=== PATIENT | female | born 1950 | race Caucasian/White ===

== ENCOUNTER 2019-10-02 11:54 | Emergency (ER) | payer MEDICARE, SELFPAY ==
--- NOTE | ~2019-10-02 | XR_ITS ---
EXAMINATION: XR chest 2V DATE: 10/02/2019 12:51 INDICATION: Cough TECHNIQUE: PA and lateral views of the chest are obtained. COMPARISON: 11/22/2011 FINDINGS: There is a large hiatal hernia. The lungs are free of acute opacities. There is no pleural effusion or pneumothorax. The cardiomediastinal silhouette is normal. Thoracolumbar levoscoliosis is noted. IMPRESSION: 1. No acute cardiopulmonary abnormality. 2. Large hiatal hernia. Reviewed, dictated and finalized at location A.
[2019-10-02 12:09] VITALS: BP 124/69; PULSE 89; RESP 18; TEMP 37.3; O2SAT 100
--- NOTE | 2019-10-02 12:35 | ED.URI ---
HPI - URI/Sore Throat General Chief Complaint: Upper Respiratory Infection Stated Complaint: Cough,Congestion Source: patient Mode of arrival: ambulatory Limitations: no limitations History of Present Illness HPI Narrative: The patient, who is a former smoker/ drinker, presents with 4 day history of dry cough, possible wheezes,definite nasal congestion mild sore throat, pain upon inhalation. No fever measured, earache, precordial CP, shortness of breath, swelling to hands or feet. Pt states that she traveled September 18 from [place], [place] to [facility]. She uses wheel chair , and occ walker after amputation ~[2010] . Pt notes living with her healthy daughter and denies any sick contacts. She is unsure of the last time she had a CXR and denies using an nebulizers or inhalers. MD elicited complaint: cough (dry) Onset (ago): day(s) (4) Context: recent travel Associated symptoms: sore throat and other (pain upon inhalation, wheezes) Related Data Home Medications Medication Instructions Recorded Confirmed amlodipine 2.5 mg PO DAILY 10/02/19 10/02/19 clonidine HCl 0.1 mg PO DAILY 10/02/19 10/02/19 gabapentin 100 mg PO DAILY 10/02/19 10/02/19 simvastatin 5 mg PO DAILY 10/02/19 10/02/19 triamterene 50 mg PO DAILY 10/02/19 10/02/19 Allergies Allergy/AdvReac Type Severity Reaction Status Date / Time Penicillins Allergy Unknown Verified 10/02/19 12:14 Review of Systems Review of Systems: Narrative: General/Constitutional: Denies: weight loss,fever Eyes: Denies: Redness,discharge Ears/Nose/Throat: Denies: Epistaxis,ear discharge Respiratory: Denies: Hemoptysis Gastrointestinal: Denies: Vomiting, Bleeding-rectal Skin: Denies: Lumps, eruption Neurologic: Denies: Focal Weakness,Sz Hematologic: Denies: Petechiae/Purpura Psychiatric: Denies: Suicidal ideation All Other Systems: Reviewed and Negative All systems reviewed & are unremarkable except as noted in HPI and below [facility] Family History Family History (Updated 10/25/16 @ 23:56 by DOCTOR UNKNOWN) Father Acute myocardial infarction, Onset Age: 61 Patient's father is Sibling Patient's sister is in good health, Onset Age: 72 Mother Carcinoma of colon, Onset Age: 77 Patient's mother is Social History Social History Alcohol intake: never Comments At time of signature, agree with nursing past medical, surgical, social and family history. There is no relevant family history pertinent to the presenting complaint. Exam Narrative: Exam Narrative: General Appearance: Aged appearing, Well nourished EYE: PERRLA, Conjunctiva clear Ears: Auditory canal normal, TM normal Nose: Rhinorrhea, Mucousal erythema Mouth/Throat: MM moist, Uvula midline, Pharyngeal erythema Neck: Supple, No adenopathy Respiratory: No respiratory distress, Increased AP diameter equal, CTA with decreased BS at bases Cardiovascular: RRR, No JVD Musculoskeletal: scoliotic, diffuse decreased OM and strength Skin: Warm, Dry Neurological: A&O x3, CN II-XII intact Psychiatric: Normal mood, Normal affect Course Vital Signs Vital signs: Vital Signs Temperature 99.1 F 10/02/19 12:09 Pulse Rate 89 10/02/19 12:09 Respiratory Rate 18 10/02/19 12:09 Blood Pressure 124/69 10/02/19 12:09 Pulse Oximetry 100 10/02/19 12:09 Temperature 99.1 F 10/02/19 12:09 Pulse Rate 89 10/02/19 12:09 Respiratory Rate 18 10/02/19 12:09 Blood Pressure 124/69 10/02/19 12:09 Pulse Oximetry 100 10/02/19 12:09 MDM - URI/Sore Throat Lab Data Labs: Influenza A Screen Negative Reference Range: Negative Influenza B Screen Negative Reference Range: Negative Discharge Plan Discharge Clinical Impression: Upper respiratory infection Qualifiers: URI type: unspecified URI Qualified Code(s): J06.9 - Acute upper respiratory infection, unspecified Patient Disposition: Home, Self-Car
== END 2019-10-02 13:25 | disposition home or self-care (01) ==
PROVIDERS: Emergency Provider Emergency Medicine
DX: J06.9 Acute upper respiratory infection, unspecified (principal); G62.9 Polyneuropathy, unspecified; E78.00 Pure hypercholesterolemia, unspecified; I10 Essential (primary) hypertension; Z89.431 Acquired absence of right foot
CPT/HCPCS: 71046; 87804; 99203; G0463

== ENCOUNTER 2020-06-15 11:37 | Inpatient (IN) | payer MEDICARE, MEDICAID, SELFPAY ==
--- NOTE | ~2020-06-15 | MR_ITS ---
EXAMINATION: MR foot LT wo con DATE: 06/19/2020 18:31 INDICATION: Wound at the left great toe TECHNIQUE: Magnetic resonance imaging (MRI) of the left fore/mid foot was performed without intraveno us contrast. Sequences included sagittal T1-weighted FSE, sagittal fluid sensitive FSE STIR, coronal T2-weighted FS FSE, coronal T1-weighted FSE, axial T2-weighted FS FSE, and axial T1-weighted FSE. Int ravenous contrast unable to be administered at this time due to nonfunctional peripheral IV. Postcont rast imaging is required amount the patient be returned and additional pre and postcontrast images ob tained following placement of a functional IV. COMPARISON: Left foot radiographs dated 06/15/2020 FINDINGS: Second-fourth hammertoe deformities. No fracture. There is erosion of the tuft of the left first dist al phalanx with marrow edema throughout the distal phalanx which is concerning for osteomyelitis. The re is however no discrete geographic region of absent T1 marrow fat signal to more specifically sugge st this. Also complaining concern for osteomyelitis is the presence of a fluid collection measuring u p to 5 mm in maximal thickness which extends circumferentially around the base of the distal phalanx and mid to distal aspect of the proximal phalanx which is suspicious for abscess. Bone marrow signal is otherwise normal throughout with no other lesions suspicious for osteomyelitis. Mild polyarticular osteoarthritis at multiple tarsal metatarsal, metatarsophalangeal and interphalangeal joints. IMPRESSION: 1. Marrow edema at the first distal phalanx with erosion at the tuft which is concerning for osteomye litis. 2. Fluid collection surrounding the base of the first distal phalanx and proximal to mid aspect of th e proximal phalanx which is suspicious for abscess. 3. Intravenous contrast unable to be administered at this time due to nonfunctional peripheral IV. Po stcontrast imaging is required amount the patient be returned and additional pre and postcontrast lloyd ges obtained following placement of a functional IV. Reviewed, dictated and finalized at location A. RY DERRICK OPERATOR IMPRESSION: 1. Marrow edema at the first distal phalanx with erosion at the tuft which is c oncerning for osteomyelitis. 2. Fluid collection surrounding the base of the first distal phalanx and proxim al to mid aspect of the proximal phalanx which is suspicious for abscess. 3. Intravenous contrast unable to be administered at this time due to nonfuncti onal peripheral IV. Postcontrast imaging is required amount the patient be retu rned and additional pre and postcontrast images obtained following placement of a functional IV.
--- NOTE | ~2020-06-15 | XR_ITS ---
XR foot LT min 3V DATE: 06/15/2020 12:15 INDICATION: Great toe injury, stubbed toe today. TECHNIQUE: 4 views COMPARISON: None FINDINGS: There is diffuse osteopenia. No obvious fracture or dislocation is evident. Due to hammertoe deformities, the phalanges are not op timally demonstrated. If there is concern for an individual no fracture, consider individual toe radi ographs. IMPRESSION: Osteopenia No obvious fracture Hammertoe deformities, which limits evaluation of the toes. If there is concern for specific toe frac ture, recommend individual toe radiographs Reviewed, dictated and finalized at location A. UM EXHIBIT DESIGNER IMPRESSION: Osteopenia No obvious fracture Hammertoe deformities, which limits evaluation of the toes. If there is concern for specific toe fracture, recommend individual toe radiographs
--- NOTE | ~2020-06-15 | US_ITS ---
EXAMINATION: US arterial duplex LE DATE: 06/19/2020 09:39 INDICATION: Arterial occlusive disease. Left foot ulcer. TECHNIQUE: Multiple grayscale and Doppler ultrasound images of the arteries of the lower limbs were o btained. 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 Peak systolic velocity is 61 cm/s in common femoral artery and 41 cm/s in profunda femoris artery. There is total occlusion of right superficial femoral artery. Peak systolic velocity is 29 cm/s in right popliteal artery, 11 cm/s in right posterior tibial artery, 13 cm/s in peroneal artery, and 29 cm/s in anterior tibial art preston. Peak systolic velocity is 348 cm/s in left common femoral artery and 84 cm/s in profunda femoral chuckie ry. There is total occlusion of proximal to mid left superficial femoral artery. Peak systolic veloci ty is 19 cm/s in distal superficial femoral artery, 28 cm/s in popliteal artery, 10 cm/s in posterior tibial artery, 15 cm/s in peroneal artery, and 40 cm/s in anterior tibial artery. IMPRESSION: 1. 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 2. 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 3. Increased pressure gradients between left common femoral artery and profunda femoral artery and be tween left popliteal artery and posterior tibial artery, consistent with [id number] stenosis. Reviewed, dictated and finalized at location A. BLOCK ARTIST IMPRESSION: 1. 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 2. 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 3. Increased pressure gradients between left common femoral artery and profunda femoral artery and between left popliteal artery and posterior tibial artery, consistent with [id number] stenosis.
--- NOTE | ~2020-06-15 | US_ITS ---
EXAMINATION: US arterial ankle brachial ind DATE: 06/17/2020 11:19 INDICATION: Peripheral arterial disease. TECHNIQUE: Segmental pressures and plethysmographic and Doppler waveforms of the brachial and lower e xtremity arteries were obtained. COMPARISON: Arterial Doppler and segmental pressures 05/23/2011 FINDINGS: Right and left brachial artery pressures of 149 mm Hg and 136 mm Hg, respectively, are concordant (no rmal difference <= 30 mmHg). There is no detectable flow in the right posterior tibial artery. The right ankle-brachial index (GUY ) is 0.34 (normal >= 0.9-1.0). The right toes are absent. Arterial Doppler waveforms are noisy in roberto carlos salis pedis. There is no detectable flow in the left posterior tibial artery. The left GUY is 0.36. The left great toe is bandaged. Arterial Doppler waveforms are noisy in left dorsalis pedis. IMPRESSION: 1. Severely decreased ABIs, consistent with arterial occlusive disease. Reviewed, dictated and finalized at location A. ASSISTANT
[2020-06-15 11:42] VITALS: BP 125/74; PULSE 112; RESP 16; TEMP 36.9; O2SAT 97
--- NOTE | 2020-06-15 12:07 | ED.LOWEXIN ---
HPI - Extremity Injury (Lower) General Chief Complaint: Extremity Injury, Lower Stated Complaint: toe infection Time Seen by Provider: 06/15/20 11:48 History of Present Illness HPI Narrative: Patient is a 70-year-old female who presents ER with potential infection to her left great toe. Patient reports 4 days ago she kicked her coffee table by accident while walking. She did notice that she may have injured herself. Today she was febrile and she noticed that her toe is red and swollen and bruised. There is redness extending into her midfoot. Patient has history of amputation of all the toes of the opposite foot. She has history of diabetes that is controlled after having lost weight and changing her diet. Related Data Home Medications Medication Instructions Recorded Confirmed clonidine HCl 0.05 mg PO BID 10/02/19 06/15/20 gabapentin 100 mg PO HS 10/02/19 06/15/20 amlodipine 5 mg PO DAILY 06/15/20 06/15/20 melatonin 5 mg PO HS PRN 06/15/20 06/15/20 simvastatin 20 mg PO HS 06/15/20 06/15/20 temazepam 15 mg PO HS 06/15/20 06/15/20 triamterene-hydrochlorothiazid 37.5 tablet PO DAILY 06/15/20 06/15/20 Allergies Allergy/AdvReac Type Severity Reaction Status Date / Time Penicillins Allergy Unknown Rash Verified 06/15/20 11:48 nickel Allergy Rash Verified 06/15/20 11:48 Review of Systems Review of Systems: All systems reviewed & are unremarkable except as noted in HPI and below Constitutional: Constitutional: Denies chills, Reports fever(s) and Denies weakness Cardiovascular: Cardiovascular: Denies chest pain and Denies radiating jaw, neck or arm pain Respiratory: Respiratory: Denies cough and Denies dyspnea Musculoskeletal: Comments: Left great toe swelling and redness. Integumentary/Breasts: Comments: Cellulitis left foot PMFSH Past Medical History Medical History (Updated 06/15/20 @ 17:24 by José Miguel Dominguez MD) Diabetes GERD (gastroesophageal reflux disease) Hypercholesterolemia Hypertension Surgical History Surgical History (Updated 06/15/20 @ 12:13 by José Miguel Dominguez MD) H/O foot surgery Amputation of all the toes of the right foot. History of section History of tonsillectomy Family History Family History Father Acute myocardial infarction, Onset Age: 61 Patient's father is Sibling Patient's sister is in good health, Onset Age: 72 Mother Carcinoma of colon, Onset Age: 77 Patient's mother is Social History Social History Smoking packs per day: 0.75 Smoking cigarettes per day: 15.0 Years smoked: 40 Smoking pack-years: 30.00 Smoking status: Former smoker Smoking end date: 09/19/19 Alcohol intake: current Drinks per week: 7 Substance use: never Substance use type: does not use Spiritual care concerns: No Exam Narrative: Exam Narrative: GENERAL: Well-appearing, well-nourished, and in no acute distress. HEAD: Normocephalic, atraumatic. CHEST: Clear to auscultation. No respiratory distress. HEART: Regular rate and rhythm. Normal peripheral pulses. ABDOMEN: Soft, nontender, nondistended. EXTREMITIES: Right lower extremity with amputation of all the toes of the right foot. Left lower extremity unremarkable with exception of the left great toe which is swollen and contused. There is minor ulceration to the great toe distal aspect without drainage. There is cellulitis extending up the foot to the ankle of the left lower extremity. SKIN: Warm, dry, no rash. Cellulitis is noted above. NEURO: Alert and oriented x3. PSYCH: Normal mood and affect. Course Course Emergency Course: Admit to hospitalist with IV abx. Vital Signs Vital signs: Vital Signs Temperature 98.5 F 06/15/20 11:42 Pulse Rate 112 H 06/15/20 11:42 Respiratory Rate 16 06/15/20 11:42 Blood Pressure 125/74 06/15/20 11:42 Pulse Oximetry 97 06/15/20 11:42 Temperature 9
[2020-06-15 13:22] LABS: Basophils Absolute Auto 0.1 K/mm3 (0.0-0.1); Basophils Percent Auto 0.4 % (0.2-1.2); Eosinophils Percent Auto 0.3 % (0-4.4); Hematocrit 37.9 % (37.0-47.0); Hemoglobin 13.1 g/dL (12.0-15.0); Immature Granulocyte Absolute 0.07 K/mm3 (0.00-0.031); Immature Granulocyte Percent A 0.5 % (0-0.5); Lymphocytes Absolute Auto 1.49 K/mm3 (0.9-3.2); Lymphocytes Percent Auto 10.9 % (18.3-44.2); Mean Corpuscular HGB Conc 34.6 g/dl (32-36); Mean Corpuscular Hemoglobin 30.3 pg (26-34); Mean Corpuscular Volume 87.5 fl (80-100); Mean Platelet Volume 9.6 fl (7.4-10.4); Monocytes Absolute Auto 1.2 K/mm3 (0.1-0.6); Neutrophils Absolute Auto 10.8 K/mm3 (1.3-6.7); Neutrophils Percent Auto 78.9 % (45.5-73.1); Platelet Count Result 226 k/mm3 (150-375); Red Blood Count 4.33 M/mm3 (4.2-5.4); Red Cell Distribution Width 12.4 % (11.5-14.5); White Blood Count 13.7 K/mm3 (4.5-10.0)
[2020-06-15 13:32] LABS: Lactic Acid Reflex 0.9 mmol/L (0.7-2.1)
[2020-06-15 13:36] LABS: Prothrombin Time 13.5 Seconds (11.1-14.7)
[2020-06-15 13:37] LABS: Partial Thromboplastin Time 29.2 SECONDS (22.3-36.8)
[2020-06-15 13:41] LABS: Anion Gap 14 mmol/L (8-16); Blood Urea Nitrogen 27 mg/dL (7-17); Calcium 9.3 mg/dL (8.4-10.2); Carbon Dioxide 26 mmol/L (22-30); Chloride 92 mmol/L (98-107); Estimated CRCL calculation 52 ml/min; Estimated Glomerular Filt Rate > 60; Glucose 115 mg/dL (65-105); Sodium 132 mmol/L (137-145)
[2020-06-15 15:57] VITALS: BP 125/74; PULSE 112; RESP 20; O2SAT 97
[2020-06-15 16:00] VITALS: BP 119/62; PULSE 113; RESP 16; TEMP 36.1; O2SAT 97
--- NOTE | 2020-06-15 16:35 | ADMGEN ---
This patient, Camilla Valadez, was admitted to 2 Medical Room 259-01. Patient/family oriented to hospital policies and general routines including ID bracelet, bed and alarms, visiting hours, pain management, procedures, bathroom and other care routines, personal items, smoking policy, room service/diet, and visiting hours. Information on how to activate the Rapid Response Team has been discussed. Patient/Family are encouraged to report perceived risks to care and to ask questions if they do not understand what they are told or what they should do.
[2020-06-15 16:48] LABS: Glucose Point of Care 123 (65-105)
[2020-06-15 17:17] VITALS: BMI 21.6
--- NOTE | 2020-06-15 18:45 | PM.IMHP ---
H&P: HPI History of Present Illness Date/Time: 06/15/20 18:45 Chief complaint: Left great toe injury. Narrative: Camilla Valadez is a 70-year-old female with diet-controlled diabetes, peripheral vascular disease, hypertension, and hyperlipidemia presented to the emergency department earlier today from home for evaluation of a left great toe injury. On Friday she accidentally struck her left 1st toe on her oak coffee table by accident while walking and it sounds as though she sustained an abrasion at the top of the toe. It was a bit sore the next day with swelling and redness but today the erythema and edema have gotten markedly worse, now with lymphangitic streaking. She apparently was running a low-grade fever today as well, prompting her visit to the emergency department. She has no current complaints and specifically denies chills, sweats, nausea, vomiting, and history of multidrug resistant organisms. Review of Systems Review of Systems: Narrative: Twelve systems were reviewed with pertinent positives and negatives as per HPI. She has been off of medications for her diabetes since 2011. She has some mild neuropathy in her right foot. No nephropathy or retinopathy. She has had a right transmetatarsal amputation due to what sounds like gangrene from peripheral vascular disease, and is now status post right lower extremity bypass in 2010. She denies claudication. Except as documented, all other systems were reviewed and are negative. [facility] Past Medical History Medical History (Updated 06/15/20 @ 20:50 by Anni Vee PA-C) Diet-controlled type 2 diabetes mellitus Gastroesophageal reflux disease Hypercholesterolemia Hypertension Peripheral arterial disease Surgical History Surgical History (Updated 06/15/20 @ 20:45 by Anni Vee PA-C) History of section History of tonsillectomy History of transmetatarsal amputation of right foot (~06/2011) History of vascular surgery (~06/2011) Right lower extremity bypass. Family History Family History Father Acute myocardial infarction, Onset Age: 61 Patient's father is Sibling Patient's sister is in good health, Onset Age: 72 Mother Carcinoma of colon, Onset Age: 77 Patient's mother is Social History Social History (Updated 06/15/20 @ 20:46 by Anni Vee PA-C) Social History: Surrogate decision maker: Roberto Valadez, son. Code status: Full code. Smoking packs per day: 0.75 Smoking cigarettes per day: 15.0 Years smoked: 40 Smoking pack-years: 30.00 Smoking status: Former smoker Smoking end date: 09/19/19 Alcohol intake: current Drinks per week: 7 Substance use: never Substance use type: does not use Additional living arrangements comments: Patient recently moved back to the area after living in [place], [place] for 7 years. Additional occupation/education comments: Retired. Spiritual care concerns: No Meds Home Medications and Allergies Home Medications Medication Instructions Recorded Confirmed Type clonidine HCl 0.05 mg PO BID 10/02/19 06/15/20 History gabapentin 100 mg PO HS 10/02/19 06/15/20 History amlodipine 5 mg PO DAILY 06/15/20 06/15/20 History melatonin 5 mg PO HS PRN 06/15/20 06/15/20 History simvastatin 20 mg PO HS 06/15/20 06/15/20 History temazepam 15 mg PO HS 06/15/20 06/15/20 History triamterene-hydrochlorothiazid 37.5 tablet PO DAILY 06/15/20 06/15/20 History Allergies Allergy/AdvReac Type Severity Reaction Status Date / Time Penicillins Allergy Unknown Rash Verified 06/15/20 11:48 nickel Allergy Rash Verified 06/15/20 11:48 Vital Signs Vital Signs - 24 hr 06/15/20 11:42 06/15/20 15:57 06/15/20 16:00 Temperature 98.5 F 97.0 F L Pulse Rate 112 H 112 H 113 H Respiratory Rate 16 20 16 Blood Pressure 125/74 125/74 119/62 Pulse Oximetry 97 97 97 Exa
[2020-06-15 20:00] VITALS: BP 105/70; PULSE 110; RESP 16; TEMP 37; O2SAT 95
[2020-06-15] MEDS: HYDROcodone/acetaminophen (*CRX) 5-325 MG TABLET 1 TAB PO (20:32)
[2020-06-15] MEDS: POTASSIUM CHLORIDE 20 MEQ TABLET 40 MEQ PO (21:27)
[2020-06-15] MEDS: POTASSIUM CHLORIDE 20 MEQ TABLET PO (21:28)
[2020-06-15] MEDS: GABAPENTIN 100 MG CAPSULE PO (21:29)
[2020-06-15] MEDS: cloNIDine HCL 0.05 MG TABLET PO (21:29)
[2020-06-15] MEDS: SIMVASTATIN 20 MG TABLET PO (21:29)
[2020-06-16] VITALS (8 sets, daily range): BP systolic 98–148; BP diastolic 59–76; PULSE 100–117; RESP 16–20; TEMP 36.3–37.2; O2SAT 95–100
[2020-06-16 05:47] LABS: Basophils Percent Auto 0.3 % (0.2-1.2); Eosinophils Percent Auto 0.3 % (0-4.4); Hematocrit 34.7 % (37.0-47.0); Hemoglobin 12.1 g/dL (12.0-15.0); Immature Granulocyte Absolute 0.08 K/mm3 (0.00-0.031); Immature Granulocyte Percent A 0.7 % (0-0.5); Lymphocytes Absolute Auto 0.98 K/mm3 (0.9-3.2); Lymphocytes Percent Auto 8.5 % (18.3-44.2); Mean Corpuscular HGB Conc 34.9 g/dl (32-36); Mean Corpuscular Hemoglobin 30.3 pg (26-34); Mean Corpuscular Volume 86.8 fl (80-100); Mean Platelet Volume 9.1 fl (7.4-10.4); Monocytes Absolute Auto 0.9 K/mm3 (0.1-0.6); Monocytes Percent Auto 7.4 % (2.6-8.5); Neutrophils Absolute Auto 9.6 K/mm3 (1.3-6.7); Neutrophils Percent Auto 82.8 % (45.5-73.1); Platelet Count Result 205 k/mm3 (150-375); Red Cell Distribution Width 12.4 % (11.5-14.5); White Blood Count 11.6 K/mm3 (4.5-10.0)
[2020-06-16 05:52] LABS: Hemoglobin A1C 5.1 % (<5.7)
[2020-06-16 06:00] LABS: Anion Gap 11 mmol/L (8-16); Blood Urea Nitrogen 27 mg/dL (7-17); Calcium 9.5 mg/dL (8.4-10.2); Carbon Dioxide 26 mmol/L (22-30); Chloride 95 mmol/L (98-107); Estimated CRCL calculation 46 ml/min; Estimated Glomerular Filt Rate > 60; Glucose 133 mg/dL (65-105); Magnesium 1.9 mg/dL (1.6-2.3); Potassium 4.1 mmol/L (3.4-5.0); Sodium 132 mmol/L (137-145)
[2020-06-16 06:32] LABS: CRP 34.7 mg/dL (<1.0)
[2020-06-16] MEDS: amLODIPine BESYLATE 5 MG TABLET PO (08:57)
[2020-06-16] MEDS: cloNIDine HCL 0.05 MG TABLET PO ×2 (08:59→21:07)
[2020-06-16] MEDS: HYDROcodone/acetaminophen (*CRX) 5-325 MG TABLET 1 TAB PO (14:23)
--- NOTE | 2020-06-16 15:52 | PM.IMPN ---
Progress Note: A&P Assessment and Plan (1) Cellulitis of great toe, left: Code(s): L03.032 - Cellulitis of left toe Status: Acute Assessment and Plan: Left great toe erythematous, edematous with lymphagitic streaking. Area is painful. Foot x-ray with no significant findings. Leukocytosis is improving. She is afebrile. Continue Imipenem and Vancomycin per antibiotic stewardship guidelines Area of erythema has been marked and will continue with serial exams to monitor for improvement. Blood and wound cultures pending. (2) Diet-controlled type 2 diabetes mellitus: Code(s): E11.9 - Type 2 diabetes mellitus without complications Status: Acute Assessment and Plan: A1c is 5.1. Blood sugars have been well controlled. continue diabetic diet (3) Hypokalemia: Code(s): E87.6 - Hypokalemia Status: Acute Assessment and Plan: potassium low at presentation and replaced. potassium improved today. Monitor BMP daily. Replace potassium as needed. (4) Peripheral arterial disease: Code(s): I73.9 - Peripheral vascular disease, unspecified Status: Acute Assessment and Plan: Bilateral feet are warm with good dorsal pedal pulses. Evaluate GUY in light of infection/wound (5) Hypertension: Code(s): I10 - Essential (primary) hypertension Status: Inactive Assessment and Plan: blood pressure evaluated today and stable at 148/75. Continue amlodipine and clonidine (6) Hypercholesterolemia: Code(s): E78.00 - Pure hypercholesterolemia, unspecified Status: Inactive Assessment and Plan: continue simvastatin Subjective Date/time seen: 06/16/20 15:52 Interval history: Date of service: 06/16/2020 Camilla Valadez is a 70 year old female with a history of diet-controlled type 2 DM, HTN, and PAD who is seen in follow up for cellulitis of the left great toe. She is feeling better today. She feels that the redness has improved. Her toe is less tender to palpation. She is able to bear weight and ambulate to the restroom. She reports mild discomfort with ambulation. She had noted lymphangitic streaking prior to presentation but denies any further progression. Denies nausea, vomiting, fever, chills. No SOB, cough, chest pain, or palpitations. She is having regular bowel movements. SHe has no additional concerns. Appetite is good. Review of Systems Review of Systems: All systems reviewed & are unremarkable except as noted in HPI and below Exam Narrative: Exam Narrative: Ms. Valadez is a well-nourished, well-appearing 70-year-old female who is lying supine in bed. She appears comfortable and is in NARD. HR 104, BP 148/75, RR 18, T 98.1, 95% on room air Neuro: awake, alert and oriented x4, speech clear, no focal neuro deficits noted HEENMT: normocephalic, atraumatic, EOMI, sclerae anicteric, moist oral mucosa, tongue midline, nares patent Neck: supple, no lymphadenopathy Respiratory: clear to auscultation bilaterally, nonlabored breathing Cardio: regular rate, regular rhythm with S1-S2 Abdomen: nondistended, normoactive bowel sounds, soft, nontender to palpation, no rigidity or guarding Extremities: right foot with transmetatarsal amputation changes noted. LLE with no cyanosis, clubbing, DP pulses 2+ bilaterally. Hammertoes noted on left foot. Left great toe tender to palpation. Skin: right great toe and surrounding medial aspect of foot erythematous and edematous. No significant warmth to palpation. Small abrasion on distal tip of toe. Lymphangitic streaking up to left mid foot noted. Psych: appropriate mood and affect, judgment and insight intact Objective Data Vital Signs Vital Signs: Vital Signs - 24 hr 06/15/20 15:57 06/15/20 16:00 06/15/20 20:00 Temperature 97.0 F L 98.6 F Pulse Rate 112 H 113 H 110 H Respiratory Rate 20 16 16 Blood Pressure 125/74 119/62 105/70 Pulse Oximetry 97 97 95
--- NOTE | 2020-06-16 20:25 | ECG_ITS ---
Measurements Intervals [place] Rate: 108 P: 19 CT: 164 QRS: 218 QRSD: 114 T: -10 QT: 350 QTc: 470 Interpretive Statements SINUS TACHYCARDIA INCOMPLETE RIGHT BUNDLE BRANCH BLOCK BORDERLINE R WAVE PROGRESSION, ANTERIOR LEADS BORDERLINE ST-T WAVE ABNORMALITY- INFERIOR LEADS ABNORMAL ECG Electronically Signed On 06-16-2020 14:35:06 SURGICAL SPECIALIST by Rajeev Morel D.O.
[2020-06-16] MEDS: GABAPENTIN 100 MG CAPSULE PO (21:06)
[2020-06-16] MEDS: SIMVASTATIN 20 MG TABLET PO (21:07)
[2020-06-16] MEDS: TEMAZEPAM (*CRX) 15 MG CAPSULE PO (21:07)
[2020-06-17] VITALS (10 sets, daily range): BP systolic 123–156; BP diastolic 61–83; PULSE 105–127; RESP 14–18; TEMP 36.3–37.2; O2SAT 92–99
[2020-06-17] MEDS: HYDROcodone/acetaminophen (*CRX) 5-325 MG TABLET 1 TAB PO ×3 (02:00→11:06)
[2020-06-17 05:26] LABS: Hematocrit 33.2 % (37.0-47.0); Hemoglobin 11.4 g/dL (12.0-15.0); Mean Corpuscular HGB Conc 34.3 g/dl (32-36); Mean Corpuscular Hemoglobin 30.4 pg (26-34); Mean Corpuscular Volume 88.5 fl (80-100); Mean Platelet Volume 8.9 fl (7.4-10.4); Platelet Count Result 222 k/mm3 (150-375); Red Blood Count 3.75 M/mm3 (4.2-5.4); Red Cell Distribution Width 12.3 % (11.5-14.5); White Blood Count 12.5 K/mm3 (4.5-10.0)
[2020-06-17 06:44] LABS: Anion Gap 5 mmol/L (8-16); Blood Urea Nitrogen 21 mg/dL (7-17); CRP 24.2 mg/dL (<1.0); Calcium 9.2 mg/dL (8.4-10.2); Carbon Dioxide 30 mmol/L (22-30); Chloride 94 mmol/L (98-107); Estimated CRCL calculation 59 ml/min; Estimated Glomerular Filt Rate > 60; Glucose 123 mg/dL (65-105); Potassium 3.4 mmol/L (3.4-5.0); Sodium 129 mmol/L (137-145)
[2020-06-17] MEDS: cloNIDine HCL 0.05 MG TABLET PO ×2 (08:21→20:11)
[2020-06-17] MEDS: amLODIPine BESYLATE 5 MG TABLET PO (08:22)
[2020-06-17] MEDS: SODIUM CHLORIDE 0.9% IV 500 ML IV CONT (11:08)
[2020-06-17 11:45] LABS: Glucose Point of Care 163 (65-105)
--- NOTE | 2020-06-17 13:21 | PM.IMPN ---
Progress Note: A&P Assessment and Plan (1) Cellulitis of great toe, left: Code(s): L03.032 - Cellulitis of left toe Status: Acute Assessment and Plan: Left great toe erythematous, edematous with lymphagitic streaking. Foot x-ray with no significant findings. She is afebrile. CRP improved. Mild leukocytosis persists. Wound culture positive for staphylococcus aureus. Continue Imipenem and Vancomycin per antibiotic stewardship guidelines Area of erythema has been marked and will continue with serial exams to monitor for improvement. Blood cultures pending. Await susceptibility report of wound culture. (2) Diet-controlled type 2 diabetes mellitus: Code(s): E11.9 - Type 2 diabetes mellitus without complications Status: Acute Assessment and Plan: A1c is 5.1. Blood sugars have been well controlled. continue diabetic diet Accuchecks, low dose SSI, and hypoglycemic protocol (3) Hypokalemia: Code(s): E87.6 - Hypokalemia Status: Acute Assessment and Plan: potassium low at presentation and replaced. potassium stable today. Monitor BMP daily. Replace potassium as needed. (4) Peripheral arterial disease: Code(s): I73.9 - Peripheral vascular disease, unspecified Status: Acute Assessment and Plan: Bilateral feet are warm with 2+ dorsal pedal pulses. No ulcerations or skin changes. No claudication symptoms. GUY performed today in light of infection/wound. Await results. (5) Hypertension: Code(s): I10 - Essential (primary) hypertension Status: Inactive Assessment and Plan: blood pressure evaluated today and stable at 156/61. Continue amlodipine and clonidine Monitor BP closely and adjust medications as needed (6) Hypercholesterolemia: Code(s): E78.00 - Pure hypercholesterolemia, unspecified Status: Inactive Assessment and Plan: continue simvastatin (7) Sinus tachycardia: Code(s): R00.0 - Tachycardia, unspecified Status: Acute Assessment and Plan: Persistent, mild tachycardia in the 110s. Suspect secondary to acute infection. EKG showed sinus tachycardia. She is asymptomatic. administer 500 ml fluid bolus check TSH check orthostatics. Monitor hemodynamic trends Subjective Date/time seen: 06/17/20 13:21 Interval history: Date of service: 06/17/2020 Camilla Valadez is a 70 year old female with a history of diet-controlled type 2 DM, HTN, and PAD who is seen in follow up for cellulitis of the left great toe. She is doing well today. Her pain is generally well controlled. She reports only tenderness. She is able to bear weight and ambulate but notes this causes increased tenderness. She has not noted any color changes, increased redness, purulence, or streaking. Denies fever or chills. No nausea or vomiting. She has been eating well. Denies shortness of breath, chest pain, or palpitations. Last BM 2-3 days ago. Review of Systems Review of Systems: All systems reviewed & are unremarkable except as noted in HPI and below Exam Narrative: Exam Narrative: Ms. Valadez is a well-nourished, well-appearing 70-year-old female who is lying supine in bed. She appears comfortable and is in NARD. HR 104, BP 148/75, RR 18, T 98.1, 95% on room air Neuro: awake, alert and oriented x4, speech clear, no focal neuro deficits noted HEENMT: normocephalic, atraumatic, EOMI, sclerae anicteric, moist oral mucosa, tongue midline, nares patent Neck: supple, no lymphadenopathy Respiratory: clear to auscultation bilaterally, nonlabored breathing Cardio: regular rate, regular rhythm with S1-S2 Abdomen: nondistended, normoactive bowel sounds, soft, nontender to palpation, no rigidity or guarding Extremities: right foot with transmetatarsal amputation changes noted. Hammertoe deformity noted on left foot. LLE with no cyanosis, clubbing, DP pulses 2+ bilaterally. Left
[2020-06-17 13:48] LABS: Sodium 128 mmol/L (137-145)
[2020-06-17 17:50] LABS: Glucose Point of Care 136 (65-105)
[2020-06-17] MEDS: TEMAZEPAM (*CRX) 15 MG CAPSULE PO (20:11)
[2020-06-17] MEDS: GABAPENTIN 100 MG CAPSULE PO (20:11)
[2020-06-17] MEDS: SIMVASTATIN 20 MG TABLET PO (20:11)
[2020-06-17 20:25] LABS: Vancomycin Trough 10.8 ug/mL (10.0-20.0)
--- NOTE | 2020-06-17 22:33 | PC.NURSE ---
Pt refused to have her blood glucose checked at bedside. She said, I am not a diabetic. I don't need my sugar checked this often!
[2020-06-18] MEDS: HYDROcodone/acetaminophen (*CRX) 5-325 MG TABLET 1 TAB PO ×2 (01:05→05:20)
[2020-06-18 02:00] VITALS: BP 126/74; PULSE 117; RESP 16; TEMP 36.6; O2SAT 94
[2020-06-18 06:00] VITALS: BP 115/67; PULSE 117; RESP 16; TEMP 36.4; O2SAT 94
[2020-06-18 06:03] LABS: Hematocrit 34.3 % (37.0-47.0); Hemoglobin 11.8 g/dL (12.0-15.0); Mean Corpuscular HGB Conc 34.4 g/dl (32-36); Mean Corpuscular Hemoglobin 30.4 pg (26-34); Mean Corpuscular Volume 88.4 fl (80-100); Mean Platelet Volume 9.1 fl (7.4-10.4); Platelet Count Result 289 k/mm3 (150-375); Red Blood Count 3.88 M/mm3 (4.2-5.4); Red Cell Distribution Width 12.3 % (11.5-14.5); White Blood Count 13.2 K/mm3 (4.5-10.0)
[2020-06-18 06:47] LABS: Anion Gap 8 mmol/L (8-16); Blood Urea Nitrogen 13 mg/dL (7-17); CRP 23.4 mg/dL (<1.0); Calcium 9.5 mg/dL (8.4-10.2); Carbon Dioxide 29 mmol/L (22-30); Chloride 93 mmol/L (98-107); Estimated CRCL calculation 67 ml/min; Estimated Glomerular Filt Rate > 60; Glucose 110 mg/dL (65-105); Potassium 3.2 mmol/L (3.4-5.0); Sodium 130 mmol/L (137-145)
[2020-06-18 07:16] LABS: Thyroid Stimulating Hormone Reflex 0.838 uIU/mL (0.465-4.68)
[2020-06-18] MEDS: cloNIDine HCL 0.05 MG TABLET PO ×2 (08:20→20:06)
[2020-06-18] MEDS: amLODIPine BESYLATE 5 MG TABLET PO (08:20)
[2020-06-18] MEDS: ASPIRIN 81 MG ENTERIC TABLET PO (08:20)
[2020-06-18] MEDS: POTASSIUM CHLORIDE 20 MEQ TABLET 40 MEQ PO (08:31)
[2020-06-18 09:36] VITALS: BP 134/78; PULSE 110; RESP 16; TEMP 36.4; O2SAT 96
--- NOTE | 2020-06-18 09:48 | PM.IMPN ---
Progress Note: A&P Assessment and Plan (1) Cellulitis of great toe, left: Code(s): L03.032 - Cellulitis of left toe Status: Acute Assessment and Plan: Left great toe erythematous, edematous with lymphagitic streaking which is improved today -Foot x-ray with no significant findings, will order MRI d/t purulent discharge, decreased GUY and labs to evaluate for osteomyelitis -She remains afebrile but tachycardic. Blood cx NGTD -Healing will be complicated d/t vascular disease. Will consult Dr. Crawford -Wound culture reviewed, unsure if represent true infection. Will continue vanc and imipenem. Will consult painter assistant due to GUY results and possible osteo. (2) Diet-controlled type 2 diabetes mellitus: Code(s): E11.9 - Type 2 diabetes mellitus without complications Status: Acute Assessment and Plan: A1c is 5.1. Blood sugars have been well controlled. -continue diabetic diet -Will stop accuchecks (3) Hypokalemia: Code(s): E87.6 - Hypokalemia Status: Acute Assessment and Plan: 3.2 today. Will replace (4) Peripheral arterial disease: Code(s): I73.9 - Peripheral vascular disease, unspecified Status: Acute Assessment and Plan: Severe PA D noted on GUY -patient reports no claudication symptoms in the recent past -she has seen vascular surgery many years ago but has never had any interventions -she quit smoking earlier this year but smoked 40 years prior -will start aspirin and increase simvastatin -will consult Dr. Crawford since the patient has an infection (5) Hypertension: Code(s): I10 - Essential (primary) hypertension Status: Inactive Assessment and Plan: Last blood pressure 134/78 -Continue amlodipine and clonidine -Monitor BP closely and adjust medications as needed (6) Hypercholesterolemia: Code(s): E78.00 - Pure hypercholesterolemia, unspecified Status: Inactive Assessment and Plan: -continue simvastatin Dose increased 06/18/20 (7) Sinus tachycardia: Code(s): R00.0 - Tachycardia, unspecified Status: Acute Assessment and Plan: Persistent, mild tachycardia in the 110s. Suspect secondary to acute infection. EKG showed sinus tachycardia. She is asymptomatic. -TSH normal -could be due to infection, blood cultures negative -euvolemic Time Spent With Patient Time with patient: 25 - 35 minutes Subjective Date/time seen: 06/18/20 09:48 Interval history: Pt is a 70-year-old female here for cellulitis. Patient was seen today and states her pain is better but earlier it was 12/28. The pain medication is helping. She says it appears better and less red today. She denies nausea, vomiting, numbness, tingling, fevers, chills, chest pain, shortness of breath, diarrhea or constipation. She states she stopped smoking in September but smoked less than a pack a day for 40 years. She has seen vascular surgery before but has not done so in years. No history of claudication signs or symptoms Review of Systems Review of Systems: All systems reviewed & are unremarkable except as noted in HPI and below Exam Narrative: Exam Narrative: General: Well developed well nourished patient in NAD HEENT: normocephalic Neck: supple Neuro: Alert and oriented x4 CV: Slightly tachycardic on exam rate 106. No murmurs Resp:CTA Abd: Soft, non distended. No pain to palpation. Positive bowel sounds Extremities: Left great toe with purulent discharge and erythema down the dorsal aspect of the foot. Pulses decreased but there. No calf tenderness or swelling Objective Data Vital Signs Vital Signs: Vital Signs - 24 hr 06/17/20 10:40 06/17/20 14:00 06/17/20 15:10 Temperature 97.6 F 97.9 F Pulse Rate 109 H 112 H 105 H Respiratory Rate 14 16 Blood Pressure 124/75 123/74 126/74 Pulse Oximetry 97 97 06/17/20 15:15 06/17/20 15:20 06/17/20 18:45 Temperature 97.9 F Pulse
--- NOTE | 2020-06-18 12:43 | PM.CNCAR ---
Assessment and Plan Assessment and plan (1) Peripheral arterial disease: Code(s): I73.9 - Peripheral vascular disease, unspecified Status: Acute Assessment and Plan: with h/o partial amputation in 2010 GUY 0.34 (R), 0.36 (L) consistent with severe disease She denies claudications. Erythema, pain and cellulitis appear to improve with abx. Will check arterial duplex of lower ext. (2) Sinus tachycardia: Code(s): R00.0 - Tachycardia, unspecified Status: Acute Assessment and Plan: Chronic per patient, worse now with underlying infection. Will monitor. . (3) Cellulitis of great toe, left: Code(s): L03.032 - Cellulitis of left toe Status: Acute History of Present Illness History of Present Illness Consult date/time: 06/18/20 12:43 70-y/o female with h/o diet-controlled diabetes, s/p partial amputation of right foot (~2010, at [facility]), HTN, HLD, ex smoker (Quit in September of this year) who presented to the hospital for left great toe injury. She struck her toe on her table by accident on Friday with subsequent erythema and persist pain since for which she has been treated with Abx for cellulitis with improvement of symptoms. She had GUY of 0.34 (R) and 0.36 (L) consistent with severe PVD for which we are consulted. Patient states she underwent amputation in 2010, for diabetic foot ulcer at that time. She never had stents or bypasses. She has no follow up with vascular surgery then. She denies claudications but he overall mobility is limited. She uses a walker. She denies chest pain or dyspnea. EKG shows sinus tachycardia at HR 108 with incomplete RBBB She quit smoking in September of this year Reason For Visit: Left great toe injury. Review of Systems Review of Systems: All systems reviewed & are unremarkable except as noted in HPI and below Constitutional: Constitutional: Denies fatigue and Denies headache(s) Eyes: Eyes: Denies blurry vision ENT: Reports Normal hearing present and Denies headache(s) Cardiovascular: Cardiovascular: Denies chest pain, Denies diaphoresis, Denies pedal edema, Denies leg edema, Denies lightheadedness, Denies palpitations and Denies dyspnea Respiratory: Respiratory: Denies cough and Denies dyspnea Gastrointestinal: Gastrointestinal: Denies abdominal pain Musculoskeletal: Musculoskeletal: Denies back pain Neurologic: Reports Normal hearing present and Denies headache(s) Psychiatric: Psychiatric: Denies anxiety Endocrine: Endocrine: Denies fatigue and Denies palpitations PMF Past Medical History Medical History (Updated 06/17/20 @ 13:29 by Erika Carreon PA-C) Diet-controlled type 2 diabetes mellitus Gastroesophageal reflux disease Hypercholesterolemia Hypertension Peripheral arterial disease Surgical History Surgical History (Updated 06/15/20 @ 20:45 by Anni Vee PA-C) History of section History of tonsillectomy History of transmetatarsal amputation of right foot (~06/2011) History of vascular surgery (~06/2011) Right lower extremity bypass. Family History Family History Father Acute myocardial infarction, Onset Age: 61 Patient's father is Sibling Patient's sister is in good health, Onset Age: 72 Mother Carcinoma of colon, Onset Age: 77 Patient's mother is Social History Social History (Updated 06/15/20 @ 20:46 by Anni Vee PA-C) Social History: Surrogate decision maker: Roberto Valadez, vasiliy. Code status: Full code. Smoking packs per day: 0.75 Smoking cigarettes per day: 15.0 Years smoked: 40 Smoking pack-years: 30.00 Smoking status: Former smoker Smoking end date: 09/19/19 Alcohol intake: current Drinks per week: 7 Substance use: never Substance use type: does not use Additional living arrangements comments: [place] the [place]
[2020-06-18 14:20] VITALS: BP 140/79; PULSE 112; RESP 18; TEMP 36.5; O2SAT 94
[2020-06-18] MEDS: ONDANSETRON INJ 4 MG/2 ML VIAL IV PUSH ×2 (14:37→22:14)
[2020-06-18 17:25] VITALS: BP 127/75; PULSE 116; RESP 18; TEMP 36.4; O2SAT 95
[2020-06-18] MEDS: SIMVASTATIN 20 MG TABLET 40 MG PO (20:06)
[2020-06-18] MEDS: TEMAZEPAM (*CRX) 15 MG CAPSULE PO (20:06)
[2020-06-18] MEDS: GABAPENTIN 100 MG CAPSULE PO (20:07)
[2020-06-18 22:00] VITALS: BP 143/85; PULSE 119; RESP 16; TEMP 36.2; O2SAT 96
[2020-06-19] VITALS (7 sets, daily range): BP systolic 103–136; BP diastolic 66–81; PULSE 103–120; RESP 16–20; TEMP 35.9–36.6; O2SAT 94–98
[2020-06-19] MEDS: ONDANSETRON INJ 4 MG/2 ML VIAL IV PUSH (04:26)
[2020-06-19 07:53] LABS: Basophils Percent Auto 0.2 % (0.2-1.2); Eosinophils Percent Auto 0.1 % (0-4.4); Hematocrit 34.4 % (37.0-47.0); Hemoglobin 11.8 g/dL (12.0-15.0); Immature Granulocyte Absolute 0.16 K/mm3 (0.00-0.031); Immature Granulocyte Percent A 1.1 % (0-0.5); Lymphocytes Absolute Auto 0.69 K/mm3 (0.9-3.2); Lymphocytes Percent Auto 4.6 % (18.3-44.2); Mean Corpuscular HGB Conc 34.3 g/dl (32-36); Mean Corpuscular Hemoglobin 29.8 pg (26-34); Mean Corpuscular Volume 86.9 fl (80-100); Mean Platelet Volume 8.8 fl (7.4-10.4); Monocytes Absolute Auto 0.9 K/mm3 (0.1-0.6); Monocytes Percent Auto 6.3 % (2.6-8.5); Neutrophils Percent Auto 87.7 % (45.5-73.1); Platelet Count Result 375 k/mm3 (150-375); Red Blood Count 3.96 M/mm3 (4.2-5.4); Red Cell Distribution Width 12.1 % (11.5-14.5); White Blood Count 14.9 K/mm3 (4.5-10.0)
[2020-06-19 08:02] LABS: Alanine Aminotransferase 13 U/L (4-35); Albumin Level 3.5 g/dL (3.5-5.1); Alkaline Phosphatase 118 U/L (38-126); Anion Gap 7 mmol/L (8-16); Aspartate Amino Transferase 23 U/L (14-36); Bilirubin,Total 0.5 mg/dL (0.2-1.3); Blood Urea Nitrogen 14 mg/dL (7-17); Calcium 9.6 mg/dL (8.4-10.2); Carbon Dioxide 29 mmol/L (22-30); Chloride 93 mmol/L (98-107); Estimated CRCL calculation 79 ml/min; Estimated Glomerular Filt Rate > 60; Glucose 134 mg/dL (65-105); Magnesium 1.7 mg/dL (1.6-2.3); Potassium 3.6 mmol/L (3.4-5.0); Sodium 129 mmol/L (137-145)
[2020-06-19 08:10] LABS: Vancomycin Trough 16.7 ug/mL (10.0-20.0)
[2020-06-19 08:12] LABS: CRP 18.9 mg/dL (<1.0)
[2020-06-19] MEDS: cloNIDine HCL 0.05 MG TABLET PO ×2 (09:50→20:23)
[2020-06-19] MEDS: ASPIRIN 81 MG ENTERIC TABLET PO (09:50)
[2020-06-19] MEDS: amLODIPine BESYLATE 5 MG TABLET PO (09:50)
--- NOTE | 2020-06-19 13:03 | PM.IMPN ---
Progress Note: A&P Assessment and Plan (1) Cellulitis of great toe, left: Code(s): L03.032 - Cellulitis of left toe Status: Acute Assessment and Plan: Left great toe erythematous, edematous with lymphagitic streaking which is improved today -Foot x-ray with no significant findings, -MRI ordered and will likely be done today to evaluate for osteomyelitis -She remains afebrile and she states her tachycardia is chronic -Healing will be complicated d/t vascular disease. Dr. Garcia is on the case -due to possible osteomyelitis, elevated white blood cell count, elevated inflammatory markers, and severe PA D, will ask Dr. choudhary his treatment recommendations -Wound culture reviewed, unsure if it reflects the current infection or is from the normal kitty of the skin. Will continue vanc and imipenem. (2) Diet-controlled type 2 diabetes mellitus: Code(s): E11.9 - Type 2 diabetes mellitus without complications Status: Acute Assessment and Plan: A1c is 5.1. Blood sugars have been well controlled. -continue diabetic diet -Will stop accuchecks (3) Hypokalemia: Code(s): E87.6 - Hypokalemia Status: Acute Assessment and Plan: WNL today -Monitor with daily labs (4) Peripheral arterial disease: Code(s): I73.9 - Peripheral vascular disease, unspecified Status: Acute Assessment and Plan: Severe PAD noted on GUY -patient reports no claudication symptoms in the recent past -she has seen vascular surgery many years ago but has never had any interventions -she quit smoking earlier this year but smoked 40 years prior -aspirin started and simvastatin increased -Continue Dr. Garcia's recommendations (5) Hypertension: Code(s): I10 - Essential (primary) hypertension Status: Inactive Assessment and Plan: Last blood pressure 121/68 -Continue amlodipine and clonidine -Monitor BP closely and adjust medications as needed (6) Hypercholesterolemia: Code(s): E78.00 - Pure hypercholesterolemia, unspecified Status: Inactive Assessment and Plan: -continue simvastatin Dose increased 06/18/20 (7) Sinus tachycardia: Code(s): R00.0 - Tachycardia, unspecified Status: Acute Assessment and Plan: Persistent, mild tachycardia in the 110s. Pt states this is chronic and shes had it forever and it's never caused her probelms . - EKG showed sinus tachycardia. She is asymptomatic. -TSH normal -blood cultures negative -euvolemic Subjective Date/time seen: 06/19/20 13:03 Interval history: Pt is a 70-year-old female here for cellulitis. Patient was seen today and states she is doing okay. She thinks the redness and wound looks better today on her foot. She has not had a bowel movement yet and requested some MiraLax. When asked, she says her heart rate always runs high in that she has been told that by many people. She has never seen a forensic materials engineer for that and it does not bother her. She is eating and drinking okay and denies chest pain, palpitations, nausea, vomiting, fevers or chills. Exam Narrative: Exam Narrative: General: Well developed well nourished patient in NAD HEENT: normocephalic Neck: supple Neuro: Alert and oriented x4 CV: Slightly tachycardic on exam rate 108. No murmurs Resp:CTA Abd: Soft, non distended. No pain to palpation. Positive bowel sounds Extremities: Left great toe with purulent discharge and erythema down the dorsal aspect of the foot. Pulses decreased but there. No calf tenderness or swelling Objective Data Vital Signs Vital Signs: Vital Signs - 24 hr 06/18/20 14:20 06/18/20 17:25 06/18/20 22:00 Temperature 97.7 F 97.5 F L 97.2 F L Pulse Rate 112 H 116 H 119 H Respiratory Rate 18 18 16 Blood Pressure 140/79 127/75 143/85 H Pulse Oximetry 94 95 96 06/19/20 02:00 06/19/20 06:00 06/19/20 08:00 Temperature 97.7 F 97.4 F L 97.5 F L Pulse Rate 116 H 120
--- NOTE | 2020-06-19 13:22 | WPDINFPN2 ---
Progress Note: A&P Assessment and Plan (1) Cellulitis of great toe, left: Code(s): L03.032 - Cellulitis of left toe Status: Acute Assessment and Plan: 1. L 1s toe cellulitis after trauma 2. Gangrene and severe ASPVD 3. DM, well controlled 4. PCN --> rash REC Ancef #1 (antibiotic #5). Subjective Date/time seen: 06/19/20 13:22 Objective Data Vital Signs Vital Signs: Vital Signs - 24 hr 06/18/20 14:20 06/18/20 17:25 06/18/20 22:00 Temperature 36.5 C 36.4 C L 36.2 C L Pulse Rate 112 H 116 H 119 H Respiratory Rate 18 18 16 Blood Pressure 140/79 127/75 143/85 H Pulse Oximetry 94 95 96 06/19/20 02:00 06/19/20 06:00 06/19/20 08:00 Temperature 36.5 C 36.3 C L 36.4 C L Pulse Rate 116 H 120 H 106 H Respiratory Rate 16 16 18 Blood Pressure 136/77 129/68 121/81 Pulse Oximetry 94 98 98 06/19/20 09:59 06/19/20 12:00 Temperature 35.9 C L Pulse Rate 103 H Respiratory Rate 18 18 Blood Pressure 121/68 Pulse Oximetry 98 96 Intake/Output Intake/Output: Intake & Output 06/16/20 06/17/20 06/18/20 06/19/20 23:59 23:59 23:59 23:59 Intake Total 1970 2680 1955 940 Output Total 642 229 6954 1100 Balance 1070 1930 655 -160 Meds/Results Medications: Active Medications Generic Name Dose Route Start Last Admin Trade Name Freq PRN Reason Stop Dose Admin Acetaminophen 650 mg 06/15/20 14:40 Acetaminophen 325 Mg Tablet PO Q4H PRN Mild Pain (1-3) or Fever Hydrocodone Bitart/Acetaminophen 1 tab 06/15/20 14:40 06/18/20 05:20 Hydrocodone/Acetaminophen (*Crx) 5-325 Mg Tablet PO 1 tab Q4H PRN Administration Pain Rated 4-6 Amlodipine Besylate 5 mg 06/16/20 09:00 06/19/20 09:50 Amlodipine Besylate 5 Mg Tablet PO 5 mg DAILY MAK Administration Aspirin 81 mg 06/18/20 09:00 06/19/20 09:50 Aspirin 81 Mg Enteric Tablet PO 81 mg QAM MAK Administration Clonidine HCl 0.05 mg 06/15/20 21:00 06/19/20 09:50 Clonidine Hcl 0.05 Mg Tablet PO 0.05 mg Q12HR MAK Administration Dextrose 12.5 gm 06/17/20 10:42 Dextrose 50% 25 Gm/50 Ml Syringe IV PUSH PRN PRN Hypoglycemia Protocol Gabapentin 100 mg 06/15/20 21:00 06/18/20 20:07 Gabapentin 100 Mg Capsule PO 100 mg HS MAK Administration Glucagon 1 mg 06/17/20 10:42 Glucagon For Inj 1 Mg Vial IM PRN PRN Hypoglycemia Protocol Glucose 15 gm 06/17/20 10:42 Glucose Oral Gel 15 Gm Of Glucse In 37.5 Gm Tube PO PRN PRN Hypoglycemia Protocol Dextrose 1,000 mls @ 100 mls/hr 06/17/20 10:42 Dextrose 5% 1,000 Ml IVPB PRN PRN Hypoglycemia Protocol Sodium Chloride 500 mls @ 75 mls/hr 06/19/20 13:05 Normal Saline Iv IV CONT .Q6H40M MAK Melatonin 5 mg 06/15/20 20:53 Melatonin 5 Mg Tablet PO HS PRN Insomnia Ondansetron HCl 4 mg 06/15/20 14:40 06/19/20 04:26 Ondansetron Inj 4 Mg/2 Ml Vial IV PUSH 4 mg Q4H PRN Administration Nausea Polyethylene Glycol 17 gm 06/19/20 13:04 Polyethylene Glycol 3350 17 Gm Powd.Pack PO QAM PRN Constipation Simvastatin 40 mg 06/18/20 21:00 06/18/20 20:06 Simvastatin 20 Mg Tablet PO 40 mg HS MAK Administration Temazepam 15 mg 06/15/20 21:00 06/18/20 20:06 Temazepam (*Crx) 15 Mg Capsule PO 15 mg HS MAK Administration Radiology Results: ITS Impressions Foot X-Ray 06/15/20 12:23 IMPRESSION: Osteopenia No obvious fracture Hammertoe deformities, which limits evaluation of the toes. If there is concern for specific toe fracture, recommend individual toe radiographs Ankle Brachial Index 06/17/20 14:41 IMPRESSION: 1. Severely decreased ABIs, consistent with arterial occlusive disease. Duplex Scan Lower Extremity Artery 06/19/20 09:40 IMPRESSION: 1. 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 2. 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
[2020-06-19] MEDS: SODIUM CHLORIDE 0.9% IV 1,000 ML 75 ML IV CONT (14:09)
--- NOTE | 2020-06-19 15:32 | PM.PNCARD ---
Progress Note: A&P Assessment and Plan (1) Peripheral arterial disease: Code(s): I73.9 - Peripheral vascular disease, unspecified Status: Acute Assessment and Plan: with h/o partial amputation in 2010 GUY 0.34 (R), 0.36 (L) consistent with severe disease She denies claudications. Erythema, pain and cellulitis appear to improve with abx. Arterial duplex did not mention anything about her bypass graft, apparently she had right-sided fem-pop bypass surgery, which I think is occluded. On the left side she has significant femoral artery stenosis, followed by total occlusion of the SFA. With her not having much claudication I would not recommend any invasive procedure at this time, however long-term she would need to have peripheral angiogram with possible treatment as indicated. On her right side since her graft is occluded, but she is not symptomatic at this time, would manage conservatively with maximum medical treatment for that part. Indefinite she needs to go for amputation, I would worry about the healing process of her stump in view of significant diminished distal flow. I think her left side is going to end up like her right side where she had amputation which did not heal and subsequently she had fem-pop bypass to improve the distal flow. The only thing different this time is there is a potential treatment to her total occluded SFA percutaneously, which I could do, but I do not think would be a good idea to do it at this facility. Will consider arranging for that at a different facility may be later on as an outpatient. (2) Sinus tachycardia: Code(s): R00.0 - Tachycardia, unspecified Status: Acute Assessment and Plan: Chronic per patient, worse now with underlying infection. Will monitor. . (3) Cellulitis of great toe, left: Code(s): L03.032 - Cellulitis of left toe Status: Acute Assessment and Plan: With possible osteomyelitis, she is getting MRI to the left foot tomorrow Subjective Date/time seen: 06/19/20 15:32 She feels slightly better today, still with throbbing pain in the left toe, arterial duplex imaging were reviewed, radiologist's interpretation reviewed by myself, no chest pain no shortness of breath today, no fever Exam Narrative: Exam Narrative: Erythema noted on dorsal aspect of right foot Const: General: no acute distress Eyes: Sclera: sclerae normal Neck: Neck: no JVD Carotids: no bruits Resp: Effort & Inspection: normal respiratory effort Auscultation: clear to auscultation bilaterally Cardio: Rate: regular rate and not tachycardic Rhythm: regular rhythm Heart sounds: no gallops and no rubs Skin: General skin exam: normal color Neuro: Cranial nerves: Yes Normal hearing present Speech: normal speech Extrem: General: no edema and other Other: Amputated right toes, with decreased pulses had anterior tibial posterior tibial and popliteal, good femoral pulse noted on the right side. On the left side good femoral pulse very diminished popliteal, and very diminished and her tibial and posterior tibial. There is skin demarcation with discoloration on the medial aspect of the left foot Psych: Affect: normal affect Objective Data Vital Signs Vital Signs: Vital Signs - 24 hr 06/18/20 17:25 06/18/20 22:00 06/19/20 02:00 Temperature 36.4 C L 36.2 C L 36.5 C Pulse Rate 116 H 119 H 116 H Respiratory Rate 18 16 16 Blood Pressure 127/75 143/85 H 136/77 Pulse Oximetry 95 96 94 06/19/20 06:00 06/19/20 08:00 06/19/20 09:59 Temperature 36.3 C L 36.4 C L Pulse Rate 120 H 106 H Respiratory Rate 16 18 18 Blood Pressure 129/68 121/81 Pulse Oximetry 98 98 98 06/19/20 12:00 Temperature 35.9 C L Pulse Rate 103 H Respiratory Rate 18 Blood Pressure 121/68 Pulse Oximetry 96 Intake/Output Intake/Output: Intake & Output 06/16/20 06/17/20 06/18/20 06/19/20 23:59 23:59 23:59 23:59 Intake Total 19695 1180 Output Total 900 75
--- NOTE | 2020-06-19 17:35 | PC.NURSE ---
To MRI via WC.
--- NOTE | 2020-06-19 18:38 | PC.NURSE ---
Returned from MRI via wheelchair.
--- NOTE | 2020-06-19 19:04 | CONS_ITS ---
DATE OF CONSULTATION: 06/19/2020 REASON FOR CONSULTATION: Cellulitis of the left first toe. HISTORY OF PRESENT ILLNESS: A 70-year-old female, who underwent vascular bypass surgery by Dr. Ramirez at [facility] in 2011. She had a previous TMA. After the bypass, she had 1 additional operation for wound dehiscence medially with exposed bone. She reports this was shaved back a little bit further with wound VAC applied. This healed within another week. She has had no subsequent problems on the right foot. On the left, beginning 3 days before admission, she stubbed her bare toe against an [place] table leg. She had immediate pain, which persisted in terms of soreness described over the next several days. She is unsure if the trauma broke the skin or not, but after applying the dressing, she did notice a scant amount of blood on the dressing in subsequent days. Two days before admission, she noticed a pink discoloration to the toe; 1 day before admission marked toe redness and on the day of admission, redness extending up the medial aspect of the foot. She then presented to emergency room. Here, she has been on imipenem and vancomycin. Consultation requested. On exam today, she has black discoloration of the superficial skin distally. She is unaware of when that discoloration began. She has had no fever, chills, sweats, recent antibiotics, recent immunosuppressants, past major trauma to the left lower extremity, past surgery, or known vascular compromise to the left leg. ALLERGIES: PENICILLIN CAUSED A RASH. OTHERS NOT PERTINENT. HABITS: Quit smoking earlier this year, 7 drinks per week. PRESENT MEDICATIONS: List reviewed. No immunosuppressants. PAST MEDICAL HISTORY: In addition to the above tonsillectomy, , hypertension, hyperlipidemia, GERD, and diet-controlled diabetes mellitus. Her most recent A1c was about 5.3%. REVIEW OF SYSTEMS: 14-point review otherwise negative. FAMILY HISTORY: Not pertinent to present illness. SOCIAL HISTORY: She recently moved back here from [place] where she lived for the last 7 years since her vascular bypass. No family at the bedside. She has a son locally. PHYSICAL EXAMINATION: GENERAL: This is an elderly female, who appears her actual age. No acute distress. VITAL SIGNS: Afebrile since arrival, 121/68, 103, 18, 96% on room air. SKIN: Warm and dry. No generalized rashes. No pustules. Conjunctivae are normal. Pupils equal, round, reactive. Oropharynx and oral mucosa normal. EXTREMITIES: No clubbing, cyanosis, edema. On the right, she has a well-healed TMA wound. On the left, she has superficial gangrene of the skin on the left toe, especially on the medial aspect. The patient has erythema of the toe elsewhere and also mild erythema extending into the medial distal foot and marker has been applied into the mid foot and the erythema does not extend past the markings. NEUROLOGIC: Normal light touch sensation. Normal musculature of the foot and toes. LABORATORY DATA: A wound culture obtained externally has grown oxacillin susceptible Staph aureus. She has hyponatremia 129, glucose 134. Hemoglobin A1c on admission was 5.1%. Remainder of chemistry panel is normal. CRP is 19 down from 23. Vancomycin trough therapeutic. Her white count 14.9, was 12.5 on arrival, hemoglobin 11.8, platelets are 375. Differential is unremarkable. Blood cultures are no growth after 4 days incubation. RADIOLOGY: Arterial duplex Dopplers show occlusion of the bilateral superficial femorals with reconstitution, fusiform aneurysm of right common femoral, and on left side increased pressure gradients suggestive of [id number] stenosis. ASSESSMENT: 1. Diabetes mellitus, well controlled on diet. 2. Hyper
[2020-06-19] MEDS: SIMVASTATIN 20 MG TABLET 40 MG PO (20:22)
[2020-06-19] MEDS: GABAPENTIN 100 MG CAPSULE PO (20:23)
[2020-06-19] MEDS: TEMAZEPAM (*CRX) 15 MG CAPSULE PO (20:23)
[2020-06-19] MEDS: HYDROcodone/acetaminophen (*CRX) 5-325 MG TABLET 1 TAB PO (23:18)
[2020-06-20] VITALS (7 sets, daily range): BP systolic 112–145; BP diastolic 65–90; PULSE 88–119; RESP 16–18; TEMP 36–36.6; O2SAT 90–97
[2020-06-20 05:43] LABS: Hematocrit 33.2 % (37.0-47.0); Hemoglobin 11.2 g/dL (12.0-15.0); Mean Corpuscular HGB Conc 33.7 g/dl (32-36); Mean Corpuscular Hemoglobin 30.4 pg (26-34); Mean Corpuscular Volume 90.2 fl (80-100); Mean Platelet Volume 8.6 fl (7.4-10.4); Platelet Count Result 348 k/mm3 (150-375); Red Blood Count 3.68 M/mm3 (4.2-5.4); Red Cell Distribution Width 12.4 % (11.5-14.5)
[2020-06-20 06:19] LABS: Alanine Aminotransferase 14 U/L (4-35); Albumin Level 3.1 g/dL (3.5-5.1); Alkaline Phosphatase 116 U/L (38-126); Anion Gap 3 mmol/L (8-16); Aspartate Amino Transferase 24 U/L (14-36); Bilirubin,Total 0.4 mg/dL (0.2-1.3); Blood Urea Nitrogen 20 mg/dL (7-17); CRP 8.1 mg/dL (<1.0); Calcium 8.8 mg/dL (8.4-10.2); Carbon Dioxide 31 mmol/L (22-30); Chloride 99 mmol/L (98-107); Estimated CRCL calculation 59 ml/min; Estimated Glomerular Filt Rate > 60; Glucose 96 mg/dL (65-105); Sodium 133 mmol/L (137-145)
[2020-06-20 06:21] LABS: Potassium 3.6 mmol/L (3.4-5.0)
[2020-06-20] MEDS: cloNIDine HCL 0.05 MG TABLET PO ×2 (08:53→20:36)
[2020-06-20] MEDS: ASPIRIN 81 MG ENTERIC TABLET PO (08:53)
[2020-06-20] MEDS: amLODIPine BESYLATE 5 MG TABLET PO (08:53)
[2020-06-20] MEDS: SODIUM CHLORIDE 0.9% IV 1,000 ML 75 ML IV CONT ×2 (08:55→22:04)
--- NOTE | 2020-06-20 11:53 | WPDINFPN2 ---
Progress Note: A&P Assessment and Plan (1) Cellulitis of great toe, left: Code(s): L03.032 - Cellulitis of left toe Status: Acute Assessment and Plan: 1. L 1st toe cellulitis after trauma, due to OBED. Stable to improved status 2. Gangrene and severe ASPVD. MRI noted, I think periostitis is more likely than osteomyelitis. 3. DM, well controlled 4. PCN --> rash REC Ancef #2 (antibiotic #6). Redo CRP, oral therapy in next 1-2 days depending on progress. See Dr. Ramirez in office for any needed surgical intervention. Subjective Date/time seen: 06/20/20 11:53 Interval history: no new complaints Exam Narrative: Exam Narrative: afebrile Const: General: no acute distress Resp: Effort & Inspection: normal respiratory effort Auscultation: clear to auscultation bilaterally Cardio: Rate: regular rate Rhythm: regular rhythm Heart sounds: no murmurs Other: DP pulse not palpable, PT pulse not palpable GI: Inspection: non-distended GI Palp: Yes Soft to palpation and No Tenderness to palpation present (GI) Skin: General skin exam: normal color and no rashes or lesions noted Extrem: Other: L foot with less intense erythema. No extension of erythema, no edema. Toe dressed, no drainage. Non tender Objective Data Vital Signs Vital Signs: Vital Signs - 24 hr 06/19/20 12:00 06/19/20 16:00 06/19/20 21:42 Temperature 35.9 C L 36.6 C 36.3 C L Pulse Rate 103 H 106 H 113 H Respiratory Rate 18 20 16 Blood Pressure 121/68 103/66 133/71 Pulse Oximetry 96 95 97 06/20/20 02:00 06/20/20 05:58 06/20/20 08:00 Temperature 36.0 C L 36.1 C L 36.5 C Pulse Rate 88 93 92 Respiratory Rate 16 16 18 Blood Pressure 112/69 121/66 127/65 Pulse Oximetry 96 97 97 06/20/20 08:55 Temperature Pulse Rate Respiratory Rate 18 Blood Pressure Pulse Oximetry 97 Intake/Output Intake/Output: Intake & Output 06/17/20 06/18/20 06/19/20 06/20/20 23:59 23:59 23:59 23:59 Intake Total 2680 1955 2070 1590 Output Total 750 1300 1750 500 Balance 1930 529 852 3355 Meds/Results Medications: Active Medications Generic Name Dose Route Start Last Admin Trade Name Freq PRN Reason Stop Dose Admin Acetaminophen 650 mg 06/15/20 14:40 Acetaminophen 325 Mg Tablet PO Q4H PRN Mild Pain (1-3) or Fever Hydrocodone Bitart/Acetaminophen 1 tab 06/15/20 14:40 06/19/20 23:18 Hydrocodone/Acetaminophen (*Crx) 5-325 Mg Tablet PO 1 tab Q4H PRN Administration Pain Rated 4-6 Amlodipine Besylate 5 mg 06/16/20 09:00 06/20/20 08:53 Amlodipine Besylate 5 Mg Tablet PO 5 mg DAILY MAK Administration Aspirin 81 mg 06/18/20 09:00 06/20/20 08:53 Aspirin 81 Mg Enteric Tablet PO 81 mg QAM MAK Administration Clonidine HCl 0.05 mg 06/15/20 21:00 06/20/20 08:53 Clonidine Hcl 0.05 Mg Tablet PO 0.05 mg Q12HR AMK Administration Dextrose 12.5 gm 06/17/20 10:42 Dextrose 50% 25 Gm/50 Ml Syringe IV PUSH PRN PRN Hypoglycemia Protocol Gabapentin 100 mg 06/15/20 21:00 06/19/20 20:23 Gabapentin 100 Mg Capsule PO 100 mg HS MAK Administration Glucagon 1 mg 06/17/20 10:42 Glucagon For Inj 1 Mg Vial IM PRN PRN Hypoglycemia Protocol Glucose 15 gm 06/17/20 10:42 Glucose Oral Gel 15 Gm Of Glucse In 37.5 Gm Tube PO PRN PRN Hypoglycemia Protocol Dextrose 1,000 mls @ 100 mls/hr 06/17/20 10:42 Dextrose 5% 1,000 Ml IVPB PRN PRN Hypoglycemia Protocol Cefazolin Sodium 1 gm in 50 mls @ 100 mls/hr 06/19/20 14:00 06/20/20 06:19 Ancef 1 Gm/D5w 50 Ml Pm IVPB Infused Q8HR MAK Infusion Sodium Chloride 1,000 mls @ 75 mls/hr 06/19/20 14:05 06/20/20 08:55 Normal Saline Iv IV CONT 75 mls/hr .[id number] MAK Administration Melatonin 5 mg 06/15/20 20:53 Melatonin 5 Mg Tablet PO HS PRN Insomnia Ondansetron HCl 4 mg 06/15/20 14:40 06/19/20 04:26 Ondansetron Inj 4 Mg/2 Ml Vial IV PUSH
--- NOTE | 2020-06-20 14:48 | PM.CNGS ---
Assessment and Plan Assessment and plan (1) Cellulitis of great toe, left: Code(s): L03.032 - Cellulitis of left toe Status: Acute Assessment and Plan: The patient has cellulitis of the left foot and great toe with two wounds of the great toe. The appearance of the wounds on her left great toe have changed over the past few days and she has now developed an abscess that is draining in the area of the toenail and the more proximal wound. On my exam, I was able to probe to bone and there was a purulent fluid collection both anterior and posterior to the proximal first phalanx that was probed and drained from the open wound. This seems to be a change, even from yesterday according to the wound care nurses and looking at previous notes in her EMR. The great toe will likelyl eventually need surgical intervention, but due to her peripheral arterial disease, she would benefit from vascular surgery consultation prior to proceeding. We would currently recommend to continue antibiotics per ID recommendations and local wound care. We will start with using silver gel and packing the opening that tracks down the toe with 1/4 iodoform to allow this wound to continue to drain. This should be changed daily and will require her to have home health or assistance at home with dressing changes until seen by vascular surgery. She then could be evaluated by Dr. Ramirez at [place], hopefully next week, as an outpatient to decipher further plan of care. Thank you for allowing us to see the patient in consulatation and we will continue to follow along with you while she is an inpatient here. (2) Ulcer of left foot: Code(s): L97.529 - Non-pressure chronic ulcer of other part of left foot with unspecified severity Status: Acute Assessment and Plan: See plan above. (3) Peripheral arterial disease: Code(s): I73.9 - Peripheral vascular disease, unspecified Status: Acute Assessment and Plan: The patient sees a vascular surgeon at [place], Dr. Ramirez. She has severe peripheral arterial disease as evidenced by her arterial studies. This complicates her wound healing and ultimately may need to be addressed prior to surgical intervention. See plan above. (4) Diet-controlled type 2 diabetes mellitus: Code(s): E11.9 - Type 2 diabetes mellitus without complications Status: Acute Assessment and Plan: Diet-controlled. Recommend tight glucose control while dealing with this infection and wound healing. Management per Hospitalist. (5) History of tobacco abuse: Code(s): Z87.891 - Personal history of nicotine dependence Status: Acute Additional Plan Discussed the patient's case and formulated her plan of care with Dr. Hamilton. History of Present Illness Consult details Consult date: 06/20/20 Reason for consult: other (Left foot cellulitis and wound with concern for abscess and osteomyelitis) Requesting physician: Starr Webster PA-C Narrative: This is a 70-year-old female with a history of hypertension, hyperlipidemia, peripheral arterial disease, diet-controlled diabetes mellitus type 2, and previous tobacco abuse, who presented to the emergency department on 06/15/20 with complaints of swelling and redness of the left foot and great toe. The patient apparently hit her left great toe on the leg of an oak table last Friday, now 8 days ago. She had not noticed any abnormalities of the toe initially, but the following day noticed redness. The day prior to her admission, she noticed redness and swelling of the great toe. Then, the day she presented to the hospital, she had noticed redness extending up the midfoot and was concerned. She is unsure if there was a wound or broken skin prior to admission. In the ER, a left foot x-ray showed no evidence of fracture or osteomyelitis. She was found to have cellulitis of the left great toe/foot and a left great toe wound. The patient was admitted to the Hospitalist
[2020-06-20] MEDS: HYDROcodone/acetaminophen (*CRX) 5-325 MG TABLET 1 TAB PO ×2 (15:49→22:01)
[2020-06-20] MEDS: SILVERGEL (ELTA) 45 ML 1 APPLIC TOPICAL (15:50)
--- NOTE | 2020-06-20 16:36 | PM.IMPN ---
Progress Note: A&P Assessment and Plan (1) Cellulitis of great toe, left: Code(s): L03.032 - Cellulitis of left toe Status: Acute Assessment and Plan: The pt presented with concern for left foot cellulitis. She reported a traumatic injury 4 days prior when she stubbed her left toe on an oak table leg. She subsequently noticed erythema and edema at the dorsum of the foot. MRI was performed and does show concern for osteomyelitis. The wound has developed duskiness of the superficial skin distally and there was probable bone on exam by general surgery today with fluctuance and drainable purulent fluid which was a significant change from prior exams. Preliminary wound culture shows oxacillin-sensitive staphylococcus aureus. Deep culture was obtained by general surgery today with preliminary results demonstrating gram positive cocci. Infectious disease is following and recommends IV ancef. She has severe peripheral arterial disease and follows with Dr. Ramirez at [facility]. She will require revascularization and possible surgical intervention and will need to see Dr. Ramirez within 1 week. I will try to reach out to their office tomorrow. Continue supportive care with dressing changes per general surgery recommendations, analgesics as needed, and IV ancef. (2) Diet-controlled type 2 diabetes mellitus: Code(s): E11.9 - Type 2 diabetes mellitus without complications Status: Acute Assessment and Plan: A1c is 5.1. Blood sugars have been well controlled. Continue diabetic diet. (3) Hypokalemia: Code(s): E87.6 - Hypokalemia Status: Acute Assessment and Plan: Potassium is normal at 3.6. Continue to monitor. (4) Peripheral arterial disease: Code(s): I73.9 - Peripheral vascular disease, unspecified Status: Acute Assessment and Plan: Severe PAD noted on GUY with right GUY 0.34 and left GUY 0.29. She has a left foot wound with left HYPERTRICHOLOGIST stenosis and total occlusion of the mid left SFA. She reports no claudication symptoms in the recent past. She does not have rest pain. She follows with Dr. Ramirez from [facility]. She has a prior 30 pack-year smoking hx but no longer smokes. ASA was initiated and high-intensity statin will be started for tonight. Cardiology was consulted and input is appreciated. She will need to follow-up with Dr. Ramirez as she will need revascularization given tissue loss in the setting of severe PAD and possible amputation as well given concern for osteomyelitis. (5) Hypertension: Code(s): I10 - Essential (primary) hypertension Status: Inactive Assessment and Plan: Blood pressures are well-controlled. Most recent BP was 130/68. Continue amlodipine and clonidine. Continue to monitor and adjust treatment as indicated. (6) Hypercholesterolemia: Code(s): E78.00 - Pure hypercholesterolemia, unspecified Status: Inactive Assessment and Plan: Will start high-intensity statin with atorvastatin 40mg given advance PAD. Check lipid panel. (7) Sinus tachycardia: Code(s): R00.0 - Tachycardia, unspecified Status: Acute Assessment and Plan: Persistent. Cardiology is following. Pt states this is chronic and shes had it forever and it's never caused her problems . EKG showed sinus tachycardia. She is asymptomatic. TSH is normal, blood cultures are negative, and she is euvolemic. Continue to monitor. Subjective Date/time seen: 06/20/20 16:36 Mrs. Valadez is a 70 y.o. female with PMH significant for peripheral arterial disease and established with Dr. Ramirez at [facility], hypertension, neuropathy, and hyperlipidemia who is seen in follow-up for left first toe wound with concern for osteomyelitis. The pt reports that she is doing well overall and she is eager to go home. She does think that her erythema and swelling are improving. The wound however looks worse today and she had purulent fluid collection which
[2020-06-20] MEDS: ATORVASTATIN 40 MG TABLET PO (20:36)
[2020-06-20] MEDS: TEMAZEPAM (*CRX) 15 MG CAPSULE PO (20:36)
[2020-06-20] MEDS: ENOXAPARIN 40 MG/0.4 ML SYRINGE SUB-Q (20:37)
[2020-06-20] MEDS: GABAPENTIN 100 MG CAPSULE PO (20:37)
[2020-06-21 05:39] VITALS: BP 132/72; PULSE 96; RESP 16; TEMP 36.4; O2SAT 95
[2020-06-21 05:48] LABS: Basophils Absolute Auto 0.1 K/mm3 (0.0-0.1); Basophils Percent Auto 0.8 % (0.2-1.2); Eosinophils Absolute Auto 0.1 K/mm3 (0-0.3); Eosinophils Percent Auto 1.4 % (0-4.4); Hemoglobin 10.7 g/dL (12.0-15.0); Immature Granulocyte Absolute 0.15 K/mm3 (0.00-0.031); Immature Granulocyte Percent A 1.7 % (0-0.5); Lymphocytes Absolute Auto 1.06 K/mm3 (0.9-3.2); Lymphocytes Percent Auto 11.7 % (18.3-44.2); Mean Corpuscular HGB Conc 33.4 g/dl (32-36); Mean Corpuscular Hemoglobin 29.8 pg (26-34); Mean Corpuscular Volume 89.1 fl (80-100); Mean Platelet Volume 8.3 fl (7.4-10.4); Monocytes Absolute Auto 0.8 K/mm3 (0.1-0.6); Monocytes Percent Auto 8.6 % (2.6-8.5); Neutrophils Absolute Auto 6.9 K/mm3 (1.3-6.7); Neutrophils Percent Auto 75.8 % (45.5-73.1); Platelet Count Result 382 k/mm3 (150-375); Red Blood Count 3.59 M/mm3 (4.2-5.4); Red Cell Distribution Width 12.3 % (11.5-14.5); White Blood Count 9.1 K/mm3 (4.5-10.0)
[2020-06-21 06:07] LABS: Alanine Aminotransferase 9 U/L (4-35); Albumin Level 3.1 g/dL (3.5-5.1); Alkaline Phosphatase 123 U/L (38-126); Anion Gap 3 mmol/L (8-16); Aspartate Amino Transferase 21 U/L (14-36); Bilirubin,Total 0.4 mg/dL (0.2-1.3); Blood Urea Nitrogen 17 mg/dL (7-17); CRP 7.2 mg/dL (<1.0); Calcium 8.6 mg/dL (8.4-10.2); Carbon Dioxide 31 mmol/L (22-30); Chloride 100 mmol/L (98-107); Cholesterol 130 mg/dL (0-200); Estimated CRCL calculation 67 ml/min; Estimated Glomerular Filt Rate > 60; Glucose 97 mg/dL (65-105); HDL Direct 34 mg/dL; Magnesium 1.5 mg/dL (1.6-2.3); Potassium 3.4 mmol/L (3.4-5.0); Sodium 134 mmol/L (137-145); Triglycerides 168 mg/dL (<150)
[2020-06-21 06:31] LABS: LDL Cholesterol Direct 66 mg/dL
[2020-06-21] MEDS: HYDROcodone/acetaminophen (*CRX) 5-325 MG TABLET 1 TAB PO ×2 (08:43→19:33)
[2020-06-21] MEDS: SILVERGEL (ELTA) 45 ML 1 APPLIC TOPICAL (08:44)
[2020-06-21] MEDS: cloNIDine HCL 0.05 MG TABLET PO ×2 (08:44→20:39)
[2020-06-21] MEDS: amLODIPine BESYLATE 5 MG TABLET PO (08:44)
[2020-06-21] MEDS: ASPIRIN 81 MG ENTERIC TABLET PO (08:44)
--- NOTE | 2020-06-21 09:31 | PM.PNCARD ---
Progress Note: A&P Assessment and Plan (1) Peripheral arterial disease: Code(s): I73.9 - Peripheral vascular disease, unspecified Status: Acute Assessment and Plan: with h/o partial right foot amputation in 2010 Now with ulcer on left toe s/p debridement GUY 0.34 (R), 0.36 (L) consistent with severe disease Duplex showed Total occluded SFA on the left side, will consider angiogram/intervention in outpatient settings . (2) Sinus tachycardia: Code(s): R00.0 - Tachycardia, unspecified Status: Acute Assessment and Plan: Chronic per patient, worse now with underlying infection. Will monitor. . (3) Cellulitis of great toe, left: Code(s): L03.032 - Cellulitis of left toe Status: Acute Assessment and Plan: With osteomyelitis per MRI. S/p debridement. Abx per primary team Subjective Date/time seen: 06/21/20 09:31 She underwent debridement yesterday. Denies pain right now but states her foot hurt some at night. Review of Systems Review of Systems: All systems reviewed & are unremarkable except as noted in HPI and below Constitutional: Constitutional: Denies fatigue and Denies headache(s) Eyes: Eyes: Denies blurry vision ENT: Reports Normal hearing present and Denies headache(s) Cardiovascular: Cardiovascular: Denies chest pain, Denies diaphoresis, Denies pedal edema, Denies leg edema, Denies lightheadedness, Denies palpitations and Denies dyspnea Respiratory: Respiratory: Denies cough and Denies dyspnea Gastrointestinal: Gastrointestinal: Denies abdominal pain Musculoskeletal: Musculoskeletal: Denies back pain Neurologic: Reports Normal hearing present and Denies headache(s) Psychiatric: Psychiatric: Denies anxiety Endocrine: Endocrine: Denies fatigue and Denies palpitations Exam Narrative: Exam Narrative: Erythema noted on dorsal aspect of right foot Const: General: no acute distress Eyes: Sclera: sclerae normal Neck: Neck: no JVD Carotids: no bruits Resp: Effort & Inspection: normal respiratory effort Auscultation: clear to auscultation bilaterally Cardio: Rate: regular rate and not tachycardic Rhythm: regular rhythm Heart sounds: no gallops and no rubs Skin: General skin exam: normal color Neuro: Cranial nerves: Yes Normal hearing present Speech: normal speech Extrem: General: no edema and other Other: Amputated right toes, with decreased pulses had anterior tibial posterior tibial and popliteal, good femoral pulse noted on the right side. On the left side good femoral pulse very diminished popliteal, and very diminished and her tibial and posterior tibial. There is skin demarcation with discoloration on the medial aspect of the left foot Psych: Affect: normal affect Objective Data Vital Signs Vital Signs: Vital Signs - 24 hr 06/20/20 12:00 06/20/20 16:00 06/20/20 21:42 Temperature 36.6 C 36.3 C L 36.3 C L Pulse Rate 101 H 107 H 119 H Respiratory Rate 18 18 16 Blood Pressure 124/65 130/68 145/90 H Pulse Oximetry 94 90 95 06/21/20 05:39 Temperature 36.4 C Pulse Rate 96 Respiratory Rate 16 Blood Pressure 132/72 Pulse Oximetry 95 Intake/Output Intake/Output: Intake & Output 06/18/20 06/19/20 06/20/20 06/21/20 23:59 23:59 23:59 23:59 Intake Total 1955 2070 3470 360 Output Total 1300 1750 1500 500 Balance 035 074 0726 -140 Meds/Results Medications: Active Medications Generic Name Dose Route Start Last Admin Trade Name Freq PRN Reason Stop Dose Admin Acetaminophen 650 mg 06/15/20 14:40 Acetaminophen 325 Mg Tablet PO Q4H PRN Mild Pain (1-3) or Fever Hydrocodone Bitart/Acetaminophen 1 tab 06/15/20 14:40 06/21/20 08:43 Hydrocodone/Acetaminophen (*Crx) 5-325 Mg Tablet PO 1 tab Q4H PRN Administration Pain Rated 4-6 Amlodipine Besylate 5 mg 06/16/20 09:00 06/21/20 08:44 Amlodipine Besylate 5 Mg Tablet PO 5 mg DAILY MAK Administration Aspirin 81 mg
[2020-06-21 10:00] VITALS: BP 123/63; PULSE 95; RESP 14; TEMP 36.4; O2SAT 97
[2020-06-21] MEDS: MAGNESIUM OXIDE 400 MG TABLET PO (11:23)
[2020-06-21 14:00] VITALS: BP 120/59; PULSE 105; RESP 16; TEMP 36.8; O2SAT 95
--- NOTE | 2020-06-21 14:07 | WPDINFPN2 ---
Progress Note: A&P Assessment and Plan (1) Cellulitis of great toe, left: Code(s): L03.032 - Cellulitis of left toe Status: Acute Assessment and Plan: 1. L 1st toe cellulitis after trauma, due to OBED. Now has a sinus tract in area of dorsal IP joint, and exam and course are concerning for acute osteomyelitis 2. Gangrene and severe ASPVD. 3. DM, well controlled 4. PCN --> rash REC Ancef #3 (antibiotic #7), continue. Unless exam and CRP improve in another 24 hours, I think she will need IV therapy until seen at [facility] by Dr. Ramirez's replacement (he is now retired). Subjective Date/time seen: 06/21/20 14:07 Interval history: events noted Exam Narrative: Exam Narrative: afebrile Const: General: no acute distress Resp: Auscultation: clear to auscultation bilaterally Cardio: Rate: regular rate Rhythm: regular rhythm Heart sounds: no murmurs GI: Inspection: non-distended GI Palp: Yes Soft to palpation and No Tenderness to palpation present (GI) Skin: General skin exam: normal color and no rashes or lesions noted Extrem: Other: left 1st toe still erythema, sinus tract. Erythema over foot, also edema, both are better. Non tender. At present, no expressible pus Objective Data Vital Signs Vital Signs: Vital Signs - 24 hr 06/20/20 16:00 06/20/20 21:42 06/21/20 05:39 Temperature 36.3 C L 36.3 C L 36.4 C Pulse Rate 107 H 119 H 96 Respiratory Rate 18 16 16 Blood Pressure 130/68 145/90 H 132/72 Pulse Oximetry 90 95 95 06/21/20 10:00 Temperature 36.4 C Pulse Rate 95 Respiratory Rate 14 Blood Pressure 123/63 Pulse Oximetry 97 Intake/Output Intake/Output: Intake & Output 06/18/20 06/19/20 06/20/20 06/21/20 23:59 23:59 23:59 23:59 Intake Total 19540 3470 360 Output Total 1300 1750 1500 500 Balance 425 878 8775 -140 Meds/Results Medications: Active Medications Generic Name Dose Route Start Last Admin Trade Name Freq PRN Reason Stop Dose Admin Acetaminophen 650 mg 06/15/20 14:40 Acetaminophen 325 Mg Tablet PO Q4H PRN Mild Pain (1-3) or Fever Hydrocodone Bitart/Acetaminophen 1 tab 06/15/20 14:40 06/21/20 08:43 Hydrocodone/Acetaminophen (*Crx) 5-325 Mg Tablet PO 1 tab Q4H PRN Administration Pain Rated 4-6 Amlodipine Besylate 5 mg 06/16/20 09:00 06/21/20 08:44 Amlodipine Besylate 5 Mg Tablet PO 5 mg DAILY MAK Administration Aspirin 81 mg 06/18/20 09:00 06/21/20 08:44 Aspirin 81 Mg Enteric Tablet PO 81 mg QAM MAK Administration Atorvastatin Calcium 40 mg 06/20/20 21:00 06/20/20 20:36 Atorvastatin 40 Mg Tablet PO 40 mg HS MAK Administration Clonidine HCl 0.05 mg 06/15/20 21:00 06/21/20 08:44 Clonidine Hcl 0.05 Mg Tablet PO 0.05 mg Q12HR MAK Administration Dextrose 12.5 gm 06/17/20 10:42 Dextrose 50% 25 Gm/50 Ml Syringe IV PUSH PRN PRN Hypoglycemia Protocol Enoxaparin Sodium 40 mg 06/20/20 21:00 06/20/20 20:37 Enoxaparin 40 Mg/0.4 Ml Syringe SUB-Q 40 mg HS MAK Administration Gabapentin 100 mg 06/15/20 21:00 06/20/20 20:37 Gabapentin 100 Mg Capsule PO 100 mg HS MAK Administration Glucagon 1 mg 06/17/20 10:42 Glucagon For Inj 1 Mg Vial IM PRN PRN Hypoglycemia Protocol Glucose 15 gm 06/17/20 10:42 Glucose Oral Gel 15 Gm Of Glucse In 37.5 Gm Tube PO PRN PRN Hypoglycemia Protocol Dextrose 1,000 mls @ 100 mls/hr 06/17/20 10:42 Dextrose 5% 1,000 Ml IVPB PRN PRN Hypoglycemia Protocol Cefazolin Sodium 1 gm in 50 mls @ 100 mls/hr 06/19/20 14:00 06/21/20 13:47 Ancef 1 Gm/D5w 50 Ml Pm IVPB 100 mls/hr Q8HR MAK Administration Sodium Chloride 1,000 mls @ 75 mls/hr 06/19/20 14:05 06/20/20 22:04 Normal Saline Iv IV CONT 75 mls/hr .[id number] MAK Administration Magnesium Oxide 400 mg 06/21/20 09:00 06/21/20 11:23 Magnesium Oxide 400 Mg Tablet PO 400 mg QAM MAK Administration Me
--- NOTE | 2020-06-21 15:15 | PM.IMPN ---
Progress Note: A&P Assessment and Plan (1) Cellulitis of great toe, left: Code(s): L03.032 - Cellulitis of left toe Status: Acute Assessment and Plan: The pt presented with concern for left foot cellulitis. She reported a traumatic injury 4 days prior when she stubbed her left toe on an oak table leg. She subsequently noticed erythema and edema at the dorsum of the foot. MRI was performed and does show concern for osteomyelitis. The wound has developed duskiness of the superficial skin distally and there was probable bone on exam by general surgery 06/20 with fluctuance and drainable purulent fluid which was a significant change from prior exams. Initial wound culture shows oxacillin-sensitive staphylococcus aureus. Deep culture was obtained by general surgery 06/20 with preliminary results demonstrating gram positive cocci. Infectious disease is following and recommends IV ancef which she will likely need until she is seen by vascular surgery given severe PAD. She will require likely revascularization and possible surgical intervention. I have reached out to vascular surgery restrictive preparation operator at [place] for further recommendations. Continue supportive care with dressing changes per general surgery recommendations, analgesics as needed, and IV ancef. WBC has normalized and she is afebrile. Blood cultures are negative. (2) Diet-controlled type 2 diabetes mellitus: Code(s): E11.9 - Type 2 diabetes mellitus without complications Status: Acute Assessment and Plan: A1c is 5.1. Fasting blood sugars have been well controlled. Continue diabetic diet. (3) Hypokalemia: Code(s): E87.6 - Hypokalemia Status: Chronic Assessment and Plan: Resolved. Continue to monitor. (4) Peripheral arterial disease: Code(s): I73.9 - Peripheral vascular disease, unspecified Status: Acute Assessment and Plan: Severe PAD noted on GUY with right GUY 0.34 and left GUY 0.36. She has a left foot wound with left PROSTHETIC AIDE stenosis and total occlusion of the mid left SFA. She reports no claudication symptoms in the recent past. She does not have rest pain. She follows with Dr. Ramirez from [facility] who has retired. She has a prior 30 pack-year smoking hx but no longer smokes. ASA and high-intensity statin were initiated. Cardiology was consulted and input is appreciated. She will need to follow-up with vascular surgery as she will need revascularization given tissue loss in the setting of severe PAD and possible amputation as well given concern for osteomyelitis. (5) Hypertension: Code(s): I10 - Essential (primary) hypertension Status: Inactive Assessment and Plan: Blood pressures are well-controlled. Most recent BP was 120/59. Continue amlodipine and clonidine. Continue to monitor and adjust treatment as indicated. (6) Hypercholesterolemia: Code(s): E78.00 - Pure hypercholesterolemia, unspecified Status: Inactive Assessment and Plan: Continue high-intensity statin with atorvastatin 40mg given advance PAD. LDL is 66 and HDL is 34. (7) Sinus tachycardia: Code(s): R00.0 - Tachycardia, unspecified Status: Acute Assessment and Plan: Persistent. Cardiology is following. Pt states this is chronic and shes had it forever and it's never caused her problems . EKG showed sinus tachycardia. She is asymptomatic. TSH is normal, blood cultures are negative, and she is euvolemic. Continue to monitor. Additional Plan Order venous doppler US to r/o DVT of LLE given periankle edema. Subjective Date/time seen: 06/21/20 15:15 Mrs. Valadez is a 70 y.o. female with PMH significant for peripheral arterial disease and established with Dr. Ramirez at [facility] who has retired, hypertension, neuropathy, and hyperlipidemia who is seen in follow-up for left first toe wound cellulitis and acute osteomyelitis. No acute events reported overnight. She feels well and is
--- NOTE | 2020-06-21 15:15 | PM.PNGS ---
Progress Note: A&P Assessment and Plan (1) Cellulitis of great toe, left: Code(s): L03.032 - Cellulitis of left toe Status: Acute Assessment and Plan: WBC count remains normal today, she is afebrile, and overall cellulitis of the left foot has improved since admission, but her exam of the left great toe has worsened over the past 48 hours. There is some concern for osteomyelitis, given her exam and MRI results. Initial wound culture showed growth of OBED, currently on cefazolin IV. ID following and recommendations noted. A second wound culture was taken by Dr. Hamilton yesterday of the purulent fluid collection deeper in the great toe. Will await those results. We would still recommend the patient be evaluated by vascular surgery prior to any surgical intervention for the left foot wound/infection due to her severe peripheral arterial disease. For now, continue antibiotics per ID's recommendations and continue local wound care with packing 1/4 iodoform gauze in the distal open wound and change packing daily, until she is able to follow-up with vascular surgery. (2) Ulcer of left foot: Code(s): L97.529 - Non-pressure chronic ulcer of other part of left foot with unspecified severity Status: Acute Assessment and Plan: See plan above. (3) Peripheral arterial disease: Code(s): I73.9 - Peripheral vascular disease, unspecified Status: Acute Assessment and Plan: Dr. Ramirez (the vascular surgeon who followed her previously) has since retired. The patient wishes to establish care with a new vascular surgeon at [place]. Discussed this with the Hospitalist. (4) Diet-controlled type 2 diabetes mellitus: Code(s): E11.9 - Type 2 diabetes mellitus without complications Status: Acute Assessment and Plan: Diet-controlled. Recommend tight glucose control while dealing with this infection and wound healing. Management per Hospitalist. (5) History of tobacco abuse: Code(s): Z87.891 - Personal history of nicotine dependence Status: Acute Additional Plan Discussed the patient's case and formulated her plan of care with Dr. Hamilton. Subjective Subjective Date/Time Seen: 06/21/20 15:15 Patient reports: no new complaints and pain is less Interval history: Patient seen this afternoon and she has no new complaints. She feels her pain in the great toe has actually improved some. She also had a family member reach out to Dr. Ramirez's office (vascular surgeon at [place]) and found out he retired, but she gathered information for contacting the vascular surgery office at [place]. Review of Systems Review of Systems: All systems reviewed & are unremarkable except as noted in HPI and below Constitutional: Constitutional: Reports as per HPI, Reports no additional constitutional complaints, Denies chills and Denies fever(s) Exam Const: General: no acute distress, alert and awake Orientation/consciousness: patient oriented x3 Skin: General skin exam: normal color Wounds: wounds noted (see below) Extrem: General: no calf tenderness Other: Erythema of the left foot and great toe look about the same today with no mottling of the great toe. The open wound on the left great toe that is more distal still has some soft necrotic tissue, but very minimal purulent drainage expressed and now there is development of a hard eschar over part of the wound. The more proximal wound on the left great toe appears about the same as yesterday. Still able to probe bone with tunneling down the toe. I applied silver gel and packed the distal wound with 1/4 iodoform gauze and applied gauze and kerlex over the top. Left foot with full ROM, decreased sensation of the toes. Left foot - Unable to palpate DP or PT pulses, able to doppler a DP pulse. Right TMA. Psych: Appearance: grossly normal Mental Status: mental status grossly normal Speech and movement: Normal speech and movement present Affect: bart
[2020-06-21] MEDS: SODIUM CHLORIDE 0.9% IV 1,000 ML 75 ML IV CONT (17:38)
[2020-06-21 18:00] VITALS: BP 147/76; PULSE 116; RESP 16; TEMP 36.9; O2SAT 98
[2020-06-21 20:00] VITALS: O2SAT 98
--- NOTE | 2020-06-21 20:08 | PM.TDS ---
Transfer Discharge Sum: Prov Provider Date of admission: 06/17/20 10:21 Primary care physician: Roberto Ocasio, DO Admitting clinician: Hank Viera DO Consults: 06/18/20 Wound/ET Consult Routine Reason for Consult:: left great toe infection 06/18/20 07:56 Consult to Physician Routine Comment: Spoke with Dr Garcia @ 0916 (,[place]) Consulting Provider: Balbina Garcia tugboat dispatcher/ group to consult: dr. chandan faith Reason for consultation: PAD Has provider been notified: Yes 06/18/20 09:59 Consult to Physician Routine Comment: Spoke with Dr Choudhary @ 0459 (,[place]) Consulting Provider: Epifanio Choudhary tugboat dispatcher/ group to consult: dr choudhary Reason for consultation: wound infection, possible osteo and severe PAD Has provider been notified: Yes 06/20/20 Consult to Physician Routine Comment: Spoke with Alyssia at office (,[place]) Consulting Provider: Yaron Hamilton tugboat dispatcher/MD group to consult: General surgery Reason for consultation: Left foot infection with concern for abscess and osteomyelitis Has provider been notified: Yes DS: Admitting Diagnosis Admitting Diagnosis Admitting Diagnosis: Infected foot wound, Cellulitis DS: Discharge Diagnosis Discharge Diagnosis (1) Acute osteomyelitis of toe of left foot: Code(s): M86.172 - Other acute osteomyelitis, left ankle and foot Status: Acute Assessment and Plan: Hospital Course: Mrs. Valadez is a 70 y.o. female with PMH significant for peripheral arterial disease and previously established with Dr. Ramirez at [facility], hypertension, neuropathy, and hyperlipidemia who presented to the emergency department 06/15/20 with concern for left foot cellulitis. She reported a traumatic injury 4 days prior when she stubbed her left toe on an oak table leg. She subsequently noticed erythema and edema at the dorsum of the foot. MRI without contrast was performed and showed concern for osteomyelitis. The wound subsequently developed duskiness of the superficial skin distally and there was probable bone on exam by general surgery 06/20 with fluctuance and drainable purulent fluid which was a significant change from prior exams. Initial wound culture shows oxacillin-sensitive staphylococcus aureus. Deep culture was obtained by general surgery 06/20 with preliminary results demonstrating gram positive cocci. Blood cultures are final and show no growth. WBC has normalized and she is afebrile. CRP is improving (7.2 today - 34.2 on presentation 06/16). Infectious disease is following and recommends IV ancef until evaluation by vascular surgery. She has severe peripheral arterial disease with hx of RLE fem-distal bypass by Dr. Ramirez which appears occluded on arterial duplex. GUY is 0.34 on R and 0.36 on left. She has left HOME OFFICE REPRESENTATIVE stenosis and occlusion of the left SFA with reconstitution on arterial duplex. Doppler signal is present to DP and PT. She does not have rest pain. Her arterial disease appears chronic. Unfortunately, she has developed acute osteomyelitis following traumatic injury. Potential for wound healing is poor with her current vascular status. I discussed her care with general surgery who also recommends vascular evaluation. I discussed the case with , vascular surgeon at [facility]. recommends transfer for vascular surgery evaluation and further treatment as indicated. She was transferred in hemodynamically stable condition on the evening of 06/21/20. (2) Diet-controlled type 2 diabetes mellitus: Code(s): E11.9 - Type 2 diabetes mellitus without complications Status: Acute Assessment and Plan: A1c is 5.1. Fasting blood sugars have been well controlled. Continue diabetic diet. (3) Hypokalemia: Code(s): E87.6 - Hypokalemia Status: Chronic Assessment and Plan: Resolved. Continue to monitor. (4) Peripheral arterial disease: Code(s): I73.9 - Peripheral vascular disease, uns
[2020-06-21] MEDS: ENOXAPARIN 40 MG/0.4 ML SYRINGE SUB-Q (20:39)
[2020-06-21] MEDS: ATORVASTATIN 40 MG TABLET PO (20:39)
[2020-06-21] MEDS: GABAPENTIN 100 MG CAPSULE PO (20:39)
[2020-06-21 21:51] VITALS: BP 133/61; PULSE 100; RESP 16; TEMP 36.9; O2SAT 98
--- NOTE | 2020-06-21 22:03 | PC.NURSE ---
Pt discharged to [facility] per [facility] report called by Maureen brooks RN to [facility].
== END 2020-06-21 21:45 | disposition short-term general hospital (02) | DRG 603 ==
LOC: ANHED 11:48 → ANH2MED 15:46
PROVIDERS: Physician Assistant; Admitting Provider Student in an Organized Health Care Education/Training Program; Emergency Provider Emergency Medicine; PCP Student in an Organized Health Care Education/Training Program; Visit Provider Physician Assistant
DX: L03.032 Cellulitis of left toe (principal); M86.172 Other acute osteomyelitis, left ankle and foot; E87.1 Hypo-osmolality and hyponatremia; E11.52 Type 2 diabetes mellitus with diabetic peripheral angiopathy with gangrene; E11.69 Type 2 diabetes mellitus with other specified complication; B95.7 Other staphylococcus as the cause of diseases classified elsewhere; E11.40 Type 2 diabetes mellitus with diabetic neuropathy, unspecified; E87.6 Hypokalemia; R00.0 Tachycardia, unspecified; E78.00 Pure hypercholesterolemia, unspecified; I10 Essential (primary) hypertension; K21.9 Gastro-esophageal reflux disease without esophagitis; W22.8XXA Striking against or struck by other objects, initial encounter; Z79.899 Other long term (current) drug therapy; Z87.891 Personal history of nicotine dependence; Z88.0 Allergy status to penicillin; Z91.048 Other nonmedicinal substance allergy status; Z89.431 Acquired absence of right foot
CPT/HCPCS: 36415; 73630; 73718; 80048; 80053; 80061; 80076; 80202; 83036; 83605; 83735; 84295; 84443; 85025; 85027; 85610; 85730; 86140; 87040; 87070; 87147; 87186; 87205; 93005; 93922; 93925; 96365; 96366; 96367; 99285; A9270; G0378; J0690; J0743; J1650; J2405; J3370; J7030; J7040

== ENCOUNTER 2021-01-18 13:13 | Outpatient (NON) | payer MEDICARE, MEDICAID, SELFPAY ==
[2021-01-18 14:18] LABS: Hematocrit 39.4 % (37.0-47.0); Hemoglobin 12.5 g/dL (12.0-15.0); Mean Corpuscular HGB Conc 31.7 g/dl (32-36); Mean Corpuscular Hemoglobin 28.3 pg (26-34); Mean Corpuscular Volume 89.3 fl (80-100); Mean Platelet Volume 8.5 fl (7.4-10.4); Platelet Count Result 164 k/mm3 (150-375); Red Blood Count 4.41 M/mm3 (4.2-5.4); Red Cell Distribution Width 15.7 % (11.5-14.5); White Blood Count 6.3 K/mm3 (4.5-10.0)
[2021-01-18 14:47] LABS: Erythrocyte Sedimentation Rate 19 mm/hr (0-20)
== END 2021-01-18 13:14 | disposition home or self-care (01) ==
PROVIDERS: PCP Student in an Organized Health Care Education/Training Program; Visit Provider Student in an Organized Health Care Education/Training Program
DX: L89.612 Pressure ulcer of right heel, stage 2 (principal)
CPT/HCPCS: 85027; 85652

== ENCOUNTER → 2022-01-22 15:11 | Outpatient (CLI) | payer MEDICARE, MEDICAID, SELFPAY ==
--- NOTE | ~2022-01-22 | US_ITS ---
US transvaginal DATE: 01/22/2022 16:15 INDICATION: Adnexal mass reported on outside CT examination TECHNIQUE: Real-time imaging via transvaginal approach only COMPARISON: 12/24/2011 CT abdomen pelvis FINDINGS: The uterus measures approximately 5 cm height, 2.6 cm AP dimension. The central endometrial echo complex measures approximately 5 mm AP dimension. Left adnexal soft tissue mass measures 5.4 x 4.9 cm. Differential diagnosis includes possible serosal fibroid or ovarian benign or less likely malignant neoplasm. Retrospectively there appears to be a s imilar soft tissue mass in the left adnexal area on 12/24/2011 CT abdomen pelvis examination The right adnexal area is obscured by gas. IMPRESSION: Probable chronic at least 5.4 cm left adnexal soft tissue mass; differential diagnosis in cludes serosal fibroid, benign or ovarian lesion. Reviewed, dictated and finalized at [facility]. Reviewed, dictated and finalized at [facility]. IMPRESSION: Probable chronic at least 5.4 cm left adnexal soft tissue mass; dif ferential diagnosis includes serosal fibroid, benign or ovarian lesion.
== END ==
PROVIDERS: PCP Student in an Organized Health Care Education/Training Program; Visit Provider Student in an Organized Health Care Education/Training Program
DX: N94.89 Other specified conditions associated with female genital organs and menstrual cycle (principal)
CPT/HCPCS: 76830

== ENCOUNTER → 2023-01-03 11:09 | Outpatient (CLI) | payer MEDICARE, SELFPAY ==
--- NOTE | ~2023-01-03 | XR_ITS ---
XR chest 2V 01/03/2023 11:33 Indication: Opacity of the lung. Procedure: 2 view chest Comparison: Comparison to multiple prior studies sequentially, with oldest reviewed study dated 01/2011. Findings: Large hiatal hernia. Cardiomegaly. Left basilar atelectasis. No focal pneumonia, edema, ple ural effusion or significant pneumothorax. There is scoliosis. Impression: 1: Left basilar atelectasis. 2: Large hiatal hernia. Reviewed, dictated and finalized at location [] Impression: 1: Left basilar atelectasis. 2: Large hiatal hernia.
== END ==
PROVIDERS: PCP Student in an Organized Health Care Education/Training Program; Visit Provider Student in an Organized Health Care Education/Training Program
DX: R91.8 Other nonspecific abnormal finding of lung field (principal); K44.9 Diaphragmatic hernia without obstruction or gangrene
CPT/HCPCS: 71046

== ENCOUNTER 2024-09-24 15:02 | Outpatient (CLI) | payer MEDICARE, MEDICAID, SELFPAY ==
--- NOTE | ~2024-09-24 | MM_ITS ---
EXAMINATION: MM screening [facility] BI w tanvi HISTORY: Screening TECHNIQUE: Craniocaudal and mediolateral oblique 3-D tomosynthesis images were obtained and synthetic 2-D images were generated. CAD analysis was submitted and interpreted. COMPARISON: 09/18/2011 BREAST PARENCHYMAL COMPOSITION: The breasts are heterogeneously dense, which may obscure small masses . FINDINGS: Punctate calcifications are detected bilaterally, stable and benign in appearance. Punctate calcifications detected bilaterally, vascular in origin and benign in appearance. Stable parenchymal pattern without suspicious microcalcifications, architectural distortion, discrete masses or significant asymmetry. IMPRESSION: 1. No mammographic/tomographic evidence of malignancy. 2. Recommend routine screening mammography in one year. BI-RADS Category 2: Benign finding(s). Reviewed, dictated and finalized at location A. [facility] RN
--- OUTSIDE RECORDS SUMMARY | 2024-09-24 15:07 | XMS_ITS | Clinical Summary ---
Author Organization [facility] [address] [facility] Address [address] [place] [address] Care Team Providers Care Sas Sql Developer Name Role Phone Alessandra Reed MD Unavailable [phone] Martinez Bergman DPM Unavailable [phone] Roberto Ocasio DO Primary Care Provide r Ricardo Yost DO Unavailable [phone] Allergies Active Allergy Reactions Criticality Noted Date Comments Nickel Rash Medium 02/08/2020 Penicillins Hives,Rash Medium 02/08/2020 Medications gabapentin (NEURONTIN) 100 mg capsule Take 2 capsules (200 mg total) by mouth 3 (three) times a day 180 capsule 11 0 05/31/20 26 Active diphenhydrAMINE (BENADRYL) 25 mg capsule Take 1 tablet/capsule (25 mg total) by mouth 4 (four) times a day as needed for itching or allergies 30 capsule 1 Active cyanocobalamin (Vitamin B-12) 1,000 mcg/mL injection Active BD Luer-Luis Syringe 3 mL 25 gauge x 1 syringe USE ONCE A MONTH 1 Active simvastatin (ZOCOR) 20 mg tablet Take 1 tablet (20 mg total) by mouth nightly Active multivitamin tablet,chewable Take 1 tablet/chew tab by mouth Active Xarelto 10 mg tablet Take 1 tablet (10 mg total) by mouth daily 2 Active amLODIPine (NORVASC) 5 mg tablet Take 1 tablet (5 mg total) by mouth daily 2 Active fenofibrate (TRIGLIDE) 160 mg tablet Take 1 tablet (160 mg total) by mouth daily 2 Active aspirin 325 mg tablet Take 1 tablet (325 mg total) by mouth daily Active melatonin 10 mg tablet Take 1 tablet (10 mg total) by mouth nightly as needed Active magnesium oxide (MAG-OX) 400 mg (241.3 mg elemental magnesium) tablet Take 1 tablet (400 mg total) by mouth daily 4 Active furosemide (LASIX) 20 mg tablet Take 1 tablet (20 mg total) by mouth daily 4 Active potassium chloride ER 20 mEq CR tablet 4 Active spironolactone (ALDACTONE) 25 mg tablet Take 1 tablet (25 mg total) by mouth daily 4 Active BD Integra Syringe 3 mL 25 gauge x 1 syringe USE ONCE A MONTHLY DIRECTED 4 Active metoprolol (LOPRESSOR) 5 mg/5 mL injection Infuse into a venous catheter Active Active Problems Problem Noted Date Diagnosed Date Positive colorectal cancer screening using Colog uard test 09/23/2023 Adenomatous polyp of ascending colon 09/23/2023 Personal history of nicotine dependence 11/23/19 21 Primary insomnia 11/22/2020 Acute blood loss anemia 10/03/2020 Assessment & Plan (10/06/2020 2:26 PM CDT): - Transfused x1 unit 10/03 for hgb 7.5 - Monitor CBC and for signs and symptoms of bleeding Adnexal mass 09/26/2020 Assessment & Plan (10/06/2020 2:26 PM CDT): - CTA incidental finding left adnexal mass measuring 5.2 cm. - Recommend follow up in 1 month with ultrasound B12 deficiency 09/25/2020 Overview (09/25/2020): On home B12 1,000 mcg/ml injections. - Continue home B12 Assessment & Plan (09/25/2020 2:53 PM SUPERINTENDENT OPERATING): On home B12 injections once monthly. Last had an injection several days prior to admission. - CTM Constipation 09/25/2020 Overview (09/25/2020): On home pericolace 8.6-50 mg BID prn. - Continue home pericolace Environmental allergies 09/25/2020 Assessment & Plan (09/25/2020 3:12 PM SUPERINTENDENT OPERATING): On home benadryl 25 mg QID prn. - Continue home benadryl PAD (peripheral artery disease) 09/25/2020 Overview (05/30/2023): Last Assessment & Plan: - Continue aspirin, statin daily - MIKI + CTAIF with runoff to toes and delayed tibial imaging completed - PT/OT, heel focused walking - Vein mapping completed. - Allergy consulted for allergy to nickel, no interventions or testing to predict if stent placement is safe or will react. Patient given risks/benefits of iliac stent vs ax-fem bypass, patient elected to try stenting. - OR 06/27 for Left femoral endarterectomy, iliac stent and BK pop bypass, to ICU post op overnight for hypotension, resolved with 2u PRBC, neosynephrine gtt, since weaned - OR 06/28 with podiatry for toe amputation and pathology - Liberated to q4h NV checks - Daily Aspirin, statin + Xarelto Last Assessment & Plan: H/o RLE PAD s/p RLE bypass c/b chronic occlusion and R TMA (2011). - On 09/22/20, pt found to have worsening RLE wounds w/ a large gangrenous eschar on the lateral 5th metatarsal, a slightly boggy eschar on the heel, and a wound on her dorsal foot w/ possible tendon exposure. On home gabapentin 200 mg TID. - Heparin gtt - Pain control: home gabapentin, acetaminophen 1 g q6, oxy 5 mg q4 prn - Bowel reg: pericolace dana, miralax dana, dulcolax suppository prn - OR 09/29 for redo right groin and BK pop exposures, right EIA balloon/stent, right CFEA and patch w/ a new PTFE bypass to BK pop; surgery c/b bleeding issues - OR 09/30 s/p revision of bypass graft - CTM for allergic sx given right EIA balloon/stent (covered lifestream) i/s/o nickel allergy - Tx out of ICU 10/03 - PT/OT - OOB TID - Continue aspirin, statin Assessment & Plan (10/06/2020 2:25 PM CDT): H/o RLE PAD s/p RLE bypass c/b chronic occlusion and R TMA (2011). - On 09/22/20, pt found to have worsening RLE wounds w/ a large gangrenous eschar on the lateral 5th metatarsal, a slightly boggy eschar on the heel, and a wound on her dorsal foot w/ possible tendon exposure. On home gabapentin 200 mg TID. - Heparin gtt - Pain control: home gabapentin, acetaminophen 1 g q6, oxy 5 mg q4 prn - Bowel reg: pericolace dana, miralax dana, dulcolax suppository prn - OR 09/29 for redo right groin and BK pop exposures, right EIA balloon/stent, right CFEA and patch w/ a new PTFE bypass to BK pop; surgery c/b bleeding issues - OR 09/30 s/p revision of bypass graft - CTM for allergic sx given right EIA balloon/stent (covered lifestream) i/s/o nickel allergy - Tx out of ICU 10/03 - PT/OT - OOB TID - Continue aspirin, statin Assessment & Plan (09/25/2020 8:41 AM SUPERINTENDENT OPERATING): H/o RLE PAD s/p RLE bypass c/b chronic occlusion. Also h/o remote R TMA. On 09/22/20, pt found to have worsening RLE wounds w/ a large gangrenous eschar on the lateral 5th metatarsal, a slightly boggy eschar on the heel, and a wound on her dorsal foot w/ possible tendon exposure. On home gabapentin 200 mg TID, oxy 5 mg q4 prn, and acetaminophen 1 g q6 prn for pain. On home zofran 4 mg q4 prn for nausea. - Hold home xarelto - Heparin gtt - Pain control: home gabapentin, acetaminophen 1 g q6, oxy 5 mg q4 prn - Nausea control: zofran 4 mg q4 prn - Imagin-view R foot XR, CTA A/P w/ runoff, possible MR - Podiatry c/s, appreciate recs - Plan to reach out to Dr. Toro pending imaging findings - Surgery plan pending test results Aftercare following surgery of the circulatory s ystem 08/17/2020 Leukocytosis 07/27/2020 Assessment & Plan (07/28/2020 12:29 PM SUPERINTENDENT OPERATING): - WBC increased yesterday. Stable this am. T max 38 overnight - C. Diff negative 07/27 - Check blood cultures per ID - Check UA, CXR Pressure injury of right heel, stage 2 0 Assessment & Plan (07/26/2020 6:36 AM SUPERINTENDENT OPERATING): - Present on admission - Offload with elizabeth boots when in bed - No weight bearing restrictions - Podiatry recommends Allevyn foam dressing change every other day - Betadine paint BID Wound of left groin 07/18/2020 Assessment & Plan (09/25/2020 3:16 PM SUPERINTENDENT OPERATING): On home collagenase 250 unit/gram BID. - Continue home collagenase Assessment & Plan (09/12/2020 9:14 AM SUPERINTENDENT OPERATING): - STOP Ciprofloxacin 500mg BID and Augmentin 875-125mg BID as pt has completed ~10 weeks of thearpy. - In order to simplify and narrow coverage to Cx growth, upon discussion with Dr. Lerner, will START Keflex 500mg BID for chronic suppression of LLE s/p revascularization attempt, stenting, with retained stents/grafts. Cx from L great toe + MSSA. - Pt doing well clinically despite uncertain adherence to abx. - Labs today for monitoring: CBC, CMP, ESR. CRP - Discussed with patient the rational for treatment, culture results, risk of recurrent infection, signs/symptoms of recurrent infection, and to contact ID clinic with any questions or concerns. Assessment & Plan (08/15/2020 10:32 AM SUPERINTENDENT OPERATING): - Will continue Ciprofloxacin, dose change to 500mg BID, START Augmentin 875- 125mg BID (additional coverage now that pt is off IV Cefazolin), for infection of LLE s/p revascularization attempt, stenting, with retained stents/grafts. - Will discuss potential length of treatment based on pt's repeat imaging of LLE to evaluate fluid collections. - Continue wound care as directed. - Discussed with patient the rational for treatment, culture results, risk of recurrent infection, signs/symptoms of recurrent infection, and to contact ID clinic with any questions or concerns. - Ciprofloxacin has been associated with nausea, diarrhea, headaches, insomnia, restlessness, dizziness. Rarely, it may be associated with tendon rupture (particularly in patients over the age of 60, those concurrently on steroids, and heart/lung/kidney transplant recipients), photosensitivity, QTc prolongation, transaminase elevation, peripheral neuropathy, seizures, interstitial nephritis. CBC and CMP should be monitored weekly while on this medication. Do not take this antibiotic with milk or other calcium enriched drinks or products such as fortified orange juice or Tums. Do not take with antacids, multivitamins, iron tablets, magnesium, or aluminum. If you must take the aforementioned products, take them 2 hours after or 6 hours before taking the antibiotic. - Augmentin can be associated with GI intolerance, diarrhea, rash, leukopenia, thrombocytopenia, interstitial nephritis, LFT elevation, cholestatic hepatitis. Assessment & Plan (07/28/2020 4:38 PM SUPERINTENDENT OPERATING): 70 y.o. female w/PMH of T2DM, HTN, DVT on xarelto and PAD s/p L-com fem endarterectomy, L-ext iliac angioplasty and stenting and below knee popliteal artery bypass (06/27) and L-great toe amputation (06/28); now admitted with L-groin wound dehiscence and known MSSA OM at the toe margin. - L-groin surgical wound dehiscence w/purulent drainage, erythema and tenderness - CrCl 59 ml/min, CRP 19.9, ESR 49, WBC 7.4, PT 274. - CTA (07/17): interval fem-pop bypass, multifocal arterial stenosis with single vessel runoff; diffuse lower extremity dedema with multiple rim-enhancing fluid collections in the thigh along the femoropopliteal bypass graft and lower leg ? hematomas v abscess - Discontinued metronidazole 2/2 GI intolerance (07/27) Recommendations: - Bcx x2 given fever and fluid collections in L thigh. - Continue to monitor for s/s of infection. - Continue on ciprofloxacin 750mg PO q12h. - ID will continue to follow. Assessment & Plan (07/29/2020 1:06 PM SUPERINTENDENT OPERATING): - s/p previous remote R TMA and L [employer]ISTR[employer] PROFESSION[employer] endarterectomy, left EIA angioplasty/stenting and left fem-BK pop bypass with PTFE on 06/27/20 (Derek) presenting with 1 day of increased drainage and erythema at left groin wound. - CTA w/ left distal thigh and medial calf with rim-enhancing fluid collections favored to represent old residual hematoma rather than abscess - Wrap entire LLE with MELITA. Try thigh high MIKHAIL hose - ID consulted: cefazolin (06/28-08/09, 6 weeks) + cipro (dc linezolid), add flagyl PO 07/24, dc'd 07/27 due to nausea - Per , as wound is improving and debridement would require graft manipulation, no surgical plans presently. Continue to monitor. - Wound re-consulted for vac placement - Sutures removed from left calf 07/28 - Discharge held today 2/2 Tmax of 38 overnight-- likely due to transfusion, but infectious workup per ID. CXR no new opacities, UA 3+ LE but no urinary Sx, BCx NGTD. May be safe for discharge at this time-- awaiting call back from ID. Hyperlipidemia 07/18/2020 Assessment & Plan (10/06/2020 2:23 PM CDT): On home atorvastatin 40 mg daily. - Continue home atorvastatin Assessment & Plan (09/25/2020 8:36 AM SUPERINTENDENT OPERATING): On home atorvastatin 40 mg daily. - Continue home atorvastatin Assessment & Plan (07/18/2020 8:53 AM SUPERINTENDENT OPERATING): - continue home atorvastatin, ASA Drug allergy 07/18/2020 Assessment & Plan (07/26/2020 6:42 AM SUPERINTENDENT OPERATING): Previous admission Increasing in area/itching, presumed to be due to drug reaction as she was on empiric antibiotics- cefepime, flagyl, vancomycin, as well as proximity to metoprolol trial. Reported that rash improved after switching back to cefazolin from cefepime; Allergy feels like rash most likely related to medication (Cefepime) vs willy. - Morbilliform rash to L thigh this admission, [facility]'ed, now improving - PRN benadryl scheduled zyrtec - Sarna lotion PRN, hydrocortisone cream 4 times daily UTI (urinary tract infection) 07/06/2020 Assessment & Plan (07/07/2020 3:05 PM SUPERINTENDENT OPERATING): - Endorsed urinary hesitancy, UA checked with culture growing E. Coli - Susceptible to cefazolin, as above Deep vein thrombosis (DVT) 07/02/2020 Overview (05/30/2023): - Patient with venous injury in OR s/p repair, now with acute DVT on ultrasound. - Tolerating therapeutic heparin infusion. - [facility] pricing $206 for Eliquis/Xarelto. No Pradaxa coverage. - Will plan for warfarin once final ID recs and line placed for home antibiotics. Assessment & Plan (07/26/2020 6:36 AM SUPERINTENDENT OPERATING): - dx on 06/28/20 US w/ acute thrombus in femoral/popliteal veins - DC Therapeutic heparin gtt, restarted home Xarelto 1/5 Acute DVT (deep venous thrombosis) 07/02/2020 Assessment & Plan (10/06/2020 2:23 PM CDT): H/o L femoral endarterectomy and profundaplasty, L external iliac artery stenting (Lifestream), and L common femoral to below knee popliteal artery bypass w/ PTFE (06/27/20) c/b LLE DVT. Prescribed home xarelto 10 mg daily and ASA 81 mg daily. Pt reports that she has been taking xarelto 20 mg daily and ASA 325 mg daily. - Hold home xarelto (see PAD), continue heparin gtt - ASA 81 mg daily Assessment & Plan (09/25/2020 8:35 AM SUPERINTENDENT OPERATING): H/o L femoral endarterectomy and profundaplasty, L external iliac artery stenting (Lifestream), and L common femoral to below knee popliteal artery bypass w/ PTFE (06/27/20) c/b LLE DVT. On home xarelto 10 mg daily and ASA 81 mg daily. - Hold home xarelto (see PAD) - Continue home ASA Assessment & Plan (07/07/2020 3:01 PM SUPERINTENDENT OPERATING): - Venous injury in OR s/p repair - Vein duplex with DVT noted to mid femoral vein, distal femoral vein and popliteal vein - Holding Lovenox for supratherapeutic INR - INR 1.3 -> 2 -> 3 -> 3.8 -> 3.5 after 1 dose of 3mg of coumadin - Re-checking 07/06 afternoon - LFTs WNL, checking nutritional labs - Hematology c/s for input regarding significantly elevated INR after 1 dose of Coumadin - Hematology recommend Xarelto 20 mg x3 months + aspirin - Will discharge with coupon for free month, Hematology clinic to assist with further prescriptions/enrolling in patient assistance programs - After 3 months, Hematology recommends transition to low dose Xarelto 10 mg daily + aspirin Type 2 diabetes mellitus wit h diabetic polyneuropathy, without long-term current use of insulin 06/30/2020 Assessment & Plan (09/25/2020 2:54 PM SUPERINTENDENT OPERATING): A1c 5.8 (06/22/20). Currently controlled w/ diet. Previously was uncontrolled and was c/b PAD resulting in R toe amputations and RLE arterial bypass in 2011. - LDSSI Assessment & Plan (09/25/2020 8:37 AM SUPERINTENDENT OPERATING): A1c 5.8 (06/22/20). Controlled w/ diet. - LDSSI Assessment & Plan (07/18/2020 8:52 AM SUPERINTENDENT OPERATING): - Diet controlled at home - LD SSI while inpatient - Carb consistent diet Assessment & Plan (07/03/2020 8:30 AM SUPERINTENDENT OPERATING): T2 DM w/ complications of diabetic neuropathy BLE and non-healing wounds with amputations: - A1c 5.8% - Podiatry reviewed diabetic foot care instructions w/ pt - Managed with dietary modifications at home per pt - HDSSI, continue to monitor BG Tachycardia 06/30/2020 Assessment & Plan (06/30/2020 10:15 PM SUPERINTENDENT OPERATING): Persistent throughout hospitalization, volume status euvolemic postoperatively. Was on IVP metoprolol in ICU -Transition to PO metoprolol as she is tolerating full diet. Sacral insufficiency fracture 06/25/2020 Assessment & Plan (07/01/2020 9:57 AM SUPERINTENDENT OPERATING): - Found on CTA, repeat CT with chronic/subacute right sacral ala insufficiency fracture with no acute fractures noted of the pelvis or proximal femurs - Consulted Orthopedics, non-operative management at this time. - Should follow up in [facility], ambulatory referral has been placed Candidal intertrigo 06/24/2020 Assessment & Plan (07/01/2020 9:43 AM SUPERINTENDENT OPERATING): - Miconazole powder per ID - Keep area clean and dry Assessment & Plan (06/24/2020 10:57 AM SUPERINTENDENT OPERATING): Chyna intertrigo under right breast. Recommend nystatin powder and keeping area dry Therapeutic drug monitoring 06/23/2020 Assessment & Plan (06/29/2020 3:46 PM SUPERINTENDENT OPERATING): CBC with diff, CMP weekly. Hypertensive disorder 06/22/2020 Assessment & Plan (10/06/2020 2:23 PM CDT): On home amlodipine 2.5 mg daily and metoprolol tartrate 12.5 mg BID. Pt reports good BP control at home (~120/70). - Continue home amlodipine and metoprolol - VS q 4 Assessment & Plan (09/25/2020 8:37 AM SUPERINTENDENT OPERATING): On home amlodipine 2.5 mg daily and metoprolol tartrate 12.5 mg BID. - Continue home amlodipine and metroprolol Assessment & Plan (07/18/2020 8:53 AM SUPERINTENDENT OPERATING): - VS Q4 hrs - Continue home amlodipine, metoprolol Assessment & Plan (07/07/2020 3:05 PM SUPERINTENDENT OPERATING): - Holding all home antihypertensives but resumed low dose metoprolol for HR control - SBP goal 100-160 - Shock postoperatively requiring vasopressors and blood/fluid resuscitation - low dose metoprolol, 2.5mg daily amlodipine started - Monitor I&O and BP Osteomyelitis 06/21/2020 Overview (06/26/2020): Added automatically from request for surgery [id number] Assessment & Plan (11/21/2020 9:19 AM CDT): - Continue Daptomycin 350mg IV daily until 11/19/20, s/p 6 weeks of CTX/Flagyl, for treatment of R foot osteomyelitis and wound infection, s/p multiple vascular procedures and bedside debridement, Cx + MRSE, but high concern for polymicrobial infection. - Continue weekly CBC, CMP, CK while on IV antibiotics. - Inflammatory markers ordered today, ESR/CRP. - Continue wound care as directed by surgery team. - Discussed with patient the rational for treatment, culture results, risk of recurrent infection, signs/symptoms of recurrent infection, and to contact ID clinic with any questions or concerns. - Daptomycin is generally well tolerated. Weekly CPK should be checked to monitor for dose dependent CPK elevation with or without myopathy. Daptomycin may also cause LFT, LDH, and INR elevations. INR elevation is falsely prolonged and there is no anticoagulation effect in vivo. This falsely elevated INR can be minimized by drawing the INR 24 hours after daptomycin is administered. Rarely, daptomycin can cause neuropathy, jaundice, or eosinophilic pneumonia. CBC and CMP should be checked 1x/week while on the drug. Daptomycin discontinuation in patients with elevated CPK should occur according to the following conditions: Asymptomatic patients - discontinue daptomycin if the CPK is >10x the upper limit of normal. Symptomatic patients or sedated/non-verbal patients, discontinue daptomycin if the CPK is >5x the upper limit of normal. Assessment & Plan (10/27/2020 12:58 PM CDT): - Continue Ceftriaxone 2g IV daily x6 weeks (10/02-11/12/20), Metronidazole 500mg PO every 8 hours x6 weeks (10/02-11/12/20), and Daptomycin 350mg IV daily x6 weeks (10/09- 11/19/20) for treatment of R foot osteomyelitis and wound infection, s/p multiple vascular procedures, and bedside debridement, Cx + MRSE, but high concern for polymicrobial infection. - Of note, pt was on Keflex suppression for left groin/surgical site infection, s/p IV therapy, with Cx + MSSA. After completion of IV abx for current infection, can consider transitioning back to suppression either with Keflex, or doxycycline, which would cover both MRSE and MSSA. - Advised patient to continue wound care as directed. - Will continue weekly CBC, CMP and bi-weekly CK while on IV therapy. - Discussed with patient the rational for treatment, culture results, risk of recurrent infection, signs/symptoms of recurrent infection, and to contact ID clinic with any questions or concerns. - Daptomycin is generally well tolerated. Weekly CPK should be checked to monitor for dose dependent CPK elevation with or without myopathy. Daptomycin may also cause LFT, LDH, and INR elevations. INR elevation is falsely prolonged and there is no anticoagulation effect in vivo. This falsely elevated INR can be minimized by drawing the INR 24 hours after daptomycin is administered. Rarely, daptomycin can cause neuropathy, jaundice, or eosinophilic pneumonia. CBC and CMP should be checked 1x/week while on the drug. Daptomycin discontinuation in patients with elevated CPK should occur according to the following conditions: Asymptomatic patients - discontinue daptomycin if the CPK is >10x the upper limit of normal. Symptomatic patients or sedated/non-verbal patients, discontinue daptomycin if the CPK is >5x the upper limit of normal. - Ceftriaxone: Monitoring weekly CBC and CMP for possibility of rash/eosinophilia and pseudocholelithiasis (gallbladder sludging) or hepatitis. Rarely, ceftriaxone can cause drug fever, hepatitis, neutropenia, thrombocytopenia, hemolytic anemia, cholecystitis, or interstitial nephritis. - Metronidazole is associated with GI intolerance, metallic taste, headaches, dark urine. Rarely, it can be associated with seizures, encephalopathy, aseptic meningitis, Castro-Alfonso syndrome, peripheral neuropathy, insomnia, and a disulfiram-like reaction with alcohol. Patients are advised to avoid alcohol while taking the medication. Assessment & Plan (10/06/2020 3:18 PM CDT): - 3-view R foot XR (09/25): no definite radiographic e/o osteo - CTA A/P w/ runoff (09/26): postsurgical changes of R transmetatarsal amputation w/ large overlying skin wound which contacts the lateral aspect of the R metatarsal and subQ gas; findings possibly related to dry gangrene or a necrotizing infection; recommend MRI if c/f acute osteo - MRI (09/28): acute osteo of L fifth metatarsal distal stump; early osteo of far posterior calcaneus - Podiatry c/s: s/p debridement 10/02 follow up bone cultures. Non weight bearing to RLE. Wound VAC placed 10/04. - ID consulted and recommended Ceftriaxone 2 grams IV every 24 hours, duration 6 weeks and Metronidazole 500 mg po every 8 hours, duration 6 weeks - PICC line placed - Plastic Surgery consulted for evaluation of L lateral foot wound for coverage options; pt would like no further surgery at this time - Understands the risks and complications; has good insight into her problem and understands the eventual outcome Assessment & Plan (08/15/2020 10:24 AM SUPERINTENDENT OPERATING): - Pt has completed 6 weeks of IV cefazolin 2g q8hrs for osteomyelitis of the L great toe, s/p amputation, Cx + MSSA. - Given good wound healing, ok to stop IV Cefazolin. - Rin may be removed. - Orders provided for pt to take to facility. Assessment & Plan (07/25/2020 2:14 PM SUPERINTENDENT OPERATING): cx + MSSA - ESR/CRP (07/17): 49/19 Recommendations: - Wound looks to be healing without without e/o infection. - Continue on cefazolin 2g IV q8h as originally planned,06/28-08/09. Assessment & Plan (07/28/2020 12:13 PM SUPERINTENDENT OPERATING): - s/p amputation on 06/28/20 with podiatry - ID consulted: cipro, cefazolin, and metronidazole (developed drug rash in response to vanco). Had been refusing flagyl 2/2 nausea, ok to DC per ID - Dr. Hurtado of podiatry following and recommend Allevyn foam every other day changes for the next week as long as no leakage/drainage is noted then may discontinue dressings on left foot. - Has right chest Rin in place from previous discharge with IV antibiotics. Assessment & Plan (07/02/2020 12:13 PM SUPERINTENDENT OPERATING): Assessment/Plan 70 year old female with PMH including: T2dm, hyperlipidemia, HTN. Admitted a week after trauma to her L great toe found to be gangrenous on admission to [facility]. She had a bedside debridement there, cx + MSSA. Started on cefazolin and transferred to [facility] for revascularization. - OSH CT/MR L foot (06/22): soft tissue ulceration along the great toe distal phalanx tuft with underlying OM in distal phalanx and possible SA of IPJ; subacute on chronic denervation atrophy of the instrinsic foot musculature - BCX (06/27): NGTD - OR bone cx (06/28): MSSA >> amputation 1st toe at MTPJ, bleeding at the amputation margins, head of 1st metatarsal intact and appeared healthy Developped rash while being on vancomcyin, cefepime and metronoidazole. Changed to cefazolin on 06/30. Tolerating well and no worsening of rash Recommendations: 1. Continue iv cefazolin 2gms Q8hrs 2. Waiting for central line placement 3. Patient lives alone at home. If she goes home then we will consider ceftriaxone which is once a day instead of cefazolin. 4. ID will continue to follow. Matt Hernandze MD,[employer] weapons sergeant Division of Infectious Diseases Team 3 ID attending phone- [phone] Pager- [phone] Assessment & Plan (07/05/2020 8:45 AM SUPERINTENDENT OPERATING): - L foot x-ray with soft tissue ulceration at the great toe distal phalanx tuft with underlying osteomyelitis of the distal phalanx - L great toe amputation by Podiatry 06/28 - Continue Cefazolin, planning for 4-6 weeks from 06/28 - IR placed line 06/28 Risk for falls 02/08/2020 Primary insomnia 02/08/2020 Assessment & Plan (10/06/2020 2:23 PM CDT): On home ramelteon 8 mg nightly prn. - Continue home ramelteon Assessment & Plan (09/25/2020 8:37 AM SUPERINTENDENT OPERATING): On home ramelteon 8 mg nightly prn. - Continue home ramelteon Arteriosclerosis of artery of extremity 07/04/20 11 Assessment & Plan (07/07/2020 2:58 PM SUPERINTENDENT OPERATING): - Continue aspirin, statin daily - MIKI + CTAIF with runoff to toes and delayed tibial imaging completed - PT/OT, heel focused walking - Vein mapping completed. - Allergy consulted for allergy to nickel, no interventions or testing to predict if stent placement is safe or will react. Patient given risks/benefits of iliac stent vs ax-fem bypass, patient elected to try stenting. - OR 06/27 for Left femoral endarterectomy, iliac stent and BK pop bypass, to ICU post op overnight for hypotension, resolved with 2u PRBC, neosynephrine gtt, since weaned - OR 06/28 with podiatry for toe amputation and pathology - Liberated to q4h NV checks - Daily Aspirin, statin + Xarelto Resolved Problems Problem Noted Date Diagnosed Date Resolved Date Anemia 07/28/2020 09/25/2020 Assessment & Plan (09/25/2020 8:36 AM SUPERINTENDENT OPERATING): On home ferrous sulfate 325 mg (65 mg elemental iron) daily. - Continue home ferrous sulfate Assessment & Plan (07/28/2020 12:57 PM SUPERINTENDENT OPERATING): - H/H 7.4/22 - Transfused 1 unit 07/27 with appropriate bump in hgb - Monitor CBC Nausea 07/26/2020 07/28/2020 Assessment & Plan (07/27/2020 9:30 AM SUPERINTENDENT OPERATING): - Patient endorses nausea over the last 3 days, she contributes this to flagyl. - Continue zofran PRN Rash 06/30/2020 09/25/2020 Assessment & Plan (09/25/2020 8:40 AM SUPERINTENDENT OPERATING): On home camphor-menthol lotion topically q2 prn, collagenase BID, hydrocortisone 2.5% cream QID, and miconazole 2% powder BID. - Continue home camphor-menthol lotion, collagenase, hydrocortisone cream, and miconazole powder Assessment & Plan (07/05/2020 8:48 AM SUPERINTENDENT OPERATING): - Increasing in area/itching, presumed to be due to drug reaction as she was on empiric antibiotics- cefepime, flagyl, vancomycin, as well as proximity to metoprolol trial - Reports rash improving after switching back to cefazolin from cefepime; allergy feels like rash most likely related to medication (Cefepime) vs willy - hydrocortisone cream QID + scheduled zyrtec - prn diphenhydramine - Rash continues to improve subjectively per pt and objectively Gangrene 06/22/2020 07/02/2020 Assessment & Plan (06/30/2020 12:01 PM SUPERINTENDENT OPERATING): 70 year old female with PMH including: T2dm, hyperlipidemia, HTN. Admitted a week after trauma to her L great toe found to be gangrenous on admission to [facility]. She had a bedside debridement there, cx + MSSA. Started on cefazolin and transferred to [facility] for revascularization. - OSH CT/MR L foot (06/22): soft tissue ulceration along the great toe distal phalanx tuft with underlying OM in distal phalanx and possible SA of IPJ; subacute on chronic denervation atrophy of the instrinsic foot musculature - BCX (06/27): NGTD - OR bone cx (06/28): MSSA >> amputation 1st toe at MTPJ, bleeding at the amputation margins, head of 1st metatarsal intact and appeared healthy Plan: - New rash, episode of fever while on cefepime, flagyl and vancomycin. Previously had tolerated cefazolin without problems. Given OR cx and new rash, possibly antibiotic related, ok to narrow back to cefazolin since she previously well tolerated well with close monitoring. - CBC with diff and CMP monitoring. - ID will continue to follow over the weekend. Assessment & Plan (07/01/2020 9:41 AM SUPERINTENDENT OPERATING): - Gangrenous left great toe, concern for osteomyelitis - L great toe 3v x-ray with underlying osteomyelitis of the distal phalanx - Continuing cefazolin, OSH cultures with MSSA - ID consulted for antibiotic recommendation/[place] [facility] plans, following patient. - Podiatry consulted; left great toe amputation at TMP joint on 06/28 - MSSA bone cultures from toe, ID consultation recommending cefazolin 2gm q8h Immunizations Immunization Administration Dates Next Due Influenza, Quadrivalent, Hig h Dose, Preservative Free, Intrr 04/09/2022,04/08/2021,04/09/2020 Influenza, Unspecified 04/08/2020 Pneumococcal Conjugate Pcv20 12/25/2021 ZOSTER Recombinant 08/17/2021,04/15/2021 Surgical History Surgery Date Site/Laterality Comments TONSILLECTOMY SECTION x 2 TOE SURGERY FEMORAL BYPASS RLE Bilateral RLE, LLE stents for PVD CENTRAL LINE PLACEMENT > 5 YEARS 07/03/2020 N/A Medical History Medical History Date Comments HTN (hypertension) HLD (hyperlipidemia) Diabetes (HCC) PAD (peripheral artery disease) Environmental allergies B12 deficiency Primary insomnia Wound of left groin Acute DVT (deep venous thrombosis) (HCC) Colon polyp Family History Medical History Relation Name Comments Heart attack Father Heart disease Father Anesthesia problems Neg Hx Relation Name Status Comments Father Social History Tobacco Use Types Packs/Day Years Used Date Smoking Tobacco: Former Cigarettes Q uit: 09/19/2019 Smokeless Tobacco: Never Tobacco Cessation:Counseling Given: Not Answered Comments:Pt smoked under a pack of cigarettes for 50 years Alcohol Use Standard Drinks/Week Comments Yes 1 (1 standard drink = 0.6 oz pur e alcohol) AUDIT-C Answer Date Recorded Q1: How often do you have a drink containing alc ohol? 2-3 times a week 10/28/2023 Q2: How many drinks containi ng alcohol do you have on a typical day when you are drinking? 1 or 2 10/28/2023 Q3: How often do you have si x or more drinks on one occasion? Never 10/28/2023 Personal Safety Answer Date Recorded Have you ever been in or are you currently in a harmful physical or emotional relationship or is someone making you feel afraid or unsafe? Denies 10/28/2023 Comments No Sex and Gender Information Value Date Recorded Sex Assigned at Not on file Legal Sex Female 1:08 PM SUPERINTENDENT OPERATING Gender Identity Not on file Sexual Orientation Not on file Obstetrics History Last Filed Vital Signs Vital Sign Reading Time Taken Comments Blood Pressure 115/88 10/28/2023 12:24 PM CDT Pulse 67 10/28/2023 12:24 PM CDT Temperature 36 C (96.8 F) 10/28/2023 11:24 AM CDT Respiratory Rate 20 10/28/2023 12:24 PM CDT Oxygen Saturation 92% 10/28/2023 12:24 PM CDT Inhaled Oxygen Concentration - - Weight 64.9 kg (143 lb) 10/28/2023 10:06 AM CDT Height 167.6 cm (5' 6 ) 10/28/2023 10:06 AM CDT Body Mass Index 23.08 10/28/2023 10:06 AM CDT Plan of Treatment Scheduled Procedures Name Priority Associated Diagnoses Date/Ti me COLONOSCOPY Open Access Positive colorectal cancer screening using Cologuard test Adenomatous polyp of ascending colon Health Maintenance Due Date Last Done Comments Albumin Creatinine Ratio, Urine 1950 Depression Screening 1950 Osteoporosis Screening-Bone Density Scan 1950 eGFR 1950 Dilated Eye Exam 1950 Foot Exam 1950 DTaP/Tdap/Td Vaccine (1 - Tdap) 1959 Hepatitis B Screening 1966 Well Visit 65+ 2013 Hemoglobin A1C 03/28/2021 09/25/2020, 06/22/2020 Covid-19 Vaccine (4 - 2023-2 5 season) 2024 07/09/2021, 09/06/2020, 08/16/2020 Influenza Vaccine (#1) 2024 2, 04/08/2021, 04/09/2020, Additional history exists Lipid Panel 10/08/2024 10/09/2023, 06/0 01/2022, 03/01/2021, Additional history exists Fall Risk Assessment 10/27/2024 10/28/2023 Hepatitis C Screening Completed 09/29/2020 Zoster Vaccine Completed 08/17/2021, 04/15/2021 Pneumococcal vaccine 65+ Completed 12/25/2021 Colon Cancer Screening-Colonoscopy Discontinued 10/28/2023 Medical Devices Implanted Type Area Bending Frame Operator Device Identifier Shelf Expiration Date Model / Serial / Lot [employer] Vg-[id number] Vascu-Guard 8x.8cm Peripheral Patch Vascular Bovine Pericardium - S00 - [id number] Implanted:Qty : 1 on 09/29/2020 by Alessandra Reed MD at [facility] Aneurysm Coils Right: Other - see comments [employer] 06/07/2025 VG-0108 N / 00 / [id number] Description:Popliteal implan t Bard Peripheral Vascular [id number] Lifestream 7mm 37mm 80cm Balloon Expandable Low Profile Cover - S00 - [id number] Implanted:Qty : 1 on 09/29/2020 by Alessandra Reed MD at [facility] Endoprosthesis Right: Iliac [employer] [id number] 03/20/2023 [id number] / 00 / [id number] Bard Peripheral Vascular [id number] Lifestream 7mm 58mm 80cm Balloon Expandable Low Profile Cover - S00 - [id number] Implanted:Qty : 1 on 09/29/2020 by Alessandra Reed MD at [facility] Endoprosthesis Right: Iliac Bard Peripheral Vascular [id number] 07/20/2022 [id number] / 00 / [id number] [employer] [id number] Leonore 6mm 70cm 60cm Removable Ring Stretch Thin Wall Graft - [id number] - [id number] Implanted:Qty : 1 on 06/27/2020 by Alessandra Reed MD at [facility] Graft Left: Leg [employer] [id number] 12/01/2023 [id number] / [id number] / [facility] [employer] Vg-0108n Vascu-Guard 8x.8cm Peripheral Patch Vascular Bovine Pericardium - S00 - [id number] Implanted:Qty : 1 on 06/27/2020 by Alessandra Reed MD at [facility] Graft Left: Femoral [facility] [employer] 02/22/2025 VG-0108 N / 00 / [id number] [facility] [employer] Vg-0108n Vascu-Guard 8x.8cm Peripheral Patch Vascular Bovine Pericardium - S00 - [id number] Implanted:Qty : 1 on 06/27/2020 by Alessandra Reed MD at [facility] Graft Left: Leg [facility] [employer] 02/22/2025 VG-0108 N / 00 / [id number] Description:Left popliteal a rtery [employer] [id number] Leonore 6mm 80cm 60cm Removable Ring Stretch Thin Wall Graft - [id number] - [id number] Implanted:Qty : 1 on 09/29/2020 by Alessandra Reed MD at [facility] Other - see comments Right: Leg [employer] [id number] 03/21/2024 [id number] / [id number] / 00 [facility] [employer] Vg-0108n Vascu-Guard 8x.8cm Peripheral Patch Vascular Bovine Pericardium - S00 - [id number] Implanted:Qty : 1 on 09/29/2020 by Alessandra Reed MD at [facility] Other - see comments Right: Femoral [facility] [employer] 06/07/2025 VG-0108 N / 00 / [id number] Description:Bovine patch [facility] [employer] Vg-0108n Vascu-Guard 8x.8cm Peripheral Patch Vascular Bovine Pericardium - [id number] Implanted:Qty : 1 on 09/30/2020 by Alessandra Reed MD at [facility] Other - see comments Right: Leg [facility] [employer] 05/17/2025 VG-0108 N / / [id number] Description:Tibial-peritonea l branch Bard Peripheral Vascular [id number] Lifestream 7mm 58mm 80cm Balloon Expandable Low Profile Cover - S00 - [id number] Implanted:Qty : 1 on 06/27/2020 by Alessandra Reed MD at [facility] Stent Left: Iliac [employer] 07/20/2022 [id number] / 00 / Description:Left external il iac Bard Peripheral Vascular [id number] Lifestream 7mm 37mm 80cm Balloon Expandable Low Profile Cover - S00 - [id number] Implanted:Qty : 1 on 06/27/2020 by Alessandra Reed MD at [facility] Stent Left: Iliac [employer] 07/20/2022 [id number] / / Description:Left external il iac Procedures Procedure Name Priority Date/Time Associated Diagnosis Comments COLONOSCOPY 10/28/2023 10:08 AM CDT HEPATITIS C ANTIBODY Routine 09/29/2020 11:35 AM SUPERINTENDENT OPERATING HEMOGLOBIN A1C STAT 09/25/2020 2:14 PM SUPERINTENDENT OPERATING LIPID PANEL Routine 06/22/2020 1:40 AM SUPERINTENDENT OPERATING from Last 3 Months or Most Recently Relevant to Health Maintenance Results * Colonoscopy (10/28/2023 10:08 AM CDT) Anatomical Region Laterality Modality Other Narrative Procedure Note Erich Terry MD - 10/28/2023 10:08 AM CDT [facility] ENDOSCOPY [facility] Patient Name: Camilla Valadez Procedure Date: 10/28/2023 10:08 AM Date of : 1950 Admit Type: Outpatient Age: 73 Gender: Female Attending MD: Erich Buchanan M.D. Room: [facility] ENDOSCOPY ROOM 9 Note Status: Finalized Procedure: Colonoscopy Indications: Excision of colonic polyp in the ascending colonfound on prior colonoscopy. Referring MD: Ricardo Yost D.O. Providers: Erich Buchanan M.D. Medicines: Monitored Anesthesia Care Complications: No immediate complications. Estimated Blood Loss: Estimated blood loss was minimal. Procedure: Pre-Anesthesia Assessment: - The risks and benefits of the procedure and the sedation options and risks were discussed with the patient. All questions were answered and informed consent was obtained. - Immediately prior to administration ofmedications, the patient was re-assessed for adequacy to receive sedatives. The benefits, risks and alternatives of theprocedure and sedation were discussed and informed consentwas obtained. All questions were answered. Please referto the signed informed consent document in the medical record. The colonoscopy was performed without difficulty. The patient tolerated the procedurewell. The quality of the bowel preparation was adequate.The quality of the bowel preparation was evaluatedusing the BBPS ([place] Bowel Preparation Scale) withscores of: Right Colon = 3, Transverse Colon = 3 and Left Colon = 3 (entire mucosa seen well with no residual staining, small fragments of stool or opaqueliquid). The total BBPS score equals 9. The quality of the bowel preparation was evaluated using the BBPS([place] Bowel Preparation Scale) with scores of: RightColon = 2 (minor amount of residual staining, smallfragments of stool and/or opaque liquid, but mucosa seenwell), Transverse Colon = 2 (minor amount of residual staining, small fragments of stool and/or opaque liquid, but mucosa seen well) and Left Colon = 2 (minor amount of residual staining, small fragmentsof stool and/or opaque liquid, but mucosa seen well).The total BBPS score equals 6. The scope was passedunder direct vision. The PCF [id number] endoscopewas introduced through the anus and advanced to thececum, identified by appendiceal orifice and ileocecalvalve. The bowel preparation used was polyethylene glycol (PEG) via split dose instruction. Findings: The perianal and digital rectal examinations were normal. A ~50 mm polyp was found in the ascending colon. The polyp was Raiza classification Is (protruding, sessile). Preparations were made for mucosal resection. Digital chromoendoscopy was done to ricardo theborders of the lesion. Demarcation of the lesion was performed to clearly identify boundaries of the lesion. 5 mL of Eleview was injected with adequate lift of the lesion from the muscularis propria. Piecemeal mucosal resection using a cold snare with suction (via the working channel) retrieval was performed. A 55 mm area was resected.Resection and retrieval were complete. Intraprocedural bleeding had stopped atthe end of the procedure. To reduce the risk of post-piecemeal EMR polyp recurrence, the resection margins were treated with soft coagulation using the tip of a hot biopsy forceps. Avulsion technique wasperformed on scattered residual adenomatous appearing tissue. To preventbleeding post-intervention, endoscopic closure was attempted. The X-tackdevice was loaded, however a defective introducer catheter was noted upon deployment of the first tack. This was removed and instead, six hemostatic clips were successfully placed. Impression: - Successful cold- EMR and clip closure of a ~50 mm Raiza class Is lesion in the ascending colon. Recommendation: - Repeat colonoscopy in 6 months for surveillance after resection of large colonic polyp. - No ibuprofen, naproxen, or other non-steroidal anti-inflammatory drugs for 10 days after polyp removal. - Do not lift >25 lb for 10 days to decrease riskof bleeding. - Watch for complications such as blood in thestool, acute onset abdominal pain/perforation, fevers. - Restart Xarelto in 2 days (as discussed in the recovery area). - Await pathology results from tissue sampling. Ifyou do not receive a call from my office after 5business days following today's procedure, please call my office at [phone] and speak to my nurse. - In the unusual situation that you developabdominal pain, bleeding or other significant problems in the days following this procedure please call my office [phone]). After hours and eveningsplease call [phone] and speak to the GI fellow tucker. Please tell the fellow that Dr. Buchanan did your procedure and that you were instructed to have the fellow call me or the physician covering for me to discuss the management of your condition. If youhave an urgent problem, please go to the nearestemergency room and have the ER doctor call my office duringthe day or the GI fellow after hours and weekends to arrange admission or transfer to our facility.Please bring this report with you if you go to theemergency room. Attending Participation: I personally performed the entire procedure. Electronically signed by Erich Buchanan MD Erich Buchanan M.D. 10/28/2023 11:27:35 AM . Number of Addenda: 0 Note Initiated On: 10/28/2023 10:08 AM Erich Buchanan MD ENDOSCOPY PROCEDURES Edited Result - Final * Hepatitis C antibody (09/29/2020 11:35 AM SUPERINTENDENT OPERATING) Hep C Ab Nonreactive Nonreactive DEE [facility]EE [facility] Comment:Antibodies to HCV no t detected. Does NOT exclude the possibility of recent exposure to HCV. Blood specimen (specimen) 09/29/2020 11:35 AM SUPERINTENDENT OPERATING 09/29/2020 12:06 PM SUPERINTENDENT OPERATING Notinfile Unknown LAB MICROBIOLOGY - GENERAL ORD ERABLES Edited Result - Final [facility] Department [place] [address] * Hemoglobin A1c (09/25/2020 2:14 PM SUPERINTENDENT OPERATING) Hgb A1C 5.4 4.0 - 5.6 % [facility] Estimated Average Glucose 108 mg/dL DEE DEE [facility] Comment: The ADA recommends reporting an estimated Average Glucose (eAG) with all Hemoglobin A1c results using the equation derived from a study of 507 normal and diabetic adults. Minority populations were underrepresented and children were not included. (Diabetes Care 31:8577-3162, 2008). The eAG is not equivalent to a fasting glucose. Blood specimen (specimen) 09/25/2020 2:14 PM SUPERINTENDENT OPERATING 09/25/2020 3:47 PM SUPERINTENDENT OPERATING Alessandra Reed MD LAB BLOOD ORDERABLES Alissa lujan Result [facility] Department [place] [address] * Lipid panel (06/22/2020 1:40 AM SUPERINTENDENT OPERATING) Cholesterol 121 30 - 199 mg/dL DEE DEE [facility] Comment: Interpretive Data Ages < or = 19 years Acceptable: <170 mg/dL Borderline high: 170-199 mg/dL High: >or= 200 mg/dL Ages > or = 20 years Desirable: <200 mg/dL Borderline high: 200-239 mg/dL High: >or= 240 mg/dL Literature References: 1. Expert Panel on Integrated Guidelines for Cardiovascular Health and Risk Reduction in Children and Adolescents. Pediatrics 2011;128:S213 2. NCEP Expert Panel. Circulation 2004;110:227 Current Interpretive Data was last revised on 2018. Triglycerides 84 <=149 mg/dL DEE DEE [facility] Comment: Interpretive Data Ages < or = 9 years Acceptable: <75 mg/dL Borderline high: 75-99 mg/dL High: >or= 100 mg/dL Ages 10 to 20 years Acceptable: <90 mg/dL Borderline high: 90-129 mg/dL High: >or= 130 mg/dL Ages > or = 20 years Desirable: <150 mg/dL Borderline high: 150-199 mg/dL High: 200-499 mg/dL Very high: >or= 499 mg/dL Literature References: 1. Expert Panel on Integrated Guidelines for Cardiovascular Health and Risk Reduction in Children and Adolescents. Pediatrics 2011;128:S213 2. NCEP Expert Panel. Circulation 2004;110:227 Current Interpretive Data was last revised on 2018. HDL 42 >=40 mg/dL [facility] Comment: Interpretive Data Ages < or = 19 years Acceptable: >45 mg/dL Borderline low: 40-45 mg/dL Low: <40 mg/dL Ages > or = 20 years Desirable: >or= 60 mg/dL Low: <40 mg/dL Literature References: 1. Expert Panel on Integrated Guidelines for Cardiovascular Health and Risk Reduction in Children and Adolescents. Pediatrics 2011;128:S213 2. NCEP Expert Panel. Circulation 2004;110:227 Current Interpretive Data was last revised on 2018. LDL, calculated 62 <=129 mg/dL [facility] Comment: Interpretive Data Ages < or = 19 years Acceptable: <110 mg/dL Borderline high: 110-129 mg/dL High: >or= 130 mg/dL Ages > or = 20 years Optimal: <100 mg/dL Near optimal: 100-129 mg/dL Borderline high: 130-159 mg/dL High: >160 mg/dL Literature References: 1. Expert Panel on Integrated Guidelines for Cardiovascular Health and Risk Reduction in Children and Adolescents. Pediatrics 2011;128:S213 2. NCEP Expert Panel. Circulation 2004;110:227 Current Interpretive Data was last revised on 2018. Non-HDL Cholesterol 79 mg/dL [facility] Comment: Interpretive Data Ages < or = 19 years Acceptable: <120 mg/dL Borderline high: 120-144 mg/dL High: >145 mg/dL Ages > or = 20 years When triglycerides are >200 mg/dL, Non-HDL cholesterol is a secondary target of therapy with treatment goals that are 30 mg/dL greater than the LDL cholesterol target. Literature References: 1. Expert Panel on Integrated Guidelines for Cardiovascular Health and Risk Reduction in Children and Adolescents. Pediatrics 2011;128:S213 2. NCEP Expert Panel. Circulation 2004;110:227 Current Interpretive Data was last revised on 2018. Chol/HDL ratio 3 [facility] Blood specimen (specimen) 06/22/2020 1:40 AM SUPERINTENDENT OPERATING 06/22/2020 2:35 AM SUPERINTENDENT OPERATING us Alessandra Reed MD LAB BLOOD ORDERABLES Alissa lujan Result [facility] Department [place] [address] from Last 3 Months or Most Recently Relevant to Health Maintenance Insurance MEDICARE MEDICARE [facility] MEDICARE [facility] Advance Directives For more information, please contact: [phone] * Full Code (Latest Code Status on File) Date Activated Date Inactivated Comments 10/28/2023 9:47 AM 10/28/2023 4:32 PM * Full Code Date Activated Date Inactivated Comments 09/25/2020 2:00 PM 10/07/2020 11:21 PM * Full Code Date Activated Date Inactivated Comments 07/17/2020 10:29 PM 07/30/2020 4:35 PM * Full Code Date Activated Date Inactivated Comments 06/22/2020 12:49 AM 07/08/2020 5:16 PM Care Teams Sas Sql Developer Relationship Specialty Start Date End Date Roberto Ocasio DO [address] [place] [address] PCP - General Family Medicine 01/04/22 Alessandra Reed MD Surgeon Vascular Surgery 07/07/20 Martinez Bergman DPM Referring Physician Podiatry 10/07/20 Ricardo Yost DO [facility] [place] [address] Consulting Physician Gastroenterology 09/23/23
--- OUTSIDE RECORDS SUMMARY | 2024-09-24 15:07 | XMS_ITS | Referral Summary ---
Author Organization [facility] [address] [facility] [address] [place] [address] Care Team Providers Care Industrial Manufacturing Technician Name Role Phone Alessandra Reed MD Unavailable Martinez Bergman DPM Unavailable Roberto Ocasio DO Primary Care Provide r Ricardo Yost DO Unavailable [phone] Allergies Active Allergy Reactions Criticality Noted [...] B12 Assessment & Plan (09/25/2020 2:53 PM AGRI BUSINESS AGENT): On home B12 injections once monthly. Last had an injection several days prior to admission. - CTM Constipation 09/25/2020 Overview (09/25/2020): On home pericolace 8.6-50 mg BID prn. - Continue home pericolace Environmental allergies 09/25/2020 Assessment & Plan (09/25/2020 3:12 PM AGRI BUSINESS AGENT): On home benadryl 25 mg QID prn. [...] statin Assessment & Plan (09/25/2020 8:41 AM AGRI BUSINESS AGENT): H/o RLE PAD s/p RLE bypass c/b [...] 07/27/2020 Assessment & Plan (07/28/2020 12:29 PM AGRI BUSINESS AGENT): - WBC increased yesterday. Stable this am. T max 38 overnight - C. Diff negative 07/27 - Check blood cultures per ID - Check UA, CXR Pressure injury of right heel, stage 2 0 Assessment & Plan (07/26/2020 6:36 AM AGRI BUSINESS AGENT): - Present on admission - Offload with elizabeth boots when in bed - No weight bearing restrictions - Podiatry recommends Allevyn foam dressing change every other day - Betadine paint BID Wound of left groin 07/18/2020 Assessment & Plan (09/25/2020 3:16 PM AGRI BUSINESS AGENT): On home collagenase 250 unit/gram BID. - Continue home collagenase Assessment & Plan (09/12/2020 9:14 AM AGRI BUSINESS AGENT): - STOP Ciprofloxacin 500mg BID and Augmentin [...] concerns. Assessment & Plan (08/15/2020 10:32 AM AGRI BUSINESS AGENT): - Will continue Ciprofloxacin, dose change to [...] hepatitis. Assessment & Plan (07/28/2020 4:38 PM AGRI BUSINESS AGENT): 70 y.o. female w/PMH of T2DM, HTN, [...] follow. Assessment & Plan (07/29/2020 1:06 PM AGRI BUSINESS AGENT): - s/p previous remote R TMA and L WALLPAPER INSTALLER endarterectomy, left EIA angioplasty/stenting and left fem-BK [...] atorvastatin Assessment & Plan (09/25/2020 8:36 AM AGRI BUSINESS AGENT): On home atorvastatin 40 mg daily. - Continue home atorvastatin Assessment & Plan (07/18/2020 8:53 AM AGRI BUSINESS AGENT): - continue home atorvastatin, ASA Drug allergy 07/18/2020 Assessment & Plan (07/26/2020 6:42 AM AGRI BUSINESS AGENT): Previous admission Increasing in area/itching, presumed to be due to drug reaction as she was on empiric antibiotics- cefepime, flagyl, vancomycin, as well as proximity to metoprolol trial. Reported that rash improved after switching back to cefazolin from cefepime; Allergy feels like rash most likely related to medication (Cefepime) vs willy. - Morbilliform rash to L thigh this admission, [facility]'ed, now improving - PRN benadryl scheduled zyrtec - Sarna lotion PRN, hydrocortisone cream 4 times daily UTI (urinary tract infection) 07/06/2020 Assessment & Plan (07/07/2020 3:05 PM AGRI BUSINESS AGENT): - Endorsed urinary hesitancy, UA checked with [...] antibiotics. Assessment & Plan (07/26/2020 6:36 AM AGRI BUSINESS AGENT): - dx on 06/28/20 US w/ acute [...] daily Assessment & Plan (09/25/2020 8:35 AM AGRI BUSINESS AGENT): H/o L femoral endarterectomy and profundaplasty, L external iliac artery stenting (Lifestream), and L common femoral to below knee popliteal artery bypass w/ PTFE (06/27/20) c/b LLE DVT. On home xarelto 10 mg daily and ASA 81 mg daily. - Hold home xarelto (see PAD) - Continue home ASA Assessment & Plan (07/07/2020 3:01 PM AGRI BUSINESS AGENT): - Venous injury in OR s/p repair [...] 06/30/2020 Assessment & Plan (09/25/2020 2:54 PM AGRI BUSINESS AGENT): A1c 5.8 (06/22/20). Currently controlled w/ diet. Previously was uncontrolled and was c/b PAD resulting in R toe amputations and RLE arterial bypass in 2011. - LDSSI Assessment & Plan (09/25/2020 8:37 AM AGRI BUSINESS AGENT): A1c 5.8 (06/22/20). Controlled w/ diet. - LDSSI Assessment & Plan (07/18/2020 8:52 AM AGRI BUSINESS AGENT): - Diet controlled at home - LD SSI while inpatient - Carb consistent diet Assessment & Plan (07/03/2020 8:30 AM AGRI BUSINESS AGENT): T2 DM w/ complications of diabetic neuropathy BLE and non-healing wounds with amputations: - A1c 5.8% - Podiatry reviewed diabetic foot care instructions w/ pt - Managed with dietary modifications at home per pt - HDSSI, continue to monitor BG Tachycardia 06/30/2020 Assessment & Plan (06/30/2020 10:15 PM AGRI BUSINESS AGENT): Persistent throughout hospitalization, volume status euvolemic postoperatively. Was on IVP metoprolol in ICU -Transition to PO metoprolol as she is tolerating full diet. Sacral insufficiency fracture 06/25/2020 Assessment & Plan (07/01/2020 9:57 AM AGRI BUSINESS AGENT): - Found on CTA, repeat CT with chronic/subacute right sacral ala insufficiency fracture with no acute fractures noted of the pelvis or proximal femurs - Consulted Orthopedics, non-operative management at this time. - Should follow up in [facility] clinic, ambulatory referral has been placed Candidal intertrigo 06/24/2020 Assessment & Plan (07/01/2020 9:43 AM AGRI BUSINESS AGENT): - Miconazole powder per ID - Keep area clean and dry Assessment & Plan (06/24/2020 10:57 AM AGRI BUSINESS AGENT): Chyna intertrigo under right breast. Recommend nystatin powder and keeping area dry Therapeutic drug monitoring 06/23/2020 Assessment & Plan (06/29/2020 3:46 PM AGRI BUSINESS AGENT): CBC with diff, CMP weekly. Hypertensive disorder 06/22/2020 Assessment & Plan (10/06/2020 2:23 PM CDT): On home amlodipine 2.5 mg daily and metoprolol tartrate 12.5 mg BID. Pt reports good BP control at home (~120/70). - Continue home amlodipine and metoprolol - VS q 4 Assessment & Plan (09/25/2020 8:37 AM AGRI BUSINESS AGENT): On home amlodipine 2.5 mg daily and metoprolol tartrate 12.5 mg BID. - Continue home amlodipine and metroprolol Assessment & Plan (07/18/2020 8:53 AM AGRI BUSINESS AGENT): - VS Q4 hrs - Continue home amlodipine, metoprolol Assessment & Plan (07/07/2020 3:05 PM AGRI BUSINESS AGENT): - Holding all home antihypertensives but resumed low dose metoprolol for HR control - SBP goal 100-160 - Shock postoperatively requiring vasopressors and blood/fluid resuscitation - low dose metoprolol, 2.5mg daily amlodipine started - Monitor I&O and BP Osteomyelitis 06/21/2020 Overview (06/26/2020): Added automatically from request for surgery [id number] Assessment & Plan (11/21/2020 9:19 AM CDT): [...] outcome Assessment & Plan (08/15/2020 10:24 AM AGRI BUSINESS AGENT): - Pt has completed 6 weeks of IV cefazolin 2g q8hrs for osteomyelitis of the L great toe, s/p amputation, Cx + MSSA. - Given good wound healing, ok to stop IV Cefazolin. - Rin may be removed. - Orders provided for pt to take to facility. Assessment & Plan (07/25/2020 2:14 PM AGRI BUSINESS AGENT): cx + MSSA - ESR/CRP (07/17): 49/19 Recommendations: - Wound looks to be healing without without e/o infection. - Continue on cefazolin 2g IV q8h as originally planned,06/28-08/09. Assessment & Plan (07/28/2020 12:13 PM AGRI BUSINESS AGENT): - s/p amputation on 06/28/20 with podiatry [...] antibiotics. Assessment & Plan (07/02/2020 12:13 PM AGRI BUSINESS AGENT): Assessment/Plan 70 year old female with PMH including: T2dm, hyperlipidemia, HTN. Admitted a week after trauma to her L great toe found to be gangrenous on admission to [facility]. She had a bedside debridement there, cx + MSSA. Started on cefazolin and transferred to [facility] for revascularization. - OSH CT/MR L [...] 4. ID will continue to follow. Matt Hernandez MD,MPH [employer] Playertool grinder operator external Division of Infectious Diseases Team 3 ID attending phone- [phone] Pager- [phone] Assessment & Plan (07/05/2020 8:45 AM AGRI BUSINESS AGENT): - L foot x-ray with soft tissue [...] ramelteon Assessment & Plan (09/25/2020 8:37 AM AGRI BUSINESS AGENT): On home ramelteon 8 mg nightly prn. - Continue home ramelteon Arteriosclerosis of artery of extremity 07/04/20 11 Assessment & Plan (07/07/2020 2:58 PM AGRI BUSINESS AGENT): - Continue aspirin, statin daily - MIKI [...] 09/25/2020 Assessment & Plan (09/25/2020 8:36 AM AGRI BUSINESS AGENT): On home ferrous sulfate 325 mg (65 mg elemental iron) daily. - Continue home ferrous sulfate Assessment & Plan (07/28/2020 12:57 PM AGRI BUSINESS AGENT): - H/H 7.4/22 - Transfused 1 unit 07/27 with appropriate bump in hgb - Monitor CBC Nausea 07/26/2020 07/28/2020 Assessment & Plan (07/27/2020 9:30 AM AGRI BUSINESS AGENT): - Patient endorses nausea over the last 3 days, she contributes this to flagyl. - Continue zofran PRN Rash 06/30/2020 09/25/2020 Assessment & Plan (09/25/2020 8:40 AM AGRI BUSINESS AGENT): On home camphor-menthol lotion topically q2 prn, collagenase BID, hydrocortisone 2.5% cream QID, and miconazole 2% powder BID. - Continue home camphor-menthol lotion, collagenase, hydrocortisone cream, and miconazole powder Assessment & Plan (07/05/2020 8:48 AM AGRI BUSINESS AGENT): - Increasing in area/itching, presumed to be [...] 07/02/2020 Assessment & Plan (06/30/2020 12:01 PM AGRI BUSINESS AGENT): 70 year old female with PMH including: T2dm, hyperlipidemia, HTN. Admitted a week after trauma to her L great toe found to be gangrenous on admission to [facility]. She had a bedside debridement there, cx + MSSA. Started on cefazolin and transferred to [facility] for revascularization. - OSH CT/MR L [...] weekend. Assessment & Plan (07/01/2020 9:41 AM AGRI BUSINESS AGENT): - Gangrenous left great toe, concern for osteomyelitis - L great toe 3v x-ray with underlying osteomyelitis of the distal phalanx - Continuing cefazolin, OSH cultures with MSSA - ID consulted for antibiotic recommendation/group home plans, following patient. - Podiatry consulted; left great toe amputation at TMP joint on 06/28 - MSSA bone cultures from toe, ID consultation recommending cefazolin 2gm q8h Immunizations Immunization Administration Dates Next Due Influenza, Quadrivalent, Hig h Dose, Preservative Free, Intrr 04/09/2022,04/08/2021,04/09/2020 Influenza, Unspecified 04/08/2020 Pneumococcal Conjugate Pcv20 12/25/2021 ZOSTER Recombinant 08/17/2021,04/15/2021 Social History Tobacco Use Types Packs/Day Years [...] on file Legal Sex Female 1:08 PM AGRI BUSINESS AGENT Gender Identity Not on file Sexual Orientation Not on file Last Filed Vital Signs Vital Sign Reading [...] Cologuard test Adenomatous polyp of ascending colon Medical Devices Implanted Type Area Packerhead Machine Operator Device Identifier Shelf Expiration Date Model / Serial / Lot [employer] Vg-[id number] Vascu-Guard 8x.8cm Peripheral Patch Vascular Bovine Pericardium - S00 - [id number] Implanted:Qty : 1 on 09/29/2020 by Alessandra Reed MD at [facility] Aneurysm Coils Right: Other - see comments [employer] 06/07/2025 VG-0108 N / 00 / [id number] Description:Popliteal implan t Bard Peripheral Vascular [id number] Lifestream 7mm 37mm 80cm Balloon Expandable Low Profile Cover - S00 - [id number] Implanted:Qty : 1 on 09/29/2020 by Alessandra Reed MD at [facility] Endoprosthesis Right: Iliac Bard Peripheral Vascular [id number] 03/20/2023 [id number] / 00 / [id number] Bard Peripheral Vascular [id number] Lifestream 7mm 58mm 80cm Balloon Expandable Low Profile Cover - S00 - [id number] Implanted:Qty : 1 on 09/29/2020 by Alessandra Reed MD at [facility] Endoprosthesis Right: Iliac Bard Peripheral Vascular [id number] 07/20/2022 [id number] / 00 / [id number] [employer] [id number] Sidney 6mm 70cm 60cm Removable Ring Stretch Thin Wall Graft - [id number] - [id number] Implanted:Qty : 1 on 06/27/2020 by Alessandra Reed MD at [facility] Graft Left: Leg [employer] [id number] 12/01/2023 [id number] / [id number] / [employer] Vg-0108n Vascu-Guard 8x.8cm Peripheral Patch Vascular Bovine Pericardium - S00 - [id number] Implanted:Qty : 1 on 06/27/2020 by Alessandra Reed MD at [facility] Graft Left: Femoral [employer] 02/22/2025 VG-0108 N / 00 / [id number] [employer] Vg-[id number] Vascu-Guard 8x.8cm Peripheral Patch Vascular Bovine Pericardium - S00 - [id number] Implanted:Qty : 1 on 06/27/2020 by Alessandra Reed MD at [facility] Graft Left: Leg [employer] 02/22/2025 VG-0108 N / 00 / [id number] Description:Left popliteal a rtery [employer] [id number] Sidney 6mm 80cm 60cm Removable Ring Stretch Thin Wall Graft - [id number] - [id number] Implanted:Qty : 1 on 09/29/2020 by Alessandra Reed MD at [facility] Other - see comments Right: Leg [employer] [id number] 03/21/2024 [id number] / [id number] / 00 [employer] [facility] [employer] Vg-0108n Vascu-Guard 8x.8cm Peripheral Patch Vascular Bovine Pericardium - S00 - [id number] Implanted:Qty : 1 on 09/29/2020 by Alessandra Reed MD at [facility] Other - see comments Right: Femoral [employer] 06/07/2025 VG-0108 N / 00 / [id number] Description:Bovine patch [employer] Vg-0108n Vascu-Guard 8x.8cm Peripheral Patch Vascular Bovine Pericardium - [id number] Implanted:Qty : 1 on 09/30/2020 by Alessandra Reed MD at [facility] Other - see comments Right: Leg [employer] 05/17/2025 VG-0108 N / / [id number] Description:Tibial-peritonea l branch Bard Peripheral Vascular [id number] Lifestream 7mm 58mm 80cm Balloon Expandable Low Profile Cover - S00 - [id number] Implanted:Qty : 1 on 06/27/2020 by Alessandra Reed MD at [facility] Stent Left: Iliac Bard Peripheral Vascular 07/20/2022 [id number] / 00 / Description:Left external il iac Bard Peripheral Vascular [id number] Lifestream 7mm 37mm 80cm Balloon Expandable Low Profile Cover - S00 - [id number] Implanted:Qty : 1 on 06/27/2020 by Alessandra Reed MD at [facility] Stent Left: Iliac Bard Peripheral Vascular 07/20/2022 [id number] / 00 / Description:Left external il iac Procedures Procedure Name Priority Date/Time Associated Diagnosis Comments COLONOSCOPY 10/28/2023 10:08 AM CDT HEPATITIS C ANTIBODY Routine 09/29/2020 11:35 AM AGRI BUSINESS AGENT HEMOGLOBIN A1C STAT 09/25/2020 2:14 PM AGRI BUSINESS AGENT LIPID PANEL Routine 06/22/2020 1:40 AM AGRI BUSINESS AGENT from Last 3 Months or Most Recently Relevant to Health Maintenance Results * Colonoscopy (10/28/2023 10:08 AM CDT) Anatomical Region Laterality Modality Other Narrative Procedure Note Erich Terry MD - 10/28/2023 10:08 AM CDT [facility] Patient Name: Camilla Valadez Procedure Date: 10/28/2023 10:08 AM Date of : 1950 Admit Type: Outpatient Age: 73 Gender: Female Attending MD: Erich Buchanan M.D. Room: [facility] ENDOSCOPY ROOM 9 Note Status: [...] the bowel preparation was evaluatedusing the BBPS (Schertz Bowel Preparation Scale) withscores of: Right Colon = 3, Transverse Colon = 3 and Left Colon = 3 (entire mucosa seen well with no residual staining, small fragments of stool or opaqueliquid). The total BBPS score equals 9. The quality of the bowel preparation was evaluated using the BBPS(Schertz Bowel Preparation Scale) with scores of: RightColon [...] scope was passedunder direct vision. The PCF [id number] endoscopewas introduced through the anus and [...] today's procedure, please call my office at [phone] and speak to my nurse. - In the unusual situation that you developabdominal pain, bleeding or other significant problems in the days following this procedure please call my office [phone]). After hours and eveningsplease call [phone] and speak to the GI fellow tucker. [...] * Hepatitis C antibody (09/29/2020 11:35 AM AGRI BUSINESS AGENT) Hep C Ab Nonreactive Nonreactive [facility] Comment:Antibodies to HCV no t detected. Does NOT exclude the possibility of recent exposure to HCV. Blood specimen (specimen) 09/29/2020 11:35 AM AGRI BUSINESS AGENT 09/29/2020 12:06 PM AGRI BUSINESS AGENT us Notinfile Unknown LAB MICROBIOLOGY - GENERAL ORD ERABLES Edited Result - Final Performing Organization Address [facility] de Phone Number [facility] [place] [address] * Hemoglobin A1c (09/25/2020 2:14 PM AGRI BUSINESS AGENT) Hgb A1C 5.4 4.0 - 5.6 % [facility] Estimated Average Glucose 108 mg/dL [facility] Comment: The ADA recommends reporting an estimated Average Glucose (eAG) with all Hemoglobin A1c results using the equation derived from a study of 507 normal and diabetic adults. Minority populations were underrepresented and children were not included. (Diabetes Care 31:1810-7252, 2008). The eAG is not equivalent to a fasting glucose. Blood specimen (specimen) 09/25/2020 2:14 PM AGRI BUSINESS AGENT 09/25/2020 3:47 PM AGRI BUSINESS AGENT Alessandra Reed MD LAB BLOOD ORDERABLES Alissa l Result Performing Organization Address [facility] de Phone Number [facility] [place] [address] * Lipid panel (06/22/2020 1:40 AM AGRI BUSINESS AGENT) Cholesterol 121 30 - 199 mg/dL [facility] Comment: Interpretive Data Ages < or [...] revised on 2018. Triglycerides 84 <=149 mg/dL [facility] Comment: Interpretive Data Ages < or [...] revised on 2018. HDL 42 >=40 mg/dL [facility] Comment: Interpretive Data Ages < or [...] on 2018. LDL, calculated 62 <=129 mg/dL [facility] Comment: Interpretive Data Ages < or [...] revised on 2018. Non-HDL Cholesterol 79 mg/dL [facility] Comment: Interpretive Data Ages < or [...] last revised on 2018. Chol/HDL ratio 3 [facility] Blood specimen (specimen) 06/22/2020 1:40 AM AGRI BUSINESS AGENT 06/22/2020 2:35 AM AGRI BUSINESS AGENT us Alessandra Reed MD LAB BLOOD ORDERABLES Alissa lujan Result [facility] [place] [address] from Last 3 Months or Most Recently Relevant to Health Maintenance Insurance MEDICARE MEDICARE [place] MEDICARE [facility] Advance Directives For more information, please contact: [phone] * Full Code (Latest Code Status on File) Date Activated Date Inactivated Comments 10/28/2023 9:47 AM 10/28/2023 4:32 PM * Full Code Date Activated Date Inactivated Comments 09/25/2020 2:00 PM 10/07/2020 11:21 PM * Full Code Date Activated Date Inactivated Comments 07/17/2020 10:29 PM 07/30/2020 4:35 PM * Full Code Date Activated Date Inactivated Comments 06/22/2020 12:49 AM 07/08/2020 5:16 PM Care Teams Industrial Manufacturing Technician Relationship Specialty Start Date End Date Roberto Ocasio DO [address] [place] [id number] PCP - General Family Medicine 01/04/22 Alessandra Reed MD Surgeon Vascular Surgery 07/07/20 Martinez Bergman, TOMERM Referring Physician Podiatry 10/07/20 Ricardo Yost DO [address] [place] [id number] Consulting Physician Gastroenterology 09/23/23
--- OUTSIDE RECORDS SUMMARY | 2024-09-24 15:07 | XMS_ITS | Encounter Summary ---
Author Organization [facility] Address [address] [place] [address] Care Team Providers Care Wool Presser Name Role Phone Roberto Ocasio Kristen THOMAS Primary Care Provider + Tyson Silverio MD Unavailable [phone] Reason for Visit * Reason Comments Procedure (SCAN) Encounter Details Date Type Department Care Team ([facility] Contact Info) Description 09/15/2024 Scan HEALTH INFO SRVCS Scanned, Doc Med Group Procedure (SCAN) Social History Tobacco Use Types Packs/Day Years Used Date Smoking Tobacco: Former Cigarettes 0.5 40 0 09/19/1979 - 09/19/2019 Passive Smoke Exposure: Never Smokeless Tobacco: Never Alcohol Use Standard Drinks/Week Comments Yes 3 (1 standard drink = 0.6 oz pur e alcohol) Daily [facility] [employer] Answer Date Recorded In the past 12 months has [facility] [employer] gas, oil, or water [employer] threatened to shut off services in your home? No 07/01/2024 Humiliation, Afraid, Rape, and Kick questionnair e Answer Date Recorded Within the last year, have y ou been afraid of your partner or ex-partner? No 07/01/2024 Within the last year, have y ou been humiliated or emotionally abused in other ways by your partner or ex-partner? No Within the last year, have y ou been kicked, hit, slapped, or otherwise physically hurt by your partner or ex-partner? No 07/01/2024 Within the last year, have y ou been raped or forced to have any kind of sexual activity by your partner or ex-partner? No 07/01/2024 Overall Financial Resource Strain (CARDIA) Answe r Date Recorded How hard is it for you to pa y for the very basics like food, housing, medical care, and heating? Not very hard 07/01/2024 PHQ-2 Answer Date Recorded Patient Health Questionnaire-2 Score 0 08/19/2024 Hunger Vital Sign Answer Date Recorded Within the past 12 months, y ou worried that your food would run out before you got the money to buy more. Never true 07/01/20 24 Within the past 12 months, t he food you bought just didn't last and you didn't have money to get more. Never true 07/01/2024 PRAPARE - Transportation Answer Date Re corded In the past 12 months, has l ack of transportation kept you from medical appointments or from getting medications? No 06/20 In the past 12 months, has l ack of transportation kept you from meetings, work, or from getting things needed for daily living? No 07/01/2024 Housing Stability Vital Sign Answer Gerry e Recorded In the last 12 months, was t here a time when you were not able to pay the mortgage or rent on time? No 11/22/2022 In the last 12 months, how many places have you lived? 1 11/22/2022 In the last 12 months, was t here a time when you did not have a steady place to sleep or slept in a alf (including now)? No 11/22/2022 Housing Stability Vital Sign Answer Gerry e Recorded In the last 12 months, was t here a time when you were not able to pay the mortgage or rent on time? No 07/01/2024 In the past 12 months, how m any times have you moved where you were living? 0 07/01/2024 At any time in the past 12 m [facility], were you homeless or living in a alf (including now)? 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 Answer Date of Assessment Author Status No 07/01/2024 8:47 PM Valerie Chung RN Active * Do you have serious difficulty walking or climbing stairs? Answer Date of Assessment Author Status No 07/01/2024 8:47 PM Valerie Chung RN Active * Do you have difficulty dressing or bathing? Answer Date of Assessment Author Status No 07/01/2024 8:47 PM Valerie Chung RN Active * Because of a physical, mental, or emotional condition, do you have difficulty doing errands alone such as visiting a doctor's office or shopping? Answer Date of Assessment Author Status No 07/01/2024 8:47 PM Valerie Chung RN Active documented as of this encounter Mental Status * Because of a physical, mental, or emotional condition, do you have serious difficulty concentrating, remembering, or making decisions? Answer Entry Date Author Status No 07/01/2024 8:47 PM Valerie Chung RN Active documented in this encounter Plan of Treatment Upcoming Encounters Date Type Department Care Team (Late st Contact Info) Description 10/18/2024 11:20 AM CDT Office Visit [facility] Family & Internal Medicine - [place] [address] [place] [address] Roberto Ocasio, [facility] [place] [address] 11/04/2024 10:45 AM CDT Office Visit [facility] [address] [place] [address] Tyson Silverio MD [address] [address] 12/02/2024 11:30 AM CDT Office Visit [facility] [address] [place] [address] Irais Kang FNP [address] [facility] [address] [place] [address] 12/09/2024 10:20 AM CDT Office Visit [facility] Family & Internal Medicine [facility] [address] [place] [address] Roberto Ocasio DO [address] [place] [address] documented as of this encounter Procedures Procedure Name Priority Date/Time Associated Diagnosis Comments PULMONARY GENERIC 09/15/2024 documented in this encounter Results * PULMONARY GENERIC (09/15/2024) 09/15/2024 us Doc Med Group Scanned SCANNING Final Resu lt documented in this encounter Visit Diagnoses Not on filedocumented in this encounter Additional Health Concerns Assessment Noted Time PHQ-9 Depression Total Score: 4 02/08/20 20 11:47 AM CDT documented as of this encounter Care Teams Wool Presser Relationship Specialty Start Date End Date Roberto Ocasio DO [address] [place] [address] PCP - General FAMILY PRACTICE 02/08/20 Tyson Silverio MD [facility]. [address] [place], [place] [id number] Consulting Physician CARDIOVASCULAR DISEASE 07/05/24 documented as of this encounter
--- OUTSIDE RECORDS SUMMARY | 2024-09-24 15:07 | XMS_ITS | Data Portability ---
Author Organization [facility] Address [address] [place] [address] Assessment No assessment recorded. Plan of Treatment Reminders Order Date Submit Date Provider Last Modified By Organization Details Last Modified Time Details Appointments None recorded. Lab None recorded. Referral None recorded. Procedures None recorded. Surgeries None recorded. Imaging US, pelvis, transabdomi nal + transvagina l 2021 022 [email or web address] Not available 21:44:32 MRI, pelvis, w/wo contrast 2021 [facility], [address] [place], [address], 15:23:23 Medication Orders None recorded. Patient TargetsNo targets recorded. Patient InstructionsNo instructions recorded. Reason for Referral None Reported. Results Created Date Observation Date Name Description Value Unit Range Abnormal Flag Note LastModifiedBy Organization Detail LastModifiedTime 05/31/2006/01/2022 CA 125 Ca 125 7 U/mL <35 normal This test was perfo rmed using the Sieme ns Chemi lumin escen t metho d. Value s obtai emre from diffe rent assay metho ds canno t be used inter frey eakhloe . CA 125 level s, regar dless of value , shoul d not be inter prete d as absol merna evide nce of the prese nce or absen ce of disea se. Not Available [employer] [facility] [address], [place], [address], 06/01/2022 08:07:03 04/23/20 22 04/23/2022 US, pelvi s, trans abdom inal + trans vagin al No observ ation record ed. [email or web address], [place], [address], 04/23/2022 15:33:50 05/21/20 22 05/16/2022 MRI pel wwo con [facility] [place] [facility] [address] [facility] [place] [place], [place] [id number] EXAMIN ATION: MRI pelvis with and withou t contra st Access ion: [id number] Exam Date/T latha: 2021 11:35 AM Indica tion: 72 female presen ting for evalua tion of a ovaria n mass found on prepro cedure imagin g for the periph eral arteri al diseas e. COMPAR SHANI: Ultras ound transv aginal 01/23/20. No prior studie s availa ble for compar shani Techni que: Multip lanar multis equenc e MR imagin g of the pelvis perfor med withou t and follow ing IV admini strati on of 15 mL Dotare m contra st. Gyneco logic imagin g protoc ol used FINDIN GS: The uterus measur es 2.7 x 5.4 x 4.7 cm. Normal homoge neous enhanc ement of the uterin e myomet rium. No myomet rial masses . Endome trial cavity is within normal limits . No juncti onal zone thicke pushpa The right adnexa is normal . There is a left adnexa l bilobe d circum scribe d mass lesion measur ing 5.0 x 8.1 x 5.6 cm in in overal l dimens ions. This demons trates isoint ense T1 signal , hetero geneou s T2 both hypoec hoic and isoech oic signal with a few chemistry intern al cystic spaces . There is no discer nible enhanc ement seen on postco ntrast images includ ing subtra ction images . There is no depend ent ascite s. No pelvic adenop athy. No bowel obstru ction. Bilate ral anteri or inguin al region scarri ng probab ly relate d to prior vascul ar interv ention /sammy teriza tion. L5-S1 mild disc degene rative sleeve bottom feller ior narrow ing with a tiny sleeve bottom feller ior annula r tear and minima l disc bulge. Bilate ral sacral iliac joint arthri tic change . Normal marrow signal . Overal l normal marrow signal . =====I MPRESS ION:== === 1. Left adnexa l, ovaria n circum scribe d soft tissue mass measur ing 5.0 x 8.1 x 5.6 cm with a promin ent bilobe d appear ance with predom inantl y dark and isoint ense T1 and T2 signal , withou t discer nible enhanc ement; the imagin g appear ance sugges ts possib le fibrou s tumor includ ing fibrom a/fibr otheco ma. Other neopla stic lesion s are not exclud ed. Recomm endati on: Specia list gyneco logic surgic al consul tation for excisi on. 2. No other acute or signif icant pelvic MRI findin g. Ordere d By: OMA GOODWIN Electr onical ly Signed By: Puja Gaytan MD on 3:40 PM Interp reted By: Puja Gaytan MD, 2:16 PM [facility] [address] [place], [address], 05/24/2022 17:51:10 Result Notes None recorded. Problems Name Problem SNOMED Code Status Onset Date Resolution Date Notes Provider Name and Address Organization Details Recorded Time Hypertensive disorder 47840425 Active 2021 Oma Goodwin MD [facility] [place], [address], [facility] 2 15:46:21 Type 2 diabetes mellitus 91647709 Active 2021 Oma Goodwin MD [facility] [place], [address], [facility] 15:46:31 Hyperlipidem ia 77679941 Active 2021 Oma Goodwin MD [address] [place], [address], [facility] - [employer] IV 15:46:40 Deep venous thrombosis 609448755 Active 2021 on Xarelto Oma Goodwin MD [facility] [place], [address], [facility] [employer] IV 15:46:55 Peripheral arterial disease 239856327 Active 2021 Oma Goodwin MD [address] [place], [address], [facility] - [employer] [facility] IV 15:47:11 Problem Notes None recorded. Procedures Surgical History Date Name Laterality Status Provider Name and Address Organization Details Recorded Time [address] [facility] [employer] [facility] 04/23/2022 12:08:[address] [facility] [employer] [facility] 04/23/2022 12:07:57 Imaging Results Imaging Date Name Status LastModified by Organization Details LastModified Time 04/23/2022 US, pelvis, transabdominal + transvaginal completed [email or web address], [place], [address], 04/23/2022 15:33:50 05/16/2022 MRI pel wwo con completed [facility] [address] [facility], [place], [address], 05/24/2022 17:51:10 Procedure Notes None recorded. Medical Equipment None Reported. Allergies Allergen ID Allergen Name Allergen Category Reaction Reaction Severity Criticality Documentation Date Start Date Code Code System Note Provider Name and Address Organization Details Recorded Time 040147 Product containin g penicilli n (product) medicatio n Not available Not available Not available 04/23/2022 94390 8001 SNOMED Not Available Not Available Not Available Medications Name Sig Start Date Stop Date Status Note LastModified by Organization Details LastModified Time amlodipine 5 mg tablet active Not Available Not Available No t Available temazepam 15 mg capsule active Not Available Not Available N ot Available simvastatin 20 mg tablet active Not Available Not Available No t Available cyanocobalamin (vit B-12) 1,000 mcg/mL injection solution active Not Available Not Available Not Available BD Luer-Luis Syringe 3 mL 25 gauge x 1 USE ONCE A MONTH DIRECTED active Not Available Not Available No t Available gabapentin 100 mg capsule active Not Available Not Available N ot Available fenofibrate 160 mg tablet active Not Available Not Availabl e Not Available Xarelto 10 mg tablet active Not Available Not Available Not Available Vitals Date Recorded Body height Body mass index (BMI) Body weight Systolic blood pressure Diastolic blood pressure Provider Name and Address Organization Details Last Updated DateTime 04/23/2022 167.64 cm 26 kg/m2 86690.09 g 132 mm[Hg] 80 mm[Hg] Carlee Nascimento [facility] 12:11:14 Social History Question Answer Notes LastModified by Organizat ion Details LastModified Time Tobacco Smoking Status Former Smoker Carlee Nascimento null, [facility] 04/23/2022 12:07:36 What Is Your Level Of Alcohol Consumption? Occasional [email or web address] Information not available 04/23/2022 Are You Blind Or Do You Have Difficulty Seeing? No [email or web address] Information not available 04/23/2022 Are You Deaf Or Do You Have Serious Difficulty Hearing? No [email or web address] Information not available 04/23/2022 What Type Of Diet Are You Following? REGULAR [email or web address] Information not available 04/23/2022 When Did You Quit Smoking? 1-5yearssincel tate [email or web address] Information not available 04/23/2022 How Many Children Do You Have? 1 [email or web address] Information not available 04/23/2022 What Is Your Relationship Status? [email or web address] Information not available 04/23/2022 Are You Sexually Active? No [email or web address] Information not available 04/23/2022 Do You Use Any Illicit Or Recreational Drugs? No Information not available 04/23/2022 Do You Or Have You Ever Used Any Other Forms Of Tobacco Or Nicotine? No [email or web address] Information not available 04/23/2022 Sex: Unknown Functional Status None recorded. Mental Status None recorded. Family History Relationship Description Onset Age of this Age Resolved Age Notes LastModified by Organization Details LastModified Time Father No current problems or disability Not available 10/2021 12:07:03 Mother No current problems or disability [email or web address] Not available 10/2021 12:07:03 Medical History Condition Response High Blood Pressure Y Diabetes Mellitus (non-insulin dependent ) Y Anemia Y Deep Vein Thrombosis Y Seasonal allergies Y High Cholesterol Y Gynecological History Statement/Question Response If Post Menopausal, Age at Menopause 50 Date of Last Colonoscopy Date of LMP Date of Last Pap Smear Most Recent Mammogram Current Control Method Menopause Age at Menarche 11 Obstetrics History GPAL:G 4 P 3 0 2 3 Type Value Multiple Births 0 Full Term 3 Spontaneous 2 Living 3 Total 4 Past Encounters Encounter ID Performer Location Encounter Start Date Encounter Closed Date Diagnosis/Indication Diagnosis SNOMED-CT Code Diagnosis ICD10 Code Diagnosis Note [id number] Oma Goodwin MD [facility] [address] [place] [address] 04/23/2022 10:53:33 04/23/2022 13:13:47 Ultrasound scan abnormal [id number] R93.89 Recommend endometria l biopsy for slight thickening of endometria l lining on pelvic u/s. This could be a benign or malignant finding. The lining appears slightly irregular and there is a small amount of fluid present. I explained that endometria l biopsy would help to detect an endometria l cancer and if this is diagnosed early is highly treatable/ curable by surgery alone. Patient is adamant that she does not care if this is cancer even if it is early and likely curable. She states she would never treat a cancer in any way. 40 minutes spent reviewing history, counseling and documentat ion of today's patient visit. Pelvic mass [id number] R19 .00 Recommend Pelvic MRI to further characteri ze the mass identified on CT scan and confirmed by u/s today. The mass is 7.1 cm in maximal diameter. We suspect that this could be a penduculat ed fibroid although it cannot be confirmed. I discussed this with the patient today and recommende d MRI for comparisio n. Patient states she will think about getting MRI. Health Concerns Section Related Observation LastModified by Organization Detai ls LastModified Time None Recorded Concern Status LastModified by Organization Details LastModified Time None Recorded Advance Directives Directive None Recorded Payers Encounter Date Sequence Insurance Name Policy Number Policy Olvera Covered Member ID Olvera Member ID Guarantor Name 04/23/2022 1 [place] Camilla Valadez [id number] Camilla Valadez Notes Date Note Type Note Provider Name and Address Organization Details Recorded Time 04/23/2022 text/html Pelvic PainReported bypatient.Notes:Janice rea was referred today for an adnexal mass discovered on outside CT scan that was ordered by her vascular surgeon. She has not been willing to follow up until now. She has had a complicated couple of years due to her vascular disease. The patient reports that she is not symptomatic from this adnexal mass. Camilla new patient, referred due to ovarian cyst, U/S done today Oma Goodwin MD [facility] [place], [address], [facility] 04/24/2022 15:36:24 OBGyn Episode No OBEpisode recorded.
--- OUTSIDE RECORDS SUMMARY | 2024-09-24 15:07 | XMS_ITS | Clinical Summary ---
Author Organization [facility] Address [address] [place] [address] Care Team Providers Care Stock Controller Name Role Phone Roberto Ocasio Kristen THOMAS Primary Care Provider + Tyson Silverio MD Unavailable [phone] Allergies Active Allergy Reactions Criticality Noted Date Comments Nickel Rash Low 02/08/2020 Penicillins Rash Low 02/08/2020 Medications Multiple Vitamin (MULTIVITAMIN ADULT OR) Take 2 tablets by mouth daily. Active diphenhydrAMINE (BENADRYL) 25 MG capsule Take 1 capsule (25 mg total) by mouth every 6 (six) hours as needed for Allergies. Active fenofibrate 160 MG tabletIndications :Hyperlipidemia, unspecified hyperlipidemia type take 1 tablet by mouth every day 90 tablet 3 04/30/20 24 Active amLODIPine (NORVASC) 5 MG tabletIndications :Essential hypertension TAKE 1 TABLET BY MOUTH EVERY DAY 90 tablet 1 06/15/20 24 Active metoprolol tartrate (LOPRESSOR) 25 MG tablet TAKE 1 TABLET(25 MG) BY MOUTH TWICE DAILY 180 tablet 1 06/16/20 24 Active albuterol sulfate HFA 108 (90 Base) MCG/ACT inhaler Inhale 2 puffs into the lungs every 6 (six) hours as needed for Wheezing or Shortness of breath. 6.7 g 07/04/20 24 Active spironolactone (ALDACTONE) 25 MG tablet TAKE 1 TABLET(25 MG) BY MOUTH DAILY 90 tablet 1 07/08/20 24 Active Fluticasone-Umecl idin-Vilant (TRELEGY ELLIPTA) 100-62.5-25 MCG/ACT AEROSOL POWDER, BREATH ACTIVATEDIndicati ons:Chronic obstructive pulmonary disease, unspecified COPD type ([facility]) Inhale 1 puff into the lungs daily. 60 each 2 07/15/20 24 Active cyanocobalamin (B-12) 1000 MCG/ML injectionIndicati ons:B12 deficiency INJECT 1 ML ONCE A MONTH 3 mL 3 07/29/19 25 Active SYRINGE-NEEDLE, DISP, 3 ML (B-D 3CC LUER-EDNA SYR 25GX1 ) 25G X 1 3 ML MiscIndications:B 12 deficiency USE ONCE A MONTHLY DIRECTED 3 each 3 07/29/19 25 Active gabapentin (NEURONTIN) 100 MG capsuleIndication s:Phantom pain after amputation of lower extremity ([facility]) TAKE 1 CAPSULE(100 MG) BY MOUTH EVERY NIGHT AT BEDTIME 90 capsule 08/13/19 25 Active rivaroxaban (XARELTO) 10 MG Tab tabletIndications :History of DVT (deep vein thrombosis),PAD (peripheral artery disease) TAKE 1 TABLET(10 MG) BY MOUTH DAILY WITH EVENING MEAL 90 tablet 1 08/25/19 25 Active magnesium oxide (MAG-OX) 400 (240 Mg) MG tabletIndications :Hypomagnesemia TAKE 2 TABLETS(800 MG) BY MOUTH DAILY 90 tablet 1 08/31/19 25 Active magnesium oxide (MAG-OX) 400 MG tabletIndications :Hypomagnesemia Take 2 tablets (800 mg total) by mouth daily. 90 tablet 06/15/20 24 025 Discontinued Active Problems Problem Noted Date Diagnosed Date CHF exacerbation ([facility]) 07/01/2024 Adenomatous polyp of ascending colon 09/23/2023 Positive colorectal cancer screening using Colog uard test 05/26/2023 Overview (05/26/2023): Added automatically from request for surgery Chronic heart failure with p reserved ejection fraction ([facility]) 01/03/2023 Amputation of toe of left foot 10/03/2022 History of transmetatarsal a mputation of right foot ([facility]) 10/03/2022 Type 2 diabetes mellitus wit h diabetic polyneuropathy, without long-term current use of insulin ([facility]) 12/25/2021 Acute blood loss anemia 10/03/2020 Overview (12/20/2021): Last Assessment & Plan: - Transfused x1 unit 10/03 for hgb 7.5 - Monitor CBC and for signs and symptoms of bleeding Adnexal mass 09/26/2020 Overview (12/20/2021): Last Assessment & Plan: - CTA incidental finding left adnexal mass measuring 5.2 cm. - Recommend follow up in 1 month with ultrasound PAD (peripheral artery disease) 09/25/2020 Overview (12/20/2021): Last Assessment & Plan: - Continue aspirin, [...] miralax dana, dulcolax suppository prn - OR 3/12 for redo right groin and BK pop [...] - OOB TID - Continue aspirin, statin B12 deficiency 09/25/2020 Overview (12/20/2021): On home B12 1,000 mcg/ml injections. - Continue home B12 Last Assessment & Plan: On home B12 injections once monthly. Last had an injection several days prior to admission. - CTM Constipation 09/25/2020 Overview (12/20/2021): On home pericolace 8.6-50 mg BID prn. - Continue home pericolace Environmental allergies 09/25/2020 Overview (12/20/2021): Last Assessment & Plan: On home benadryl 25 mg QID prn. - Continue home benadryl Aftercare following surgery of the circulatory s ystem 08/17/2020 Leukocytosis 07/27/2020 Overview (12/20/2021): Last Assessment & Plan: - WBC increased yesterday. Stable this am. T max 38 overnight - C. Diff negative 07/27 - Check blood cultures per ID - Check UA, CXR Wound of left groin 07/18/2020 Overview (12/20/2021): Last Assessment & Plan: On home collagenase 250 unit/gram BID. - Continue home collagenase UTI (urinary tract infection) 07/06/2020 Overview (12/20/2021): Last Assessment & Plan: - Endorsed urinary hesitancy, UA checked with culture growing E. Coli - Susceptible to cefazolin, as above Tachycardia 06/30/2020 Overview (12/20/2021): Last Assessment & Plan: Persistent throughout hospitalization, volume status euvolemic postoperatively. Was on IVP metoprolol in ICU -Transition to PO metoprolol as she is tolerating full diet. Sacral insufficiency fracture 06/25/2020 Overview (12/20/2021): Last Assessment & Plan: - Found on CTA, repeat CT with chronic/subacute right sacral ala insufficiency fracture with no acute fractures noted of the pelvis or proximal femurs - Consulted Orthopedics, non-operative management at this time. - Should follow up in [facility], ambulatory referral has been placed Candidal intertrigo 06/24/2020 Overview (12/20/2021): Last Assessment & Plan: - Miconazole powder per ID - Keep area clean and dry Therapeutic drug monitoring 06/23/2020 Overview (12/20/2021): Last Assessment & Plan: CBC with diff, CMP weekly. BMI 20.0-20.9, adult 02/08/2020 Essential hypertension 02/08/2020 Hyperlipidemia, unspecified hyperlipidemia type 02/08/2020 Primary insomnia 02/08/2020 Tobacco use disorder, mild, in early remission 0 02/08/2020 Risk for falls 02/08/2020 Resolved Problems Problem Noted Date Diagnosed Date Resolved Date Pressure injury of right erasmo l, stage 2 ([facility]/HCC HHS/HCC) 07/19/2020 12/25/2021 Overview (12/20/2021): Last Assessment & Plan: - Present on admission - Offload with elizabeth boots when in bed - No weight bearing restrictions - Podiatry recommends Allevyn foam dressing change every other day - Betadine paint BID Acute DVT (deep venous throm bosis) ([facility]) 07/02/2020 12/25/2021 Overview (12/20/2021): Last Assessment & Plan: H/o L femoral endarterectomy and profundaplasty, L [...] heparin gtt - ASA 81 mg daily Osteomyelitis ([facility]) 06/21/2020 12/25/2021 Overview (12/20/2021): Added automatically from request for surgery [id number] Last Assessment & Plan: - Continue Daptomycin 350mg IV daily until [...] is >5x the upper limit of normal. Phantom pain after amputatio n of lower extremity ([facility]) 02/08/2020 12/25/2021 Encounters Date Type Department Care Team Description 09/15/2024 2:22 PM MANAGER CARDIAC - 09/15/2024 11:59 PM MANAGER CARDIAC Hospital Encounter [facility] Cardiopulmonary Services [address] [place] [address] Roberto Ocasio, DO Discharge Disposition: Home or Self Care (Routine Discharge) 09/15/2024 Scan ACell INFO SRVCS Scanned, Doc [facility] Procedure (SCAN) 09/15/2024 Travel 08/26/2024 9:20 AM MANAGER CARDIAC Allied Health/Nurse Visit [facility] Family Internal [address] [address] Roberto Ocasio, Allied Health Visit (Wound check) 08/26/2024 7:20 AM MANAGER CARDIAC Laboratory Only [facility] Internal [address] [address] Roberto Ocasio, DO 08/26/2024 Travel 08/24/2024 Telephone [facility] Internal [address] [phone] Roberto Ocasio, DO Results 08/19/2024 9:20 AM MANAGER CARDIAC Office Visit [facility] Internal [address] [address] Roberto Ocasio, DO ER F/U (Patient had a fall the of this month. Went to [facility] by ems. Pt is concerned about changes in wound. Patient states they are worsening. ); CHF (Pt presents for 1 mo follow up. ) 08/19/2024 Travel 08/04/2024 10:21 PM MANAGER CARDIAC - 08/05/2024 6:19 AM MANAGER CARDIAC Emergency [facility] Emergency Room [address] [place] [address] Henry Narayanan MD Fall Discharge Disposition: Home or Self Care (Routine Discharge) 08/04/2024 Travel 08/02/2024 Telephone [facility], [address] [address] Irais Kang FNP Follow Up 07/30/2024 Telephone [facility] Med/Surg [address] [place], [place] [phone] Zuleyma Paredes RN Follow Up Call 07/29/2024 Telephone [facility] Internal [address] [phone] Roberto Ocasio, DO Information 07/27/2024 Scan Yumit INFO SRVCS Scanned, [facility] 07/26/[address] [phone] Roberto Ocasio, DO DME Orders (SCAN) 07/26/2024 Patient Outreach [facility] Internal [address] [phone] Elisa Hobbs, RN Hospital Follow Up (Tcm #1) 07/22/2024 11:00 AM MANAGER CARDIAC Office Visit [facility] [address] [place] [phone] Irais Kang FNP CHF (Hospital Follow up) 07/15/2024 1:40 PM MANAGER CARDIAC Office Visit [facility] Internal [address] [phone] Roberto Ocasio, DO TCM (The patient was admitted at [facility] in for CHF excerebration. She she is feeling much better. ) 07/15/2024 Travel 07/07/2024 Hospital Follow-up Call [facility] Care Management [address] [place], [place] [phone] Emili Constantino RN Hospital Follow Up (07/01/2024 - 07/04/2024 (3 days)/[facility]///) 07/05/2024 Telephone [facility] Family & Internal [address] [phone] Roberto Ocasio, Information 07/05/2024 Patient Outreach [address] [phone] Elisa Hobbs RN TCM ([facility] 07/01-07/04 ) 07/04/2024 Scan ACell INFO SRVCS Scanned, Doc [facility] 07/02/2024 Patient Outreach [facility] Family Internal [address] [phone] Elisa Hobbs RN Hospital Follow Up 07/01/2024 3:13 PM MANAGER CARDIAC - 07/04/2024 2:00 PM MANAGER CARDIAC Hospital Encounter [facility] Med/Surg [address] [place], [place] [phone] Jaswinder Mead MD Crawford, MD Kareen Mello, Lilly Lim, ROBOT OPERATOR Edema Discharge Disposition: Home or Self Care (Routine Discharge) 07/01/2024 Travel from Last 3 Months Immunizations Name Administration Dates Next Due Abrysvo Respiratory Syncytia l Virus (RSV) 0.5 mL, PF 06/01/2024 COVID-19 Vaccine (Generic) 06/01/2024 Fluzone High Dose (IIV, trivalent, 0.5mL) 2023 Fluzone High Dose - >Age 65 (Prefilled Syringe) 04/24/2023,04/09/2022,04/08/2021 Influenza Adult (Generic) 04/08/2020 PFIZER COVID-19 (ORIGINAL FO RMULATION, PURPLE CAP) mRNA, LNP-S, PF, 30 MCG/0.3 ML DOSE 07/09/2021,09/06/2020,08/16/2020 PFIZER COVID-19 BIVALENT (12 +) mRNA, LNP-S, PF, 30 MCG/0.3 ML DOSE 04/09/2022 Pneumococcal (Prevnar 20) 12/25/2021 Shingrix 08/17/2021,04/15/2021 Td, Adsorbed, Preservative F ree, Adult Use, Lf Unspecified 04/21/2024 Family History Medical History Relation Comments ehler-mikes Daughter Heart Disease Father Diabetes Paternal Grandmother Relation Status Comments Daughter Father (Age 61) Mother Paternal Grandmother Social History Tobacco Use Types Packs/Day Years Used Date Smoking Tobacco: Former Cigarettes 0.5 40 0 09/19/1979 - 09/19/2019 Passive Smoke Exposure: Never Smokeless Tobacco: Never Tobacco Cessation:Counseling Given: No Alcohol Use Standard Drinks/Week Comments Yes 3 (1 standard drink = 0.6 oz pur e alcohol) Daily LineaQuattro Answer Date Recorded In the past 12 months has e [employer], gas, oil, or water QoL Meds threatened to shut off services in your [...] place to sleep or slept in a detention (including now)? No 11/22/2022 Housing Stability Vital Sign Answer Gerry e Recorded In the last 12 months, was t here a time when you were not able to pay the mortgage or rent on time? No 07/01/2024 In the past 12 months, how m any times have you moved where you were living? 0 07/01/2024 At any time in the past 12 m [facility], were you homeless or living in a detention (including now)? No 07/01/2024 Comments No Sex and Gender Information Value Date Recorded Sex Assigned at Female 07/15/2024 1:40 PM MANAGER CARDIAC Legal Sex Female 8:03 PM CDT Gender Identity Female 07/15/2024 1:40 PM MANAGER CARDIAC Sexual Orientation Not on file Last Filed Vital Signs Vital Sign Reading Time Taken Comments Blood Pressure 112/62 08/19/2024 9:37 AM MANAGER CARDIAC Pulse 71 08/19/2024 9:37 AM MANAGER CARDIAC Temperature 36.6 C (97.9 F) 08/19/2024 9:37 AM MANAGER CARDIAC Respiratory Rate 16 08/19/2024 9:37 AM MANAGER CARDIAC Oxygen Saturation 92% 08/19/2024 9:37 AM MANAGER CARDIAC Inhaled Oxygen Concentration - - Weight 69.9 kg (154 lb) 08/19/2024 9:37 AM MANAGER CARDIAC Height 167.6 cm (5' 6 ) 08/19/2024 9:37 AM MANAGER CARDIAC Body Mass Index 24.86 08/19/2024 9:37 AM MANAGER CARDIAC Plan of Treatment Upcoming Encounters Date Type Department Care Team (Late st Contact Info) Description 10/18/2024 11:20 AM CDT Office Visit [facility] Family & Internal Medicine [id number] [place] [address] Roberto Ocasio DO [address] [place] [address] 11/04/2024 10:45 AM CDT Office Visit [facility] [address] [phone] Tyson Silverio MD [facility]. [facility] [address] [place] [address] 12/02/2024 11:30 AM CDT Office Visit [facility] [address] [phone] Irais Kang FNP 3 [facility] [address] [place] [address] 12/09/2024 10:20 AM CDT Office Visit [facility] Family & Internal [id number] [place] [address] Roberto Ocasio DO [address] [place] [address] Health Maintenance Due Date Last Done Comments ASCVD Statin 1950 Annual Medicare Wellness Visit 2013 Lipid Panel 10/08/2024 10/09/2023, 09/18, 12/25/2021, Additional history exists Kidney Health Evaluation 11/27/2024 11/28/2023 Hemoglobin A1C 12/08/2024 06/10/2024, 08/2 07/2023, 10/09/2023, Additional history exists Dexa Scan (General) 01/18/2025 Postpone d from 2013 (Patient Refused) Lung Cancer Screening 06/10/2025 11/25/2022 Postpo emre from 11/26/2023 (Patient Refused) DTaP, Tdap and Td Vaccines (1 - Tdap) 07/15/2025 04/21/2024 Postponed from 04/22/2024 (No Insurance Coverage) Diabetes: Retinopathy Eye Exam 06/24/2026 06/24/2024 Zoster Vaccines Completed 08/17/2021, 04/15/2021 Pneumococcal Vaccine: 65+ Years Completed 12/25/2021 Hepatitis C Completed 10/03/2022 Colorectal Cancer Screening FIT-DNA (3 Years) Discontinued 05/03/2023, 05/03/2023, 03/13/2020, Additional history exists Colorectal Cancer Screening Colonoscopy (10 Years) Discontinued 10/28/2023, 10/28/2023, 07/11/2023, Additional history exists Influenza Adult Completed 04/21/2024, 11/2022, 04/09/2022, Additional history exists COVID-19 Vaccine Completed 06/01/2024, 06/2024, 04/24/2023, Additional history exists RSV Immunization or 60+ Years Completed 06/01/2024 PHQ-2 (Physician [place]) Completed 08/19/2024 Meningococcal B Vaccine Aged Out No l onger eligible based on patient's age to complete this topic Meningococcal Vaccine Aged Out No duane blayne eligible based on patient's age to complete this topic RSV Immunizations Under 20 Months Aged Out No longer eligible based on patient's age to complete this topic Medical Devices Implanted Type Area Real Estate Legal Assistant Device Identifier Shelf Expiration Date Model / Serial / Lot Resolution 3601 Ultra Clip Implanted:Qty: 2 on 07/11/2023 by Ricardo Yost DO at [facility] N/A: Colon [id number] 01/26/2026 / / [id number] Description:Ascending colon Procedures Procedure Name Priority Date/Time Associated Diagnosis Comments PULMONARY FUNCTION TEST Routine 09/15/2024 2:30 PM MANAGER CARDIAC Chronic obstructive pulmonary disease, unspecified COPD type ([facility]/HCC [facility]/HCC) PULMONARY GENERIC 09/15/2024 COLLECTION VENOUS BLOOD VENIPUNCTURE Routine 08/26/2024 9:03 AM MANAGER CARDIAC Hyponatremia BASIC METABOLIC PANEL Routine 08/26/2024 9:03 AM MANAGER CARDIAC Hyponatremia BASIC METABOLIC PANEL Routine 08/19/2024 10:25 AM MANAGER CARDIAC Hypokalemia MAGNESIUM Routine 08/19/2024 10:25 AM MANAGER CARDIAC Hypokalemia COLLECTION VENOUS BLOOD VENIPUNCTURE Routine 08/19/2024 10:00 AM MANAGER CARDIAC Hypokalemia XR HAND LT 3V STAT 08/04/2024 11:17 PM MANAGER CARDIAC XR CHEST PORTABLE STAT 08/04/2024 11: [address] HEAD WO CON STAT 08/04/2024 11:17 PM MANAGER CARDIAC ECG 12-LEAD Routine 08/04/2024 10:50 PM MANAGER CARDIAC PRO-BRAIN NATRIURETIC PEPTIDE STAT 08/04/2024 10:35 PM MANAGER CARDIAC TROPONIN, QUANT STAT 08/04/2024 10:35 PM MANAGER CARDIAC COMPREHENSIVE METABOLIC PANEL STAT 08/04/2024 10:35 PM MANAGER CARDIAC CBC W/DIFF AUTOMATED STAT 08/04/2024 10:35 PM MANAGER CARDIAC MAGNESIUM Routine 07/10/2024 10:54 AM MANAGER CARDIAC Hypomagnesemia BASIC METABOLIC PANEL Routine 07/10/2024 10:54 AM MANAGER CARDIAC Hypomagnesemia HOME O2 EVAL Routine 07/04/2024 9:54 AM MANAGER CARDIAC COMPREHENSIVE METABOLIC PANEL Routine 07/04/2024 7:26 AM MANAGER CARDIAC CBC W/DIFF AUTOMATED Routine 07/04/2024 7:26 AM MANAGER CARDIAC BASIC METABOLIC PANEL TIMED 07/03/2024 1:42 PM MANAGER CARDIAC COMPREHENSIVE METABOLIC PANEL Routine 07/03/2024 7:13 AM MANAGER CARDIAC CBC W/DIFF AUTOMATED Routine 07/03/2024 7:13 AM MANAGER CARDIAC POCT GLUCOSE - GUERRA DOCKED DEVICE Routine 07/02/2024 7:54 AM MANAGER CARDIAC MAGNESIUM Routine 07/02/2024 6:41 AM MANAGER CARDIAC COMPREHENSIVE METABOLIC PANEL Routine 07/02/2024 6:41 AM MANAGER CARDIAC CBC W/DIFF AUTOMATED Routine 07/02/2024 6:41 AM MANAGER CARDIAC TROPONIN, QUANT STAT 07/01/2024 6:38 PM MANAGER CARDIAC CTA CHEST PE PROTOCOL STAT 07/01/2024 4:30 PM MANAGER CARDIAC CORONAVIRUS (COVID 19) STAT 07/01/2024 3:54 PM MANAGER CARDIAC INFLUENZA A & B STAT 07/01/2024 3:54 PM MANAGER CARDIAC ECG 12-LEAD Routine 07/01/2024 3:36 PM MANAGER CARDIAC MAGNESIUM STAT 07/01/2024 3:36 PM MANAGER CARDIAC PRO-BRAIN NATRIURETIC PEPTIDE STAT 07/01/2024 3:36 PM MANAGER CARDIAC LACTIC ACID W REFLEX (SEPSIS) STAT 07/01/2024 3:36 PM MANAGER CARDIAC TROPONIN, QUANT STAT 07/01/2024 3:36 PM MANAGER CARDIAC COMPREHENSIVE METABOLIC PANEL STAT 07/01/2024 3:36 PM MANAGER CARDIAC CBC W/DIFF AUTOMATED STAT 07/01/2024 3:36 PM MANAGER CARDIAC DIABETIC RETINOPATHY EXAM (NEGATIVE)(SCAN ORDER) Routine 06/24/2024 HEMOGLOBIN, GLYCOSYLATED Routine 06/10/2024 Type 2 diabetes mellitus with diabetic polyneuropathy, without long-term current use of insulin ([facility] HHS/HCC) COLONOSCOPY GENERIC (SCAN ORDER) 10/28/2023 LIPID PANEL Routine 10/09/2023 11:41 AM CDT Type 2 diabetes mellitus with diabetic polyneuropathy, without long-term current use of insulin ([facility] HHS/HCC) B12 deficiency Essential hypertension Chronic heart failure with preserved ejection fraction ([facility]) Hyperlipidemia, unspecified hyperlipidemia type COLOGUARD (EXACT SCIENCE) Routine 05/03/2023 1:30 AM CDT Screening for malignant neoplasm of colon CT CHEST WO CON Today 11/25/2022 2:34 PM CDT HEPATITIS C ANTIBODY Routine 10/03/2022 6:49 PM CDT Need for hepatitis C screening test from Last 3 Months or Most Recently Relevant to Health Maintenance Results * Complete PFT (pre/post Niraj, Lung Vol, Diff Capacity) ([id number], 11302, [id number], [id number]) (09/15/2024 2:30 PM MANAGER CARDIAC) Narrative [facility] - 09/15/2024 2:30 PM MANAGER CARDIAC Paddy Guido DO 09/19/2024 7:23 PM [facility] PULMONARY FUNCTION TEST REPORT Mouna Michelle Barkley INTERPRETATION Please see attached scanned PFT report for raw values and technologist's comments. SPIROMETRY: Forced vital capacity (in liters): Pre-bronchodilator: 36,47% Post-bronchodilator: 1.41,48% FEV1: (in liters) Pre-bronchodilator: 0.83,41% Post-bronchodilator: 0.86,42% FEV1/FVC ratio: 61 % There is no significant response to bronchodilator administration. Inspection of the patient's flow-volume loops shows scooping of the expiratory limb LUNG VOLUMES: TLC is 58 % RV is 75 % DLCO: cDLCO 32 % 6mwt / O2 titration: not performed. IMPRESSION: 1. Combined restriction and obstruction is present, FEV1 0.86L, 42%. 2. There was no bronchodilator response during the test, this does not preclude use of bronchodilator therapy, clinical correlation advised. 3. Uncorrected DLCO was severely reduced. Dr. Anatoliy Guido [facility] Pulmonary Medicine Roberto Ocasio DO PFT ORDERABLES Final Re sult [facility] [address] [place] [address], [place] [phone] * PULMONARY GENERIC (09/15/2024) 09/15/2024 us Doc [facility] Scanned SCANNING Final Resu lt * (ABNORMAL) BASIC METABOLIC PANEL (08/26/2024 9:03 AM MANAGER CARDIAC) Only the most recent of4 resultswithin the time period is included. SODIUM S/P/B 133(L) 136 - 145 MMOL/L 08/26/2024 2:42 PM MANAGER CARDIAC [facility] POTASSIUM S/P/B 3.9 3.5 - 5.1 MMOL/L 08/26/2024 2:42 PM MANAGER CARDIAC [facility] CHLORIDE S/P/B 95(L) 98 - 107 MMOL/L 08/26/2024 2:42 PM MANAGER CARDIAC [facility] CO2 30.1 21 - 32 MMOL/L 08/26/2024 3:08 PM MANAGER CARDIAC [facility] Comment:RESULT CHECKED GLUCOSE 118(H) 70 - 99 MG/DL 08/26/2024 2:42 PM MANAGER CARDIAC [facility] BUN 18 7 - 18 MG/DL 08/26/2024 2:42 PM [facility] CREATININE S/P/B 1.00 0.55 - 1.02 MG/DL 08/26/2024 2:42 PM [facility] CALCIUM S/P/B 9.3 8.4 - 10.5 MG/DL 08/26/2024 2:42 PM MANAGER CARDIAC [facility] ANION GAP 7.9 5 - 15 MMOL/L 08/26/2024 3:08 PM MANAGER CARDIAC [facility] Comment:REFERENCE RANGE NOT ESTABLISHED OSMOLALITY (CALC) 279 MOSM/KG 025 2:42 PM [facility] Comment:REFERENCE RANGE NOT ESTABLISHED GFR ESTIMATE 58(L) >90 ML/MIN/1. 73 M2 08/26/2024 2:42 PM MANAGER CARDIAC [facility] GFR NOTES GFR REFERENCE S: 08/26/2024 2:42 PM MANAGER CARDIAC [facility] Comment: THE ESTIMATED GFR IS CALCULATED USING THE 2020 CKD-EPI EQUATION. THE FOLLOWING CATEGORIES FOR GRADING RENAL FUNCTION ARE RECOMMENDED BY THE INTERNATIONAL SOCIETY OF NEPHROLOGY (KDIGO 2012 CLINICAL PRACTICE GUIDELINE). G1,NORMAL OR HIGH: >89 ml/min/1.73 m2 G2,MILDLY DECREASED: 60-89 ml/min/1.73 m2 G3A,MILDLY TO MODERATELY DECREASED: 45-59 ml/min/1.73 m2 G3B,MODERATELY TO SEVERELY DECREASED: 30-44 ml/min/1.73 m2 G4,SEVERELY DECREASED: 15-29 ml/min/1.73 m2 G5,KIDNEY FAILURE: <15 ml/min/1.73 m2 08/26/2024 9:03 AM MANAGER CARDIAC us Roberto Ocasio DO LABORATORY Final Re sult [facility] [place] [address] [place] [address], * MAGNESIUM (08/19/2024 10:25 AM MANAGER CARDIAC) Only the most recent of4 resultswithin the time period is included. MAGNESIUM 1.9 1.8 - 2.4 MG/DL 08/19/2024 3:21 PM MANAGER CARDIAC [facility] 08/19/2024 10:2 5 AM MANAGER CARDIAC Roberto Ocasio DO LABORATORY Final Re sult [facility] NANCY, [place] [place] [address], * XR HAND LT 3V (08/04/2024 11:17 PM MANAGER CARDIAC) Anatomical Region Laterality Modality Hand Radiographic Genet ging 08/05/2024 12:3 9 AM MANAGER CARDIAC Impressions 08/05/2024 1:37 AM MANAGER CARDIAC IMPRESSION: 1. DORSAL SOFT TISSUE SWELLING. NO SOFT TISSUE GAS OR RADIOPAQUE FOREIGN BODY. 2. NO EVIDENCE OF ACUTE FRACTURE IS DEMONSTRATED. Signed: Estuardo Vazquez MD Referred By: Interpreted By: Estuardo Vazquez MD, 08/05/2024 12:39 AM Narrative 08/05/2024 1:37 AM MANAGER CARDIAC [facility] [address] [place] [address] PATIENT NAME: MOUNA BARKLEY EXAM: Left hand 3 view DATE OF EXAM: 08/04/2024 COMPARISON EXAM: None INDICATION: Trauma TECHNIQUE: AP, lateral and oblique left hand FINDINGS: Prominent soft tissue swelling over the dorsum of the hand. No soft tissue gas or radiopaque foreign body. There is no definite evidence of acute fracture. Alignment at the MTP joints is somewhat obscured on the lateral view with suggestion of possible subluxation or dislocation, however there is no corresponding abnormality on the AP and oblique view. This was discussed with the emergency room physician and the patient is asymptomatic at the MCP joint level suggesting that this is projectional. Procedure Note Estuardo Vazquez MD - 08/05/2024 [facility] [address] [place] [address] PATIENT NAME: MOUNA BARKLEY EXAM: Left hand 3 view DATE OF EXAM: 08/04/2024 COMPARISON EXAM: None INDICATION: Trauma TECHNIQUE: AP, lateral and oblique left hand FINDINGS: Prominent soft tissue swelling over the dorsum of the hand. Nosoft tissue gas or radiopaque foreign body. There is no definite evidenceof acute fracture. Alignment at the MTP joints is somewhat obscured onthe lateral view with suggestion of possible subluxation or dislocation,however there is no corresponding abnormality on the AP and oblique view.This was discussed with the emergency room physician and the patient isasymptomatic at the MCP joint level suggesting that this isprojectional. IMPRESSION: 1. DORSAL SOFT TISSUE SWELLING. NO SOFT TISSUE GAS OR RADIOPAQUE FOREIGNBODY. 2. NO EVIDENCE OF ACUTE FRACTURE IS DEMONSTRATED. Signed: Estuarod Vazquez MD Referred By: Interpreted By: Estuardo Vazquez MD, 08/05/2024 12:39 AM Henry Narayanan MD GENERAL IMAGING Final Result * XR CHEST PORTABLE (08/04/2024 11:17 PM MANAGER CARDIAC) Anatomical Region Laterality Modality Chest Radiographic Genet ging 08/04/2024 11:3 2 PM MANAGER CARDIAC Impressions 08/04/2024 11:36 PM MANAGER CARDIAC IMPRESSION: 1. Stable cardiomegaly. 2. Left basilar opacities, likely attributed to atelectasis or pleural effusion. 3. Large hiatal hernia. Referred By: Interpreted By: Talha Toribio MD, 08/04/2024 11:32 PM Narrative 08/04/2024 11:36 PM MANAGER CARDIAC [facility] [address] [place] [address] EXAMINATION: XR CHEST PORTABLE HISTORY: Fall. COMPARISON: Radiographs November 22, 2022. CT July 01, 2024. TECHNIQUE: AP image of the chest. FINDINGS: Stable moderate cardiomegaly. Atherosclerotic calcifications of the thoracic aorta noted. Left basilar opacities are present and appears to prior, likely attributed to atelectasis or pleural effusion. No vascular congestion is seen. Retrocardiac opacity consistent with the large hiatal hernia seen on prior CT imaging. No pneumothorax. Procedure Note Talha Toribio MD - 08/04/2024 [facility] [address] [place] [address] EXAMINATION: XR CHEST PORTABLE HISTORY: Fall. COMPARISON: Radiographs November 22, 2022. CT July 01, 2024. TECHNIQUE: AP image of the chest. FINDINGS: Stable moderate cardiomegaly. Atherosclerotic calcifications of thethoracic aorta noted. Left basilar opacities are present and appears toprior, likely attributed to atelectasis or pleural effusion. No vascularcongestion is seen. Retrocardiac opacity consistent with the large hiatalhernia seen on prior CT imaging. No pneumothorax. IMPRESSION: 1. Stable cardiomegaly. 2. Left basilar opacities, likely attributed to atelectasis or pleuraleffusion. 3. Large hiatal hernia. Referred By: Interpreted By: Talha Toribio MD, 08/04/2024 11:32 PM Henry Narayanan MD GENERAL IMAGING Final Result * CT HEAD WO CON (08/04/2024 11:17 PM MANAGER CARDIAC) Anatomical Region Laterality Modality Head Computed Tomogra phy 08/04/2024 11:4 9 PM MANAGER CARDIAC Impressions 08/04/2024 11:52 PM MANAGER CARDIAC IMPRESSION: 1. NO ACUTE INTRACRANIAL ABNORMALITY. 2. LEFT FRONTAL SUBCUTANEOUS HEMATOMA. NO EVIDENCE OF ACUTE DEPRESSED SKULL FRACTURE. Signed: Estuardo Vazquez MD Referred By: Interpreted By: Estuardo Vazquez MD, 08/04/2024 11:49 PM Narrative 08/04/2024 11:52 PM MANAGER CARDIAC [facility] [address] [place] [address] PATIENT NAME: MOUNA BARKLEY EXAM: CT head without contrast DATE OF EXAM: 08/04/2024 COMPARISON EXAM: None INDICATION: Trauma, left frontal hematoma TECHNIQUE: Axial images obtained from level of foramen magnum to the vertex without contrast using low-dose CT technique. Sagittal and coronal reconstruction. FINDINGS: There is a normal craniovertebral junction. Ventricles are normal in size morphology. Extra-axial CSF spaces are within normal limits for the patient's age. There is no evidence of acute intracranial hemorrhage. Atherosclerotic vascular calcifications are noted involving the [place]. No evidence of focal intracranial mass lesion. No abnormal extra-axial fluid collection. There is no acute regional edema, mass effect nor midline shift. The sella and CP angle regions are unremarkable. Mastoid air cells are clear bilaterally. Visualized paranasal sinuses are clear. There is a prominent left frontal subcutaneous hematoma. There is no evidence of associated acute depressed skull fracture. Procedure Note Estuardo Vazquez MD - 08/04/2024 [facility] [address] [place] [address] PATIENT NAME: MOUNA BARKLEY EXAM: CT head without contrast DATE OF EXAM: 08/04/2024 COMPARISON EXAM: None INDICATION: Trauma, left frontal hematoma TECHNIQUE: Axial images obtained from level of foramen magnum to thevertex without contrast using low-dose CT technique. Sagittal and coronalreconstruction. FINDINGS: There is a normal craniovertebral junction. Ventricles arenormal in size morphology. Extra-axial CSF spaces are within normallimits for the patient's age. There is no evidence of acute intracranialhemorrhage. Atherosclerotic vascular calcifications are noted involvingthe [place] of [place]. No evidence of focal intracranial mass lesion. No abnormal extra-axialfluid collection. There is no acute regional edema, mass effect normidline shift. The sella and CP angle regions are unremarkable. Mastoidair cells are clear bilaterally. Visualized paranasal sinuses are clear.There is a prominent left frontal subcutaneous hematoma. There is noevidence of associated acute depressed skull fracture. IMPRESSION: 1. NO ACUTE INTRACRANIAL ABNORMALITY. 2. LEFT FRONTAL SUBCUTANEOUS HEMATOMA. NO EVIDENCE OF ACUTE DEPRESSEDSKULL FRACTURE. Signed: Estuardo Vazquez MD Referred By: Interpreted By: Estuardo Vazquez MD, 08/04/2024 11:49 PM us Henry Narayanan MD CT Final Result * ECG 12 lead (08/04/2024 10:50 PM MANAGER CARDIAC) Only the most recent of2 resultswithin the time period is included. 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: : 1950 Requested By: HENRY NARAYANAN Order Number: [id number] Reading MD: Dimitrios Winslow Measurements Intervals [place] Rate: 74 P: 17 WI: 213 QRS: -80 QRSD: 148 T: -33 QT: 436 QTc: 485 Interpretive Statements SINUS RHYTHM WITH FIRST DEGREE AV BLOCK WITH FREQUENT SUPRAVENTRICULAR PREMATURE COMPLEXES LEFT ATRIAL ENLARGEMENT [-0.15mV P-WAVE IN V1/V2] INDETERMINATE AXIS RIGHT BUNDLE BRANCH BLOCK [120+ ms QRS DURATION, UPRIGHT V1, 40+ ms S IN I/aVL/V4/V5/V6] MODERATE T-WAVE ABNORMALITY, CONSIDER ANTEROLATERAL ISCHEMIA [-0.1+ mV T-WAVE IN V3-V6] MODERATE T-WAVE ABNORMALITY, CONSIDER INFERIOR ISCHEMIA [-0.1+ mV T-WAVE IN II/aVF] Compared to ECG 07/01/2024 15:36:32 First degree AV block now present Left anterior fascicular block no longer present T-wave abnormality still present Possible ischemia still present GER CARDIAC Procedure Note Dimitrios Winslow MD - 08/05/2024 [facility] Test Date: 2024-08-04 Pat Name: MOUNA BARKLEY Department: 85 Room: EXAM 101 Gender: Female Handwriting Expert: : 1950 Requested By: HENRY NARAYANAN Order Number: [id number] Reading MD: Dimitrios Winslow Measurements Intervals [place] Rate: 74 P: 17 WI: 213 QRS: -80 QRSD: 148 T: -33 QT: 436 QTc: 485 Interpretive Statements SINUS RHYTHM WITH FIRST DEGREE AV BLOCK WITH FREQUENT SUPRAVENTRICULAR PREMATURE COMPLEXES LEFT ATRIAL ENLARGEMENT [-0.15mV P-WAVE IN V1/V2] INDETERMINATE AXIS RIGHT BUNDLE BRANCH BLOCK [120+ ms QRS DURATION, UPRIGHT V1, 40+ ms SIN I/aVL/V4/V5/V6] MODERATE T-WAVE ABNORMALITY, CONSIDER ANTEROLATERAL ISCHEMIA [-0.1+ mV T-WAVE IN V3-V6] MODERATE T-WAVE ABNORMALITY, CONSIDER INFERIOR ISCHEMIA [-0.1+ mV T-WAVEIN II/aVF] Compared to ECG 07/01/2024 15:36:32 First degree AV block now present Left anterior fascicular block no longer present T-wave abnormality still present Possible ischemia still present GER CARDIAC us Henry Narayanan MD ECG ORDERABLES Final Result [facility] ([facility]) RAD * (ABNORMAL) PRO-BRAIN NATRIURETIC PEPTIDE (08/04/2024 10:35 PM MANAGER CARDIAC) Only the most recent of2 resultswithin the time period is included. Pathologist [facility] PRO-B TYPE NATRIURETIC PEPTIDE 2,458(H) <450 PG/ML 08/04/2024 11:[address] [facility] Comment: CUT POINTS ESTABLISHED BY [employer] ON NT PROBNP (ICON) STUDY (2006). AGE INDEPENDENT: <300 PG/ML HAS A 99% NEGATIVE PREDICTIVE VALUE FOR EXCLUDING ACUTE CHF <50 YEARS: >450 PG/ML IS CONSISTENT WITH ACUTE CHF 50-75 YEARS: >900 PG/ML IS CONSISTENT WITH ACUTE CHF >75 YEARS: >1800 PG/ML IS CONSISTENT WITH ACUTE CHF IN PATIENTS WITH RENAL INSUFFICIENCY (GFR <60), >1200 PG/ML YIELDS A DIAGNOSTIC SENSITIVITY AND SPECIFICITY OF 89% AND 72% FOR ACUTE CHF. 08/04/2024 10:3 5 PM MANAGER CARDIAC us Henry Narayanan MD LABORATORY Final Result [facility] [address] [place] [address], * (ABNORMAL) COMPREHENSIVE METABOLIC PANEL (08/04/2024 10:35 PM MANAGER CARDIAC) Only the most recent of5 resultswithin the time period is included. GLUCOSE 94 70 - 99 MG/DL 08/04/2024 11:16 PM [facility] BUN 18 7 - 18 MG/DL 08/04/2024 11:16 PM [facility] CREATININE S/P/B 1.07(H) 0.55 - 1.02 MG/DL 08/04/2024 11:16 PM [facility] SODIUM S/P/B 130(L) 136 - 145 MMOL/L 08/04/2024 11:16 PM [facility] POTASSIUM S/P/B 3.0(LL) 3.5 - 5.1 MMOL/L 08/04/2024 11:16 PM [facility] Comment: Critical Result(s) Called at: 23:12:17 on 08/04/2024 by: Amelia Almaraz to and read back by:Regine Chris RN CHLORIDE S/P/B 90(L) 100 - 108 MMOL/L 08/04/2024 11:16 PM [facility] CO2 29.6 21 - 32 MMOL/L 08/04/2024 11:16 PM [facility] CALCIUM S/P/B 9.4 8.5 - 10.1 MG/DL 08/04/2024 11:16 PM [facility] BILIRUBIN TOTAL S/P/B 0.4 0.2 - 1.2 MG/DL 08/04/2024 11:16 PM [facility] TOTAL PROTEIN S/P/B 7.3 6.4 - 8.2 G/DL 08/04/2024 11:16 PM [facility] ALBUMIN S/P/B 3.8 3.4 - 5.0 G/DL 08/04/2024 11:16 PM [facility] AST 16 15 - 37 U/L 08/04/2024 11:16 PM [facility] ALT 13(L) 14 - 55 U/L 08/04/2024 11:16 PM [facility] ALKALINE PHOSPHATASE S/P/B 74 50 - 136 U/L 08/04/2024 11:16 PM [facility] ANION GAP 10.4 5 - 15 MMOL/L 08/04/2024 11:16 PM [facility] BUN CREATININE RATIO 16.8 6 - 26 08/04/2024 11:16 PM [facility] A/G RATIO 1.1 1.0 - 2.0 RATIO 08/04/2024 11:16 PM [facility] GFR ESTIMATE 54(L) >90 ML/MIN/1.7 3 M2 08/04/2024 11:16 PM [facility] Comment: NOTE: eGFR is not calculated for patients <18 years of age. This is an estimated GFR calculation using the new CKD EPI creatinine equation without race and so does not require a correction factor for race. This estimated GFR should not be used for calculating drug doses. 08/04/2024 10:3 5 PM MANAGER CARDIAC Henry Narayanan MD LABORATORY Final Result [facility] [address] [place] [address], * (ABNORMAL) CBC W/DIFF AUTOMATED (08/04/2024 10:35 PM MANAGER CARDIAC) Only the most recent of5 resultswithin the time period is included. WBC 5.60 4.4 - 11.0 x10'3/uL 08/04/2024 10:47 PM [facility] RBC 4.54 4.50 - 5.10 x10'6/uL 08/04/2024 10:47 PM [facility] HGB 12.1(L) 12.3 - 15.3 G/DL 08/04/2024 10:47 PM [facility] HCT 37.4 35.9 - 44.6 % 08/04/2024 10:47 PM [facility] MCV 82.4 80.0 - 96.0 FL 08/04/2024 10:47 PM [facility] MCH 26.7 25.3 - 30.9 PG 08/04/2024 10:47 PM [facility] MCHC 32.4 31.0 - 34.1 G/DL 08/04/2024 10:47 PM [facility] RDW 15.6(H) 12.4 - 15.1 % 08/04/2024 10:47 PM [facility] PLT 239 151 - 353 x10'3/uL 08/04/2024 10:47 PM [facility] MPV 8.3(L) 9.6 - 12.0 FL 08/04/2024 10:47 PM [facility] RBC MORPHOLOGY NORMAL 08/04/2024 10:47 PM [facility] PLT MORPH. NORMAL 08/04/2024 10:[address] [facility] WBC MORPHOLOGY NORMAL 08/04/2024 10:47 PM [facility] LYMPHOCYTES % 16.4 15.8 - 45.0 % 08/04/2024 10:47 PM [facility] NEUTROPHILS % 66.8 42.1 - 71.9 % 08/04/2024 10:47 PM [facility] MONOCYTES % 13.6(H) 5.7 - 12.5 % 08/04/2024 10:47 PM [facility] EOSINOPHILS 2.1 0.0 - 5.6 % 08/04/2024 10:47 PM [facility] BASOPHILS 0.9 0.0 - 1.3 % 08/04/2024 10:47 PM [facility] ABS. NEUTROPHILS 3.74 1.40 - 6.00 x10'3/uL 08/04/2024 10:47 PM [facility] IMMATURE GRANS % 0.2 0.0 - 0.5 % 08/04/2024 10:47 PM [facility] ABS. LYMPHOCYTES 0.92 0.80 - 4.70 x10'3/uL 08/04/2024 10:47 PM [facility] 08/04/2024 10:3 5 PM MANAGER CARDIAC us Henry Narayanan MD LABORATORY Final Result [facility] [address] [place] [address], * TROPONIN, QUANT (08/04/2024 10:35 PM MANAGER CARDIAC) Only the most recent of3 resultswithin the time period is included. Pathologist [facility] TROPONIN I HIGH SENSITIVITY 15 0 - 50 ng/L 08/04/2024 11:[address] [facility] Comment: HIGH DOSES OF BIOTIN, TROPONIN-SPECIFIC AUTOANTIBODIES, AND ANTIBODY THERAPY CONTAINING HAMA MAY INTERFERE WITH THIS TEST RESULT. CORRELATION TO CLINICAL HISTORY AND PRESENTATION RECOMMENDED. 08/04/2024 10:3 5 PM MANAGER CARDIAC Henry Narayanan MD LABORATORY Final Result Performing Organization Address City/[facility]/ZIP Co de Phone Number [facility] [address] [place] [address], [place] [phone] * POCT glucose (07/02/2024 7:54 AM MANAGER CARDIAC) GLUCOSE POC 71 70 - 110 mg/dL 07/02/2024 8:[address] [facility] 07/02/2024 7:54 AM MANAGER CARDIAC Lilly Lim Kareen COFFEYN POCT ORDERABLES - DEVICE Final Result Performing Organization Address [facility] Co de Phone Number [facility] [address] [place] [address], [place] [phone] * CTA CHEST PE PROTOCOL (07/01/2024 4:30 PM MANAGER CARDIAC) Anatomical Region Laterality Modality Chest Computed Tomogra phy 07/01/2024 5:04 PM MANAGER CARDIAC Impressions 07/01/2024 5:18 PM MANAGER CARDIAC IMPRESSION: 1. No evidence of pulmonary embolism. 2. No acute findings within the chest. 3. Indeterminate left axillary and breast lymphadenopathy and soft tissue edema. 4. Gallbladder wall thickening, if clinical concern for acute cholecystitis recommend gallbladder ultrasound for further evaluation. 5. Large hiatal hernia without significant interval change. 6. Partially imaged abdominal aortic aneurysm, recommend outpatient/nonemergent dedicated imaging. 7. Additional chronic/nonemergent findings as above. Referred By: Interpreted By: Hortencia Luna DO, 07/01/2024 5:04 PM Narrative 07/01/2024 5:18 PM MANAGER CARDIAC [facility] [address] [place] [address] EXAMINATION: CTA CHEST PE PROTOCOL INDICATION: has left upper extremity edema and left sided inspiratory rales. concerned about lung or breast mass TECHNIQUE: Contiguous CT images of the chest with contrast were obtained utilizing an institutional pulmonary angiogram technique. Coronal and sagittal reformatted images along with an multiplanar MIPS were obtained from the source data. A dose lowering technique was utilized for this procedure which may include but is not limited to dose reduction techniques, automated exposure control, and/or the use of iterative reconstruction in accordance with ALARA principle. IV Contrast: 80 mL Isovue 370 Oral contrast: None. COMPARISON: CT chest without 11/25/2022. FINDINGS: Pulmonary arteries: Diagnostic quality: Contrast bolus is adequate for assessment of the subsegmental pulmonary arteries. Filling defects: No filling defects are identified. Main Pulmonary Artery: The main pulmonary artery measures 30 mm, enlarged. Right Heart Strain: There is no evidence of right heart strain. Lower Neck: Visualized thyroid is normal. No pathologically enlarged supraclavicular lymph nodes are identified. Mediastinum: No pathologically enlarged mediastinal lymph nodes are identified. Tortuous course of the descending thoracic aorta. Diffuse aortic calcifications. Mitral annular calcifications. Large hiatal hernia containing the majority of the stomach and surrounding gastric fat, similar to comparison exam. Heart: The heart size is enlarged. Unchanged small pericardial effusion. No coronary artery calcifications are present. Lungs: Unchanged foci of compressive atelectasis. No new pulmonary consolidation is identified. The airways are normal in caliber and appearance. Pleural Space: No pleural effusion or pneumothorax is identified. Upper abdomen: No acute intra-abdominal findings. Scattered diverticuli. Gallbladder wall thickening measuring approximate 0.5 cm. Aortic and main branch arterial calcifications. Partially imaged abdominal aortic aneurysm measuring 3.8 cm AP by 4.0 cm transverse. MUSCULOSKELETAL: Soft tissues: Muscular atrophy. Fat stranding of the left breast with enlarged intramammary and left axillary lymph nodes. Bones: No acute osseous abnormality. Scoliosis with associated degenerative change. Procedure Note Hortencia Luna DO - 07/01/2024 [facility] [address] [place] [address] EXAMINATION: CTA CHEST PE PROTOCOL INDICATION: has left upper extremity edema and left sided inspiratoryrales. concerned about lung or breast mass TECHNIQUE: Contiguous CT images of the chest with contrast were obtainedutilizing an institutional pulmonary angiogram technique. Coronal andsagittal reformatted images along with an multiplanar MIPS were obtainedfrom the source data. A dose lowering technique was utilized for thisprocedure which may include but is not limited to dose reductiontechniques, automated exposure control, and/or the use of iterativereconstruction in accordance with ALARA principle. IV Contrast: 80 mL Isovue 370 Oral contrast: None. COMPARISON: CT chest without 11/25/2022. FINDINGS: Pulmonary arteries: Diagnostic quality: Contrast bolus is adequate for assessment of thesubsegmental pulmonary arteries. Filling defects: No filling defects are identified. Main Pulmonary Artery: The main pulmonary artery measures 30 mm,enlarged. Right Heart Strain: There is no evidence of right heart strain. Lower Neck: Visualized thyroid is normal. No pathologically enlargedsupraclavicular lymph nodes are identified. Mediastinum: No pathologically enlarged mediastinal lymph nodes areidentified. Tortuous course of the descending thoracic aorta. Diffuseaortic calcifications. Mitral annular calcifications. Large hiatal herniacontaining the majority of the stomach and surrounding gastric fat,similar to comparison exam. Heart: The heart size is enlarged. Unchanged small pericardial effusion.No coronary artery calcifications are present. Lungs: Unchanged foci of compressive atelectasis. No new pulmonaryconsolidation is identified. The airways are normal in caliber andappearance. Pleural Space: No pleural effusion or pneumothorax is identified. Upper abdomen: No acute intra-abdominal findings. Scattered diverticuli.Gallbladder wall thickening measuring approximate 0.5 cm. Aortic and mainbranch arterial calcifications. Partially imaged abdominal aorticaneurysm measuring 3.8 cm AP by 4.0 cm transverse. MUSCULOSKELETAL: Soft tissues: Muscular atrophy. Fat stranding of the left breast withenlarged intramammary and left axillary lymph nodes. Bones: No acute osseous abnormality. Scoliosis with associateddegenerative change. IMPRESSION: 1. No evidence of pulmonary embolism. 2. No acute findings within the chest. 3. Indeterminate left axillary and breast lymphadenopathy and soft tissueedema. 4. Gallbladder wall thickening, if clinical concern for acutecholecystitis recommend gallbladder ultrasound for further evaluation. 5. Large hiatal hernia without significant interval change. 6. Partially imaged abdominal aortic aneurysm, recommendoutpatient/nonemergent dedicated imaging. 7. Additional chronic/nonemergent findings as above. Referred By: Interpreted By: Hortencia Luna DO, 07/01/2024 5:04 PM Jaswinder Mead MD CT Final Resul t * CORONAVIRUS (COVID-19) MOLECULAR (07/01/2024 3:54 PM MANAGER CARDIAC) CORONAVIRUS SARS COV 2 RNA NEGATIVE NEGATIVE 07/01/2024 4:[address] [facility] Comment: NEGATIVE RESULTS DO NOT RULE OUT COVID 19 AND SHOULD NOT BE USED THE SOLE BASIS FOR TREATMENT OR PATIENT MANAGEMENT DECISIONS, INCLUDING INFECTION CONTROL DECISIONS. NEGATIVE RESULTS SHOULD BE CONSIDERED IN THE CONTEXT OF A PATIENT'S RECENT EXPOSURES, HISTORY AND THE PRESENCE OF CLINICAL SIGNS AND SYMPTOMS CONSISTENT WITH COVID 19. THE ID NOW COVID-19 2.0 TEST HAS BEEN AUTHORIZED BY THE FDA UNDER EAU FOR USE BY AUTHORIZED LABORATORIES. PERFORMED BY NUCLEIC ACID AMPLIFICATION FOR MOLECULAR QUALITATIVE DETECTION OF SARS-COV-2. SPECIMEN TYPE NASAL 07/01/2024 3:[address] [facility] NASOPHARYNGEAL SWAB / Unknown 07/01/2024 3:54 PM MANAGER CARDIAC Jaswinder Mead MD MICROBIOLOGY - GENERAL ORDE [facility] Final Result [facility] [address] [place] [address], [place] [phone] * INFLUENZA A & B (07/01/2024 3:54 PM MANAGER CARDIAC) SPECIMEN TYPE NASOPHARYNX 07/01/2024 3:[address] [facility] INFLUENZA A NEGATIVE NEGATIVE 07/01/2024 4:[address] [facility] INFLUENZA B NEGATIVE NEGATIVE 07/01/2024 4:[address] [facility] NASAL NASOPHARYNGEAL SWAB / Unknown 07/01/2024 3:54 PM MANAGER CARDIAC Jaswinder Mead MD MICROBIOLOGY - GENERAL ORDE [facility] Final Result Performing Organization Address [facility]/ZIP Co de Phone Number [facility] [address] [place] [address], [place] [phone] * LACTIC ACID W REFLEX (SEPSIS) (07/01/2024 3:36 PM MANAGER CARDIAC) LACTIC ACID VENOUS 1.1 0.4 - 2.0 MMOL/L 07/01/2024 4:[address] [facility] 07/01/2024 3:36 PM MANAGER CARDIAC Jaswinder Mead MD LABORATORY Final Resul t Performing Organization Address [facility] Co de Phone Number [facility] [address] [place] [address], [place] [phone] * DIABETIC RETINOPATHY EXAM (NEGATIVE) (06/24/2024) [employer] Scanned SCANNING Final Resu lt Performing Organization Address [facility]/ZIP Co de Phone Number [facility] * HEMOGLOBIN, GLYCOSYLATED (06/10/2024) HGB A1C 5.5 % [facility] [place] 06/10/2024 Roberto Ocasio DO LABORATORY Final Re sult Performing Organization Address City[facility]/ZIP Co de Phone Number [facility] [address] [place] [address], [place] * COLONOSCOPY GENERIC (SCAN ORDER) (10/28/2023) 10/28/2023 [facility] Scanned SCANNING Final Resu lt * (ABNORMAL) LIPID PANEL (10/09/2023 11:41 AM CDT) CHOLESTEROL 174 <200 MG/DL 10/10/2023 11:40 AM CDT [facility] TRIGLYCERIDES 145 <150 MG/DL 10/10/2023 11:40 AM CDT [facility] HDL 47 >40 MG/DL 10/10/2023 11:40 AM CDT [facility] LDL-C 98 <100 MG/DL 10/10/2023 11:40 AM CDT [facility] VLDL CALCULATION 29(H) 5 - 28 MG/DL 10/10/2023 11:40 AM CDT [facility] CHOL/HDL RATIO 3.7 0.0 - 4.0 10/10/2023 11:40 AM CDT [facility] LDL/HDL 2.1 0.41 - 2.13 10/10/2023 11:40 AM CDT [facility] NON HDL CHOLESTEROL 127 <140 MG/DL 10/10/2023 11:40 AM CDT [facility] 10/09/2023 11:4 1 AM CDT Roberto Ocasio DO LABORATORY Final Re sult [facility] [address] [place] [address], * (ABNORMAL) COLOGUARD (EXACT SCIENCE) (05/03/2023 1:30 AM CDT) COLOGUARD RESULT Positive( A) Negative [facility] (CLIA #:[id number]) Comment: POSITIVE TEST RESULT. A positive Cologuard result should be followed with a colonoscopy or visual examination of the colon. The normal value (reference range) for this assay is negative. TEST DESCRIPTION: Composite algorithmic analysis of stool DNA-biomarkers with hemoglobin immunoassay. Quantitative values of individual biomarkers are not reportable and are not associated with individual biomarker result reference ranges. Cologuard is intended for colorectal cancer screening of adults of either sex, 45 years or older, who are at average-risk for colorectal cancer (CRC). Cologuard has been approved for use by the [place]. FDA. The performance of Cologuard was established in a cross sectional study of average-risk adults aged 50-84. Cologuard performance in patients ages 45 to 49 years was estimated by sub-group analysis of near-age groups. Colonoscopies performed for a positive result may find as the most clinically significant lesion: colorectal cancer [4.0%], advanced adenoma (including sessile serrated polyps greater than or equal to 1cm diameter) [20%] or non- advanced adenoma [31%]; or no colorectal neoplasia [45%]. These estimates are derived from a prospective cross-sectional screening study of 10,000 individuals at average risk for colorectal cancer who were screened with both Cologuard and colonoscopy. (Giacomo Johnson al, N Engl J Med 2014;370(14):3011-2923.) Cologuard may produce a false negative or false positive result (no colorectal cancer or precancerous polyp present at colonoscopy follow up). A negative Cologuard test result does not guarantee the absence of CRC or advanced adenoma (pre-cancer). The current Cologuard screening interval is every 3 years. ([place] [employer] and [place] Multi-Society Task Force). Cologuard performance data in a 10,000 patient pivotal study using colonoscopy as the reference method can be accessed at the following location: [email or web address]/results. Additional description of the Cologuard test process, warnings and precautions can be found at [email or web address].com. STOOL STOOL SPECIMEN / Unknown 05/03/2023 1:30 AM CDT 05/04/2023 11:27 PM CDT us Roberto Peterson Luchtefeld DO BODY FLUIDS AND STOOLS O RDERABLES Final Result [facility] [address] [place] [address], [place] [phone] [facility] (CLIA #:[id number]) [address] [place] [address] * CT CHEST WO CON (11/25/2022 2:34 PM CDT) Anatomical Region Laterality Modality Chest Computed Tomogra phy 11/25/2022 4:18 PM CDT Impressions 11/25/2022 4:28 PM CDT IMPRESSION: 1. There is probable small patchy infiltrate with air bronchograms within the medial left lung base versus compressive atelectasis from adjacent large hiatal hernia measuring 10.1 cm. 2. Mild atelectasis versus scar in the lingular segment. Mild scattered interstitial fibrosis. No pleural effusion or pneumothorax. 3. Atherosclerotic aorta without dilatation. Small pericardial effusion. Greatest thickness of pericardial effusion is 1.1 cm. Please see recent echocardiogram. Advanced coronary artery calcifications. 4. No pathologic lymphadenopathy or pulmonary nodules. Nonpathologic sized mediastinal lymph nodes. 5. Upper abdomen with normal adrenals. Fatty superior liver. Degenerative change in thoracic spine. Moderate scoliosis. Ordered By: PHILIPP VALVERDE Interpreted By: Bridgette Cortez, 11/25/2022 4:18 PM Narrative 11/25/2022 4:28 PM CDT IMAGING STUDIES: CT CHEST WO CON DATE: 11/25/2022 2:10 PM COMPARISON STUDIES: Chest x-ray 11/22/2022 CLINICAL HISTORY: Abnormal xray - lung opacity/opacities . Shortness of breath. Radiation dose reduction technique was utilized. Procedure Note Ag Cortez MD - 11/25/2022 IMAGING STUDIES: CT CHEST WO CON DATE: 11/25/2022 2:10 PM COMPARISON STUDIES: Chest x-ray 11/22/2022 CLINICAL HISTORY: Abnormal xray - lung opacity/opacities . Shortnessof breath. Radiation dose reduction technique was utilized. IMPRESSION: 1. There is probable small patchy infiltrate with air bronchograms withinthe medial left lung base versus compressive atelectasis from adjacentlarge hiatal hernia measuring 10.1 cm. 2. Mild atelectasis versus scar in the lingular segment. Mild scatteredinterstitial fibrosis. No pleural effusion or pneumothorax. 3. Atherosclerotic aorta without dilatation. Small pericardial effusion.Greatest thickness of pericardial effusion is 1.1 cm. Please see recentechocardiogram. Advanced coronary artery calcifications. 4. No pathologic lymphadenopathy or pulmonary nodules. Nonpathologicsized mediastinal lymph nodes. 5. Upper abdomen with normal adrenals. Fatty superior liver. Degenerativechange in thoracic spine. Moderate scoliosis. Ordered By: PHILIPP VALVERDE Interpreted By: Bridgette Cortez, 11/25/2022 4:18 PM Philipp Valverde MD CT Final Result * HEPATITIS C ANTIBODY ([facility] ONLY) (10/03/2022 6:49 PM CDT) HEPATITIS C AB NON-REACTI VE NON-REACT PHU 10/03/2022 9:42 PM CDT [facility] Comment: ANTIBODIES TO HCV NOT DETECTED. DOES NOT EXCLUDE THE POSSIBILITY OF EXPOSURE TO HCV. 10/03/2022 6:49 PM CDT Roberto Ocasio DO LABORATORY Final Re sult [facility] [address] [place] [address], [id number] from Last 3 Months or Most Recently Relevant to Health Maintenance Insurance MEDICARE MEDICAID Advance Directives * Full Code (Latest Code Status on File) Date Activated Date Inactivated Comments 07/02/2024 1:36 PM 07/04/2024 4:16 PM * Full Code Date Activated Date Inactivated Comments 11/22/2022 2:51 PM 11/26/2022 3:19 PM Care Teams Stock Controller Relationship Specialty Start Date End Date Roberto Ocasio DO [address] [place] [id number] PCP - General FAMILY PRACTICE 02/08/20 Tyson Silverio MD [address] [address] Consulting Physician CARDIOVASCULAR DISEASE 07/05/24
== END 2024-09-24 15:03 | disposition home or self-care (01) ==
LOC: ANHIMG 15:04
PROVIDERS: PCP Student in an Organized Health Care Education/Training Program; Visit Provider Student in an Organized Health Care Education/Training Program
DX: Z12.31 Encounter for screening mammogram for malignant neoplasm of breast (principal)
CPT/HCPCS: 77063; 77067

== ENCOUNTER 2024-12-10 21:38 | Emergency (ER) | payer MEDICARE, MEDICAID, SELFPAY ==
--- OUTSIDE RECORDS SUMMARY | 2024-12-10 21:41 | XMS_ITS | Clinical Summary ---
Author Organization [facility] [address] [facility] Address [address] [place] [address] Care Team Providers Care Pile Driver Operator Helper Name Role Phone Alessandra Reed MD Unavailable [phone] Martinez Bergman DPM Unavailable [phone] Roberto Ocasio DO Primary Care Provide r Ricardo Yost DO Unavailable [phone] Allergies Active Allergy Reactions Criticality Noted [...] B12 Assessment & Plan (09/25/2020 2:53 PM COPY OPERATOR): On home B12 injections once monthly. Last had an injection several days prior to admission. - CTM Constipation 09/25/2020 Overview (09/25/2020): On home pericolace 8.6-50 mg BID prn. - Continue home pericolace Environmental allergies 09/25/2020 Assessment & Plan (09/25/2020 3:12 PM COPY OPERATOR): On home benadryl 25 mg QID prn. [...] statin Assessment & Plan (09/25/2020 8:41 AM COPY OPERATOR): H/o RLE PAD s/p RLE bypass c/b [...] 07/27/2020 Assessment & Plan (07/28/2020 12:29 PM COPY OPERATOR): - WBC increased yesterday. Stable this am. T max 38 overnight - C. Diff negative 07/27 - Check blood cultures per ID - Check UA, CXR Pressure injury of right heel, stage 2 0 Assessment & Plan (07/26/2020 6:36 AM COPY OPERATOR): - Present on admission - Offload with elizabeth boots when in bed - No weight bearing restrictions - Podiatry recommends Allevyn foam dressing change every other day - Betadine paint BID Wound of left groin 07/18/2020 Assessment & Plan (09/25/2020 3:16 PM COPY OPERATOR): On home collagenase 250 unit/gram BID. - Continue home collagenase Assessment & Plan (09/12/2020 9:14 AM COPY OPERATOR): - STOP Ciprofloxacin 500mg BID and Augmentin [...] concerns. Assessment & Plan (08/15/2020 10:32 AM COPY OPERATOR): - Will continue Ciprofloxacin, dose change to [...] hepatitis. Assessment & Plan (07/28/2020 4:38 PM COPY OPERATOR): 70 y.o. female w/PMH of T2DM, HTN, [...] follow. Assessment & Plan (07/29/2020 1:06 PM COPY OPERATOR): - s/p previous remote R TMA and L OIL T[employer]ER endarterectomy, left EIA angioplasty/stenting and left fem-BK [...] atorvastatin Assessment & Plan (09/25/2020 8:36 AM COPY OPERATOR): On home atorvastatin 40 mg daily. - Continue home atorvastatin Assessment & Plan (07/18/2020 8:53 AM COPY OPERATOR): - continue home atorvastatin, ASA Drug allergy 07/18/2020 Assessment & Plan (07/26/2020 6:42 AM COPY OPERATOR): Previous admission Increasing in area/itching, presumed to be due to drug reaction as she was on empiric antibiotics- cefepime, flagyl, vancomycin, as well as proximity to metoprolol trial. Reported that rash improved after switching back to cefazolin from cefepime; Allergy feels like rash most likely related to medication (Cefepime) vs willy. - Morbilliform rash to L thigh this admission, [facility]ed, now improving - PRN benadryl scheduled zyrtec - Sarna lotion PRN, hydrocortisone cream 4 times daily UTI (urinary tract infection) 07/06/2020 Assessment & Plan (07/07/2020 3:05 PM COPY OPERATOR): - Endorsed urinary hesitancy, UA checked with [...] antibiotics. Assessment & Plan (07/26/2020 6:36 AM COPY OPERATOR): - dx on 06/28/20 US w/ acute [...] daily Assessment & Plan (09/25/2020 8:35 AM COPY OPERATOR): H/o L femoral endarterectomy and profundaplasty, L external iliac artery stenting (Lifestream), and L common femoral to below knee popliteal artery bypass w/ PTFE (06/27/20) c/b LLE DVT. On home xarelto 10 mg daily and ASA 81 mg daily. - Hold home xarelto (see PAD) - Continue home ASA Assessment & Plan (07/07/2020 3:01 PM COPY OPERATOR): - Venous injury in OR s/p repair [...] 06/30/2020 Assessment & Plan (09/25/2020 2:54 PM COPY OPERATOR): A1c 5.8 (06/22/20). Currently controlled w/ diet. Previously was uncontrolled and was c/b PAD resulting in R toe amputations and RLE arterial bypass in 2011. - LDSSI Assessment & Plan (09/25/2020 8:37 AM COPY OPERATOR): A1c 5.8 (06/22/20). Controlled w/ diet. - LDSSI Assessment & Plan (07/18/2020 8:52 AM COPY OPERATOR): - Diet controlled at home - LD SSI while inpatient - Carb consistent diet Assessment & Plan (07/03/2020 8:30 AM COPY OPERATOR): T2 DM w/ complications of diabetic neuropathy BLE and non-healing wounds with amputations: - A1c 5.8% - Podiatry reviewed diabetic foot care instructions w/ pt - Managed with dietary modifications at home per pt - HDSSI, continue to monitor BG Tachycardia 06/30/2020 Assessment & Plan (06/30/2020 10:15 PM COPY OPERATOR): Persistent throughout hospitalization, volume status euvolemic postoperatively. Was on IVP metoprolol in ICU -Transition to PO metoprolol as she is tolerating full diet. Sacral insufficiency fracture 06/25/2020 Assessment & Plan (07/01/2020 9:57 AM COPY OPERATOR): - Found on CTA, repeat CT with chronic/subacute right sacral ala insufficiency fracture with no acute fractures noted of the pelvis or proximal femurs - Consulted Orthopedics, non-operative management at this time. - Should follow up in [facility], ambulatory referral has been placed Candidal intertrigo 06/24/2020 Assessment & Plan (07/01/2020 9:43 AM COPY OPERATOR): - Miconazole powder per ID - Keep area clean and dry Assessment & Plan (06/24/2020 10:57 AM COPY OPERATOR): Chyna intertrigo under right breast. Recommend nystatin powder and keeping area dry Therapeutic drug monitoring 06/23/2020 Assessment & Plan (06/29/2020 3:46 PM COPY OPERATOR): CBC with diff, CMP weekly. Hypertensive disorder 06/22/2020 Assessment & Plan (10/06/2020 2:23 PM CDT): On home amlodipine 2.5 mg daily and metoprolol tartrate 12.5 mg BID. Pt reports good BP control at home (~120/70). - Continue home amlodipine and metoprolol - VS q 4 Assessment & Plan (09/25/2020 8:37 AM COPY OPERATOR): On home amlodipine 2.5 mg daily and metoprolol tartrate 12.5 mg BID. - Continue home amlodipine and metroprolol Assessment & Plan (07/18/2020 8:53 AM COPY OPERATOR): - VS Q4 hrs - Continue home amlodipine, metoprolol Assessment & Plan (07/07/2020 3:05 PM COPY OPERATOR): - Holding all home antihypertensives but resumed low dose metoprolol for HR control - SBP goal 100-160 - Shock postoperatively requiring vasopressors and blood/fluid resuscitation - low dose metoprolol, 2.5mg daily amlodipine started - Monitor I&O and BP Osteomyelitis 06/21/2020 Overview (06/26/2020): Added automatically from request for surgery [id number] Assessment & Plan (11/21/2020 9:19 AM CDT): [...] outcome Assessment & Plan (08/15/2020 10:24 AM COPY OPERATOR): - Pt has completed 6 weeks of IV cefazolin 2g q8hrs for osteomyelitis of the L great toe, s/p amputation, Cx + MSSA. - Given good wound healing, ok to stop IV Cefazolin. - Rin may be removed. - Orders provided for pt to take to facility. Assessment & Plan (07/25/2020 2:14 PM COPY OPERATOR): cx + MSSA - ESR/CRP (07/17): 49/19 Recommendations: - Wound looks to be healing without without e/o infection. - Continue on cefazolin 2g IV q8h as originally planned,06/28-08/09. Assessment & Plan (07/28/2020 12:13 PM COPY OPERATOR): - s/p amputation on 06/28/20 with podiatry [...] antibiotics. Assessment & Plan (07/02/2020 12:13 PM COPY OPERATOR): Assessment/Plan 70 year old female with PMH including: T2dm, hyperlipidemia, HTN. Admitted a week after trauma to her L great toe found to be gangrenous on admission to [facility]. She had a bedside debridement there, cx + MSSA. Started on cefazolin and transferred to [facility] for revascularization. - OSH CT/MR L foot [...] will continue to follow. Matt Hernandez MD,[facility] Support Administratorfeeder tender Division of Infectious Diseases Team 3 ID attending phone- [phone] Pager- [phone] Assessment & Plan (07/05/2020 8:45 AM COPY OPERATOR): - L foot x-ray with soft tissue [...] ramelteon Assessment & Plan (09/25/2020 8:37 AM COPY OPERATOR): On home ramelteon 8 mg nightly prn. - Continue home ramelteon Arteriosclerosis of artery of extremity 07/04/20 11 Assessment & Plan (07/07/2020 2:58 PM COPY OPERATOR): - Continue aspirin, statin daily - MIKI [...] 09/25/2020 Assessment & Plan (09/25/2020 8:36 AM COPY OPERATOR): On home ferrous sulfate 325 mg (65 mg elemental iron) daily. - Continue home ferrous sulfate Assessment & Plan (07/28/2020 12:57 PM COPY OPERATOR): - H/H 7.4/22 - Transfused 1 unit 07/27 with appropriate bump in hgb - Monitor CBC Nausea 07/26/2020 07/28/2020 Assessment & Plan (07/27/2020 9:30 AM COPY OPERATOR): - Patient endorses nausea over the last 3 days, she contributes this to flagyl. - Continue zofran PRN Rash 06/30/2020 09/25/2020 Assessment & Plan (09/25/2020 8:40 AM COPY OPERATOR): On home camphor-menthol lotion topically q2 prn, collagenase BID, hydrocortisone 2.5% cream QID, and miconazole 2% powder BID. - Continue home camphor-menthol lotion, collagenase, hydrocortisone cream, and miconazole powder Assessment & Plan (07/05/2020 8:48 AM COPY OPERATOR): - Increasing in area/itching, presumed to be [...] 07/02/2020 Assessment & Plan (06/30/2020 12:01 PM COPY OPERATOR): 70 year old female with PMH including: T2dm, hyperlipidemia, HTN. Admitted a week after trauma to her L great toe found to be gangrenous on admission to [facility]. She had a bedside debridement there, cx + MSSA. Started on cefazolin and transferred to [facility] for revascularization. - OSH CT/MR L foot [...] weekend. Assessment & Plan (07/01/2020 9:41 AM COPY OPERATOR): - Gangrenous left great toe, concern for osteomyelitis - L great toe 3v x-ray with underlying osteomyelitis of the distal phalanx - Continuing cefazolin, OSH cultures with MSSA - ID consulted for antibiotic recommendation/half-way plans, following patient. - Podiatry consulted; left [...] on file Legal Sex Female 1:08 PM COPY OPERATOR Gender Identity Not on file Sexual Orientation [...] 2023-2 5 season) 2024 07/09/2021, 09/06/2020, 08/16/2020 Lipid Panel 10/08/2024 10/09/2023, 06/0 01/2022, 03/01/2021, Additional history exists Fall Risk Assessment 10/27/2024 10/28/2023 Influenza Vaccine (Season Ended) 2025 04/09/2022, 04/08/2021, 04/09/2020, Additional history exists Hepatitis C Screening Completed 09/29/2020 Zoster Vaccine Completed 08/17/2021, 04/15/2021 Pneumococcal vaccine 65+ Completed 12/25/2021 Colon Cancer Screening-Colonoscopy Discontinued 10/28/2023 Medical Devices Implanted Type Area Window Decorator Device Identifier Shelf Expiration Date Model / Serial / Lot [employer] Vg-0108n Vascu-Guard 8x.8cm Peripheral Patch Vascular Bovine Pericardium - S00 - [id number] Implanted:Qty : 1 on 09/29/2020 by Alessandra Reed MD at [facility] Aneurysm Coils Right: Other - see comments [employer] 06/07/2025 VG-0108 N / 00 / [id number] Description:Popliteal implan t Bard Peripheral Vascular [id number] Lifestream 7mm 37mm 80cm Balloon Expandable Low Profile Cover - S00 - [id number] Implanted:Qty : 1 on 09/29/2020 by Alessandra Reed MD at [facility] Endoprosthesis Right: Iliac [employer] [id number] 03/20/2023 [id number] / 00 / [id number] Bard Peripheral Vascular [id number] Lifestream 7mm 58mm 80cm Balloon Expandable Low Profile Cover - S00 - [id number] Implanted:Qty : 1 on 09/29/2020 by Alessandra Reed MD at [facility] Endoprosthesis Right: Iliac Bard Peripheral Vascular [id number] 07/20/2022 [id number] / 00 / [id number] [employer] [id number] Blythe 6mm 70cm 60cm Removable Ring Stretch Thin Wall Graft - [id number] - [id number] Implanted:Qty : 1 on 06/27/2020 by Alessandra Reed MD at [facility] Graft Left: Leg Wl [employer] [id number] 12/01/2023 [id number] / [id number] / [facility] [employer] Vg-0108n Vascu-Guard 8x.8cm Peripheral Patch Vascular Bovine Pericardium - S00 - [id number] Implanted:Qty : 1 on 06/27/2020 by Alessandra Reed MD at [facility] Graft Left: Femoral [facility] [employer] 02/22/2025 VG-0108 N / 00 / [id number] [facility] [employer] Vg-0108n Vascu-Guard 8x.8cm Peripheral Patch Vascular Bovine Pericardium - S00 - [id number] Implanted:Qty : 1 on 06/27/2020 by Alessandra Reed MD at [facility] Graft Left: Leg [facility] 02/22/2025 VG-0108 N / 00 / [id number] Description:Left popliteal a rtery [employer]l [employer] [id number] Blythe 6mm 80cm 60cm Removable Ring Stretch Thin Wall Graft - [id number] - [id number] Implanted:Qty : 1 on 09/29/2020 by Alessandra Reed MD at [facility] Other - see comments Right: Leg [employer]l [employer] [id number] 03/21/2024 [id number] / [id number] / 00 [facility] [employer] Vg-0108n Vascu-Guard 8x.8cm Peripheral Patch Vascular Bovine Pericardium - S00 - [id number] Implanted:Qty : 1 on 09/29/2020 by Alessandra Reed MD at [facility] Other - see comments Right: Femoral [facility] [employer] 06/07/2025 VG-0108 N / 00 / [id number] Description:Bovine patch [facility] [employer] Vg-0108n Vascu-Guard 8x.8cm Peripheral Patch Vascular Bovine Pericardium - [id number] Implanted:Qty : 1 on 09/30/2020 by Alessandra Reed MD at [facility] Other - see comments Right: Leg [facility] 05/17/2025 VG-0108 N / / [id number] Description:Tibial-peritonea l branch Bard [employer]ipheral [employer]ascular [id number] Lifestream 7mm 58mm 80cm Balloon Expandable Low Profile Cover - S00 - [id number] Implanted:Qty : 1 on 06/27/2020 by Alessandra Reed MD at [facility] Stent Left: Iliac [employer] 07/20/2022 [id number] / 00 / Description:Left external il iac Bard Peripheral Vascular [id number] Lifestream 7mm 37mm 80cm Balloon Expandable Low Profile Cover - S00 - [id number] Implanted:Qty : 1 on 06/27/2020 by Alessandra Reed MD at [facility] Stent Left: Iliac [employer] 07/20/2022 [id number] / / Description:Left external il iac Procedures Procedure Name Priority Date/Time Associated Diagnosis Comments COLONOSCOPY 10/28/2023 10:08 AM CDT HEPATITIS C ANTIBODY Routine 09/29/2020 11:35 AM COPY OPERATOR HEMOGLOBIN A1C STAT 09/25/2020 2:14 PM COPY OPERATOR LIPID PANEL Routine 06/22/2020 1:40 AM COPY OPERATOR from Last 3 Months or Most Recently Relevant to Health Maintenance Results * Colonoscopy (10/28/2023 10:08 AM CDT) Anatomical Region Laterality Modality Other Narrative Procedure Note Erich Terry MD - 10/28/2023 10:08 AM CDT [facility]OS[facility] Patient Name: Camilla Valadez Procedure Date: 10/28/2023 10:08 AM Date of : 1950 Admit Type: Outpatient Age: 73 Gender: Female Attending MD: Erich Buchanan M.D. Room: [facility] ENDOSCOPY ROOM 9 Note Status: Finalized Procedure: [...] the bowel preparation was evaluatedusing the BBPS ([place] Bowel Preparation Scale) withscores of: Right Colon = 3, Transverse Colon = 3 and Left Colon = 3 (entire mucosa seen well with no residual staining, small fragments of stool or opaqueliquid). The total BBPS score equals 9. The quality of the bowel preparation was evaluated using the BBPS([place] Bowel Preparation Scale) with scores of: RightColon [...] scope was passedunder direct vision. The PCF [id number] endoscopewas introduced through the anus and [...] today's procedure, please call my office at [phone] and speak to my nurse. - In the unusual situation that you developabdominal pain, bleeding or other significant problems in the days following this procedure please call my office [phone]). After hours and eveningsplease call [phone] and speak to the GI fellow tucker. [...] * Hepatitis C antibody (09/29/2020 11:35 AM COPY OPERATOR) Hep C Ab Nonreactive Nonreactive DEE DEE NOONAN Comment:Antibodies to HCV no t detected. Does NOT exclude the possibility of recent exposure to HCV. Blood specimen (specimen) 09/29/2020 11:35 AM COPY OPERATOR 09/29/2020 12:06 PM COPY OPERATOR Notinfile Unknown LAB MICROBIOLOGY - GENERAL ORD ERABLES Edited Result - [facility] [place] [address] * Hemoglobin A1c (09/25/2020 2:14 PM COPY OPERATOR) Hgb A1C 5.4 4.0 - 5.6 % [facility] Estimated Average Glucose 108 mg/dL DEE DEE [facility] Comment: The ADA recommends reporting an estimated Average Glucose (eAG) with all Hemoglobin A1c results using the equation derived from a study of 507 normal and diabetic adults. Minority populations were underrepresented and children were not included. (Diabetes Care 31:1961-3753, 2008). The eAG is not equivalent to a fasting glucose. Blood specimen (specimen) 09/25/2020 2:14 PM COPY OPERATOR 09/25/2020 3:47 PM COPY OPERATOR Alessandra Reed MD LAB BLOOD ORDERABLES Alissa lujan Result [facility] [place] [address] * Lipid panel (06/22/2020 1:40 AM COPY OPERATOR) Cholesterol 121 30 - 199 mg/dL DEE DEE [facility] Comment: Interpretive Data Ages < or = [...] 2018. Triglycerides 84 <=149 mg/dL DEE DEE [facility] Comment: Interpretive Data Ages < or = [...] revised on 2018. HDL 42 >=40 mg/dL [facility] Comment: Interpretive Data Ages < or = [...] on 2018. LDL, calculated 62 <=129 mg/dL [facility] Comment: Interpretive Data Ages < or [...] revised on 2018. Non-HDL Cholesterol 79 mg/dL [facility] Comment: Interpretive Data Ages < or = [...] last revised on 2018. Chol/HDL ratio 3 [facility] Blood specimen (specimen) 06/22/2020 1:40 AM COPY OPERATOR 06/22/2020 2:35 AM COPY OPERATOR us Alessandra Reed MD LAB BLOOD ORDERABLES Alissa lujan Result [facility] [place] [address] from Last 3 Months or Most Recently Relevant to Health Maintenance Insurance MEDICARE MEDICARE [facility] MEDICARE [facility] Advance Directives For more information, please contact: [phone] * Full Code (Latest Code Status on File) Date Activated Date Inactivated Comments 10/28/2023 9:47 AM 10/28/2023 4:32 PM * Full Code Date Activated Date Inactivated Comments 09/25/2020 2:00 PM 10/07/2020 11:21 PM * Full Code Date Activated Date Inactivated Comments 07/17/2020 10:29 PM 07/30/2020 4:35 PM * Full Code Date Activated Date Inactivated Comments 06/22/2020 12:49 AM 07/08/2020 5:16 PM Care Teams Pile Driver Operator Helper Relationship Specialty Start Date End Date Roberto Ocasio DO [address] [place] [address] PCP - General Family Medicine 01/04/22 Alessandra Reed MD Surgeon Vascular Surgery 07/07/20 Martinez Bergman DPM Referring Physician Podiatry 10/07/20 Ricardo Yost DO [facility] [place] [address] Consulting Physician Gastroenterology 09/23/23
--- OUTSIDE RECORDS SUMMARY | 2024-12-10 21:41 | XMS_ITS | Data Portability ---
Author Organization [facility], [facility] Address [address] [place] [address] Assessment No assessment recorded. Plan of Treatment Reminders Order Date Submit Date Provider Last Modified By Organization Details Last Modified Time Details Appointments None recorded. Lab None recorded. Referral None recorded. Procedures None recorded. Surgeries None recorded. Imaging US, pelvis, transabdomi nal + transvagina l 2021 022 [email or web address] Not available 21:44:32 MRI, pelvis, w/wo contrast 2021 022 cox [email or web address] [facility] [place] [facility], [address] [place], [address], 15:23:23 Medication Orders None recorded. Patient TargetsNo [...] absen ce of disea se. Not Available [facility] [address], [place], [address], 06/01/2022 08:07:03 04/23/20 22 04/23/2022 US, pelvi s, trans abdom inal + trans vagin al No observ ation record ed. [email or web address] [address], [place], [address], 04/23/2022 15:33:50 05/21/20 22 05/16/2022 MRI pel wwo con [facility] [place] [facility] [address] [facility] [address] [place], [place] [address] EXAMIN ATION: MRI pelvis with and withou t contra st Access ion: [id number] Exam Date/T latha: 2021 11:35 AM [...] and isoech oic signal with a few business services intern al cystic spaces . There is [...] teriza tion. L5-S1 mild disc degene rative polishing machine tender ior narrow ing with a tiny polishing machine tender ior annula r tear and minima l [...] reted By: Puja Gaytan MD, 2:16 PM [facility] [address] [place], [address], 05/24/2022 17:51:10 Result Notes None recorded. Problems Name Problem SNOMED Code Status Onset Date Resolution Date Notes Provider Name and Address Organization Details Recorded Time Hypertensive disorder 00573024 Active 2021 Oma Goodwin MD [facility] [place], [address], [employer] 2 15:46:21 Type 2 diabetes mellitus 73995133 Active 2021 Oma Goodwin MD [facility] [place], [address], [facility] 2 15:46:31 Hyperlipidem ia 64841632 Active 2021 Oma Goodwin MD [address] [place], [address], [facility] - [employer] IV 15:46:40 Deep venous thrombosis 206805890 Active 2021 on Xarelto Oma Goodwin MD [address] [place], [address], [facility] - [employer] IV 15:46:55 Peripheral arterial disease 869428993 Active 2021 Oma Goodwin MD [address] [place], [address], [facility] - [employer] [facility] IV 15:47:11 Problem Notes None recorded. Procedures Surgical History Date Name Laterality Status Provider Name and Address Organization Details Recorded Time 5 delivery completed Carlee Nascimento [place] [employer] [facility] 04/23/2022 12:08:02 3 delivery completed Carlee Nascimento [facility] [employer] [facility] 04/23/2022 12:07:57 Imaging Results Imaging Date Name Status LastModified by Organization Details LastModified Time 04/23/2022 US, pelvis, transabdominal + transvaginal completed [email or web address], [place], [address], 04/23/2022 15:33:50 05/16/2022 MRI pel wwo con completed [facility] [address] [facility], [place], [address], 05/24/2022 17:51:10 Procedure Notes None recorded. Medical Equipment None Reported. Allergies Allergen ID Allergen Name Allergen Category Reaction Reaction Severity Criticality Documentation Date Start Date Code Code System Note Provider Name and Address Organization Details Recorded Time 001217 Product containin g penicilli n (product) medicatio n Not available Not available Not available 04/23/2022 51595 8001 SNOMED Carlee alves, [place] [employer] [facility] IV 12:04:23 Medications Name Sig Start Date Stop Date [...] Updated DateTime 04/23/2022 167.64 cm 26 kg/m2 01454.09 g 132 mm[Hg] 80 mm[Hg] Carlee Nascimento [facility] 12:11:14 Social History Question Answer Notes LastModified by [employer] Details LastModified Time Tobacco Smoking Status Former Smoker Carlee Azam alves, [employer] [facility] 04/23/2022 12:07:36 Are You Blind Or Do You Have Difficulty Seeing? No [email or web address] Information not available 04/23/2022 Are You Deaf Or Do You Have Serious Difficulty Hearing? No [email or web address] Information not available 04/23/2022 What Type Of Diet Are You Following? REGULAR [email or web address] Information not available 04/23/2022 When Did You Quit Smoking? 1-5yearssince lastcigarette [email or web address] Information not available 04/23/2022 How Many Children Do You Have? 1 Information not available 04/23/2022 What Is Your Relationship Status? [email or web address] Information not available 04/23/2022 Are You Sexually Active? No [email or web address] Information not available 04/23/2022 Sex: Unknown Functional Status Question Answer Note LastModified by [employer] Details LastModified Time Do you use any illicit or recreational drugs? No [email or web address] Information not available 04/23/2022 Do you or have you ever used any other forms of tobacco or nicotine? No [email or web address] Information not available 04/23/2022 What is your level of alcohol consumption? Occasional [email or web address] Information not available 04/23/2022 Mental Status None recorded. Family History Relationship Description Onset Age of this Age Resolved Age Notes LastModified by Organization Details LastModified Time Father No current problems or disability [email or web address] Not available 10/2021 12:07:03 Mother No current problems or disability [email or web address] Not available 10/2021 12:07:03 Medical History Condition Response High Blood Pressure Y Diabetes Mellitus (non-insulin dependent ) Y Anemia Y High Cholesterol Y Deep Vein Thrombosis Y Seasonal allergies Y Gynecological History Statement/Question Response If Post [...] SNOMED-CT Code Diagnosis ICD10 Code Diagnosis Note [id number] Oma Goodwin MD [facility] [address] [place] [address] 04/23/2022 10:53:33 04/23/2022 13:13:47 Ultrasound scan abnormal [id number] R93.89 Recommend endometria l biopsy for slight [...] ion of today's patient visit. Pelvic mass [id number] R19 .00 Recommend Pelvic MRI to further [...] Recorded Advance Directives Directive None Recorded Payers Insurance Date Sequence Insurance Name Policy Number Policy Olvera Covered Member ID Olvera Member ID Guarantor Name 04/23/2022 1 [place] Camilla Camposger [id number] Camilla Sloger Notes Date Note Type Note Provider Name [...] cyst, U/S done today Oma Goodwin MD [address] [facility], [place], [address], [facility] [email or web address] 04/24/2022 15:36:24 OBGyn Episode No OBEpisode recorded.
--- OUTSIDE RECORDS SUMMARY | 2024-12-10 21:41 | XMS_ITS | Referral Summary ---
Author Organization [facility] [address] [facility] [address] [place] [address] Care Team Providers Care Industrial Relations Director Name Role Phone Alessandra Reed MD Unavailable [phone] Martinez Bergman DPM Unavailable Roberto Ocasio DO Primary Care Provide r Ricardo Yost DO Unavailable [phone] Allergies Active Allergy Reactions Criticality Noted [...] B12 Assessment & Plan (09/25/2020 2:53 PM TUBE SIZER AND CUTTER OPERATOR): On home B12 injections once monthly. Last had an injection several days prior to admission. - CTM Constipation 09/25/2020 Overview (09/25/2020): On home pericolace 8.6-50 mg BID prn. - Continue home pericolace Environmental allergies 09/25/2020 Assessment & Plan (09/25/2020 3:12 PM TUBE SIZER AND CUTTER OPERATOR): On home benadryl 25 mg QID [...] statin Assessment & Plan (09/25/2020 8:41 AM TUBE SIZER AND CUTTER OPERATOR): H/o RLE PAD s/p RLE bypass [...] 07/27/2020 Assessment & Plan (07/28/2020 12:29 PM TUBE SIZER AND CUTTER OPERATOR): - WBC increased yesterday. Stable this am. T max 38 overnight - C. Diff negative 07/27 - Check blood cultures per ID - Check UA, CXR Pressure injury of right heel, stage 2 0 Assessment & Plan (07/26/2020 6:36 AM TUBE SIZER AND CUTTER OPERATOR): - Present on admission - Offload with elizabeth boots when in bed - No weight bearing restrictions - Podiatry recommends Allevyn foam dressing change every other day - Betadine paint BID Wound of left groin 07/18/2020 Assessment & Plan (09/25/2020 3:16 PM TUBE SIZER AND CUTTER OPERATOR): On home collagenase 250 unit/gram BID. - Continue home collagenase Assessment & Plan (09/12/2020 9:14 AM TUBE SIZER AND CUTTER OPERATOR): - STOP Ciprofloxacin 500mg BID and [...] concerns. Assessment & Plan (08/15/2020 10:32 AM TUBE SIZER AND CUTTER OPERATOR): - Will continue Ciprofloxacin, dose change [...] hepatitis. Assessment & Plan (07/28/2020 4:38 PM TUBE SIZER AND CUTTER OPERATOR): 70 y.o. female w/PMH of T2DM, [...] follow. 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 - Continue home atorvastatin Assessment & Plan (07/18/2020 8:53 AM TUBE SIZER AND CUTTER OPERATOR): - continue home atorvastatin, ASA Drug allergy 07/18/2020 Assessment & Plan (07/26/2020 6:42 AM TUBE SIZER AND CUTTER OPERATOR): Previous admission Increasing in area/itching, presumed to be due to drug reaction as she was on empiric antibiotics- cefepime, flagyl, vancomycin, as well as proximity to metoprolol trial. Reported that rash improved after switching back to cefazolin from cefepime; Allergy feels like rash most likely related to medication (Cefepime) vs willy. - Morbilliform rash to L thigh this admission, [facility]'ed, now improving - PRN benadryl scheduled zyrtec - Sarna lotion PRN, hydrocortisone cream 4 times daily UTI (urinary tract infection) 07/06/2020 Assessment & Plan (07/07/2020 3:05 PM TUBE SIZER AND CUTTER OPERATOR): - Endorsed urinary hesitancy, UA checked [...] antibiotics. Assessment & Plan (07/26/2020 6:36 AM TUBE SIZER AND CUTTER OPERATOR): - dx on 06/28/20 US w/ [...] daily Assessment & Plan (09/25/2020 8:35 AM TUBE SIZER AND CUTTER OPERATOR): H/o L femoral endarterectomy and profundaplasty, L external iliac artery stenting (Lifestream), and L common femoral to below knee popliteal artery bypass w/ PTFE (06/27/20) c/b LLE DVT. On home xarelto 10 mg daily and ASA 81 mg daily. - Hold home xarelto (see PAD) - Continue home ASA Assessment & Plan (07/07/2020 3:01 PM TUBE SIZER AND CUTTER OPERATOR): - Venous injury in OR s/p [...] 06/30/2020 Assessment & Plan (09/25/2020 2:54 PM TUBE SIZER AND CUTTER OPERATOR): A1c 5.8 (06/22/20). Currently controlled w/ diet. Previously was uncontrolled and was c/b PAD resulting in R toe amputations and RLE arterial bypass in 2011. - LDSSI Assessment & Plan (09/25/2020 8:37 AM TUBE SIZER AND CUTTER OPERATOR): A1c 5.8 (06/22/20). Controlled w/ diet. - LDSSI Assessment & Plan (07/18/2020 8:52 AM TUBE SIZER AND CUTTER OPERATOR): - Diet controlled at home - LD SSI while inpatient - Carb consistent diet Assessment & Plan (07/03/2020 8:30 AM TUBE SIZER AND CUTTER OPERATOR): T2 DM w/ complications of diabetic neuropathy BLE and non-healing wounds with amputations: - A1c 5.8% - Podiatry reviewed diabetic foot care instructions w/ pt - Managed with dietary modifications at home per pt - HDSSI, continue to monitor BG Tachycardia 06/30/2020 Assessment & Plan (06/30/2020 10:15 PM TUBE SIZER AND CUTTER OPERATOR): Persistent throughout hospitalization, volume status euvolemic postoperatively. Was on IVP metoprolol in ICU -Transition to PO metoprolol as she is tolerating full diet. Sacral insufficiency fracture 06/25/2020 Assessment & Plan (07/01/2020 9:57 AM TUBE SIZER AND CUTTER OPERATOR): - Found on CTA, repeat CT with chronic/subacute right sacral ala insufficiency fracture with no acute fractures noted of the pelvis or proximal femurs - Consulted Orthopedics, non-operative management at this time. - Should follow up in [facility], ambulatory referral has been placed Candidal intertrigo 06/24/2020 Assessment & Plan (07/01/2020 9:43 AM TUBE SIZER AND CUTTER OPERATOR): - Miconazole powder per ID - Keep area clean and dry Assessment & Plan (06/24/2020 10:57 AM TUBE SIZER AND CUTTER OPERATOR): Chyna intertrigo under right breast. Recommend nystatin powder and keeping area dry Therapeutic drug monitoring 06/23/2020 Assessment & Plan (06/29/2020 3:46 PM TUBE SIZER AND CUTTER OPERATOR): CBC with diff, CMP weekly. Hypertensive disorder 06/22/2020 Assessment & Plan (10/06/2020 2:23 PM CDT): On home amlodipine 2.5 mg daily and metoprolol tartrate 12.5 mg BID. Pt reports good BP control at home (~120/70). - Continue home amlodipine and metoprolol - VS q 4 Assessment & Plan (09/25/2020 8:37 AM TUBE SIZER AND CUTTER OPERATOR): On home amlodipine 2.5 mg daily and metoprolol tartrate 12.5 mg BID. - Continue home amlodipine and metroprolol Assessment & Plan (07/18/2020 8:53 AM TUBE SIZER AND CUTTER OPERATOR): - VS Q4 hrs - Continue home amlodipine, metoprolol Assessment & Plan (07/07/2020 3:05 PM TUBE SIZER AND CUTTER OPERATOR): - Holding all home antihypertensives but resumed low dose metoprolol for HR control - SBP goal 100-160 - Shock postoperatively requiring vasopressors and blood/fluid resuscitation - low dose metoprolol, 2.5mg daily amlodipine started - Monitor I&O and BP Osteomyelitis 06/21/2020 Overview (06/26/2020): Added automatically from request for surgery [id number] Assessment & Plan (11/21/2020 9:19 AM CDT): [...] outcome Assessment & Plan (08/15/2020 10:24 AM TUBE SIZER AND CUTTER OPERATOR): - Pt has completed 6 weeks of IV cefazolin 2g q8hrs for osteomyelitis of the L great toe, s/p amputation, Cx + MSSA. - Given good wound healing, ok to stop IV Cefazolin. - Rin may be removed. - Orders provided for pt to take to facility. Assessment & Plan (07/25/2020 2:14 PM TUBE SIZER AND CUTTER OPERATOR): cx + MSSA - ESR/CRP (07/17): 49/19 Recommendations: - Wound looks to be healing without without e/o infection. - Continue on cefazolin 2g IV q8h as originally planned,06/28-08/09. Assessment & Plan (07/28/2020 12:13 PM TUBE SIZER AND CUTTER OPERATOR): - s/p amputation on 06/28/20 with [...] antibiotics. Assessment & Plan (07/02/2020 12:13 PM TUBE SIZER AND CUTTER OPERATOR): Assessment/Plan 70 year old female with PMH including: T2dm, hyperlipidemia, HTN. Admitted a week after trauma to her L great toe found to be gangrenous on admission to [facility]. She had a bedside debridement there, cx + MSSA. Started on cefazolin and transferred to [facility] for revascularization. - OSH CT/MR L foot [...] will continue to follow. Matt Hernandez MD,MPH Speech Communication Professorpiano builder Division of Infectious Diseases Team 3 ID attending phone- [phone] Pager- [phone] Assessment & Plan (07/05/2020 8:45 AM TUBE SIZER AND CUTTER OPERATOR): - L foot x-ray with soft [...] ramelteon Assessment & Plan (09/25/2020 8:37 AM TUBE SIZER AND CUTTER OPERATOR): On home ramelteon 8 mg nightly prn. - Continue home ramelteon Arteriosclerosis of artery of extremity 07/04/20 11 Assessment & Plan (07/07/2020 2:58 PM TUBE SIZER AND CUTTER OPERATOR): - Continue aspirin, statin daily - [...] 09/25/2020 Assessment & Plan (09/25/2020 8:36 AM TUBE SIZER AND CUTTER OPERATOR): On home ferrous sulfate 325 mg (65 mg elemental iron) daily. - Continue home ferrous sulfate Assessment & Plan (07/28/2020 12:57 PM TUBE SIZER AND CUTTER OPERATOR): - H/H 7.4/22 - Transfused 1 unit 07/27 with appropriate bump in hgb - Monitor CBC Nausea 07/26/2020 07/28/2020 Assessment & Plan (07/27/2020 9:30 AM TUBE SIZER AND CUTTER OPERATOR): - Patient endorses nausea over the last 3 days, she contributes this to flagyl. - Continue zofran PRN Rash 06/30/2020 09/25/2020 Assessment & Plan (09/25/2020 8:40 AM TUBE SIZER AND CUTTER OPERATOR): On home camphor-menthol lotion topically q2 prn, collagenase BID, hydrocortisone 2.5% cream QID, and miconazole 2% powder BID. - Continue home camphor-menthol lotion, collagenase, hydrocortisone cream, and miconazole powder Assessment & Plan (07/05/2020 8:48 AM TUBE SIZER AND CUTTER OPERATOR): - Increasing in area/itching, presumed to [...] 07/02/2020 Assessment & Plan (06/30/2020 12:01 PM TUBE SIZER AND CUTTER OPERATOR): 70 year old female with PMH including: T2dm, hyperlipidemia, HTN. Admitted a week after trauma to her L great toe found to be gangrenous on admission to [facility]. She had a bedside debridement there, cx + MSSA. Started on cefazolin and transferred to [facility] for revascularization. - OSH CT/MR L foot [...] weekend. Assessment & Plan (07/01/2020 9:41 AM TUBE SIZER AND CUTTER OPERATOR): - Gangrenous left great toe, concern for osteomyelitis - L great toe 3v x-ray with underlying osteomyelitis of the distal phalanx - Continuing cefazolin, OSH cultures with MSSA - ID consulted for antibiotic recommendation/chcf plans, following patient. - Podiatry consulted; left [...] on file Legal Sex Female 1:08 PM TUBE SIZER AND CUTTER OPERATOR Gender Identity Not on file Sexual [...] ascending colon Medical Devices Implanted Type Area Lead Press Operator Device Identifier Shelf Expiration Date Model / Serial / Lot SkyWire [id number] Vascu-Guard 8x.8cm Peripheral Patch Vascular Bovine Pericardium - S00 - [id number] Implanted:Qty : 1 on 09/29/2020 by Alessandra Reed MD at [facility] Aneurysm Coils Right: Other - see comments SkyWire 06/07/2025 [id number]-[id number] N / 00 / [id number] Description:Popliteal implan t Bard Peripheral Vascular [id number] Lifestream 7mm 37mm 80cm Balloon Expandable Low Profile Cover - S00 - [id number] Implanted:Qty : 1 on 09/29/2020 by Alessandra Reed MD at [facility] Endoprosthesis Right: Iliac Bard Peripheral Vascular [id number] 03/20/2023 [id number] / 00 / [id number] Bard Peripheral Vascular [id number] Lifestream 7mm 58mm 80cm Balloon Expandable Low Profile Cover - S00 - [id number] Implanted:Qty : 1 on 09/29/2020 by Alessandra Reed MD at [facility] Endoprosthesis Right: Iliac Bard Peripheral Vascular [id number] 07/20/2022 [id number] / 00 / [id number] [employer]l [employer] [id number] Brunswick 6mm 70cm 60cm Removable Ring Stretch Thin Wall Graft - [id number] - [id number] Implanted:Qty : 1 on 06/27/2020 by Alessandra Reed MD at [facility] Graft Left: Leg Wl [employer] [id number] 12/01/2023 [id number] / [id number] / [facility] Vg-0108n Vascu-Guard 8x.8cm Peripheral Patch Vascular Bovine Pericardium - S00 - [id number] Implanted:Qty : 1 on 06/27/2020 by Alessandra Reed MD at [facility] Graft Left: Femoral [facility] 02/22/2025 VG-0108 N / 00 / [id number] [facility] Vg-0108n Vascu-Guard 8x.8cm Peripheral Patch Vascular Bovine Pericardium - S00 - [id number] Implanted:Qty : 1 on 06/27/2020 by Alessandra Reed MD at [facility] Graft Left: Leg [facility] 02/22/2025 VG-0108 N / 00 / [id number] Description:Left popliteal a rtery Wl [employer] [id number] 6mm 80cm 60cm Removable Ring Stretch Thin Wall Graft - [id number] - [id number] Implanted:Qty : 1 on 09/29/2020 by Alessandra Reed MD at [facility] Other - see comments Right: Leg [employer] [id number] 03/21/2024 [id number] 0A / [id number] / 00 [facility] Vg-0108n Vascu-Guard 8x.8cm Peripheral Patch Vascular Bovine Pericardium - S00 - [id number] Implanted:Qty : 1 on 09/29/2020 by Alessandra Reed MD at [facility] Other - see comments Right: Femoral [facility] 06/07/2025 VG-0108 N / 00 / [id number] Description:Bovine patch [facility] Vg-0108n Vascu-Guard 8x.8cm Peripheral Patch Vascular Bovine Pericardium - [id number] Implanted:Qty : 1 on 09/30/2020 by Alessandra Reed MD at [facility] Other - see comments Right: Leg [employer] 05/17/2025 VG-0108 N / / [id number] Description:Tibial-peritonea l branch Bard Peripheral Vascular [id number] Lifestream 7mm 58mm 80cm Balloon Expandable Low Profile Cover - S00 - [id number] Implanted:Qty : 1 on 06/27/2020 by Alessandra Reed MD at [facility] Stent Left: Iliac Bard Peripheral Vascular 07/20/2022 [id number] / 00 / Description:Left external il iac Bard Peripheral Vascular [id number] Lifestream 7mm 37mm 80cm Balloon Expandable Low Profile Cover - S00 - [id number] Implanted:Qty : 1 on 06/27/2020 by Alessandra Reed MD at [facility] Stent Left: Iliac Bard Peripheral Vascular 07/20/2022 [id number] / 00 / Description:Left external il iac Procedures Procedure Name Priority Date/Time Associated Diagnosis Comments COLONOSCOPY 10/28/2023 10:08 AM CDT HEPATITIS C ANTIBODY Routine 09/29/2020 11:35 AM TUBE SIZER AND CUTTER OPERATOR HEMOGLOBIN A1C STAT 09/25/2020 2:14 PM TUBE SIZER AND CUTTER OPERATOR LIPID PANEL Routine 06/22/2020 1:40 AM TUBE SIZER AND CUTTER OPERATOR from Last 3 Months or Most [...] Female Attending MD: Erich Buchanan M.D. Room: [facility] ENDOSCOPY ROOM 9 Note Status: [...] the bowel preparation was evaluatedusing the BBPS (Downey Bowel Preparation Scale) withscores of: Right Colon = 3, Transverse Colon = 3 and Left Colon = 3 (entire mucosa seen well with no residual staining, small fragments of stool or opaqueliquid). The total BBPS score equals 9. The quality of the bowel preparation was evaluated using the BBPS(Downey Bowel Preparation Scale) with scores of: RightColon [...] scope was passedunder direct vision. The PCF [id number] endoscopewas introduced through the anus and [...] today's procedure, please call my office at [phone] and speak to my nurse. - In the unusual situation that you developabdominal pain, bleeding or other significant problems in the days following this procedure please call my office [phone]). After hours and eveningsplease call [phone] and speak to the GI fellow tucker. [...] * Hepatitis C antibody (09/29/2020 11:35 AM TUBE SIZER AND CUTTER OPERATOR) Hep C Ab Nonreactive Nonreactive D[facility] D[facility] Comment:Antibodies to HCV no t detected. Does NOT exclude the possibility of recent exposure to HCV. Blood specimen (specimen) 09/29/2020 11:35 AM TUBE SIZER AND CUTTER OPERATOR 09/29/2020 12:06 PM TUBE SIZER AND CUTTER OPERATOR us Notinfile Unknown LAB MICROBIOLOGY - GENERAL ORD ERABLES Edited Result - Final Performing Organization Address [facility] de Phone Number [facility] [place] [address] * Hemoglobin A1c (09/25/2020 2:14 PM TUBE SIZER AND CUTTER OPERATOR) Hgb A1C 5.4 4.0 - 5.6 % [facility] Estimated Average Glucose 108 mg/dL [facility] Comment: The ADA recommends reporting an estimated Average Glucose (eAG) with all Hemoglobin A1c results using the equation derived from a study of 507 normal and diabetic adults. Minority populations were underrepresented and children were not included. (Diabetes Care 31:4551-7162, 2008). The eAG is not equivalent to a fasting glucose. Blood specimen (specimen) 09/25/2020 2:14 PM TUBE SIZER AND CUTTER OPERATOR 09/25/2020 3:47 PM TUBE SIZER AND CUTTER OPERATOR Alessandra Reed MD LAB BLOOD ORDERABLES Alissa l Result Performing Organization Address [facility] de Phone Number [facility] [place] [address] * Lipid panel (06/22/2020 1:40 AM TUBE SIZER AND CUTTER OPERATOR) Cholesterol 121 30 - 199 mg/dL [facility] Comment: Interpretive Data Ages < or [...] revised on 2018. Triglycerides 84 <=149 mg/dL [facility] Comment: Interpretive Data Ages < or [...] revised on 2018. HDL 42 >=40 mg/dL [facility] Comment: Interpretive Data Ages < or [...] on 2018. LDL, calculated 62 <=129 mg/dL [facility] Comment: Interpretive Data Ages < or [...] revised on 2018. Non-HDL Cholesterol 79 mg/dL [facility] Comment: Interpretive Data Ages < or [...] NOONAN Blood specimen (specimen) 06/22/2020 1:40 AM TUBE SIZER AND CUTTER OPERATOR 06/22/2020 2:35 AM TUBE SIZER AND CUTTER OPERATOR us Alessandra Reed MD LAB BLOOD ORDERABLES Alissa lujan Result DEE D[facility] Department [place] [address] from Last 3 Months or Most Recently Relevant to Health Maintenance Insurance MEDICARE [facility] Address: [facility] [address] [place] [address] MEDICARE [place] MEDICARE [facility] Advance Directives For more information, please contact: [phone] * Full Code (Latest Code Status on [...] AM 07/08/2020 5:16 PM Care Teams Industrial Relations Director Relationship Specialty Start Date End Date Roberto Ocasio DO [address] [place] [id number] PCP - General Family Medicine 01/04/22 Alessandra Reed MD Surgeon Vascular Surgery 07/07/20 Martinez Bergman, TOMERM Referring Physician Podiatry 10/07/20 Ricardo Yost DO [address] [place] [id number] Consulting Physician Gastroenterology 09/23/23
[2024-12-10 21:42] VITALS: BP 151/52; PULSE 67; RESP 16; TEMP 36.6; O2SAT 96
--- OUTSIDE RECORDS SUMMARY | 2024-12-10 22:34 | XMS_ITS | Clinical Summary ---
Author Organization [facility] [address] [facility] Address [address] [place] [address] Care Team Providers Care Pan Puller Name Role Phone Alessandra Reed MD Unavailable [phone] Martinez Bergman DPM Unavailable Roberto Ocasio DO Primary Care Provide r Ricardo Yost DO Unavailable [phone] Allergies Active Allergy Reactions Criticality Noted [...] B12 Assessment & Plan (09/25/2020 2:53 PM DAIRY CATTLE FARM WORKER): On home B12 injections once monthly. Last had an injection several days prior to admission. - CTM Constipation 09/25/2020 Overview (09/25/2020): On home pericolace 8.6-50 mg BID prn. - Continue home pericolace Environmental allergies 09/25/2020 Assessment & Plan (09/25/2020 3:12 PM DAIRY CATTLE FARM WORKER): On home benadryl 25 mg QID prn. [...] statin Assessment & Plan (09/25/2020 8:41 AM DAIRY CATTLE FARM WORKER): H/o RLE PAD s/p RLE bypass c/b [...] 07/27/2020 Assessment & Plan (07/28/2020 12:29 PM DAIRY CATTLE FARM WORKER): - WBC increased yesterday. Stable this am. T max 38 overnight - C. Diff negative 07/27 - Check blood cultures per ID - Check UA, CXR Pressure injury of right heel, stage 2 0 Assessment & Plan (07/26/2020 6:36 AM DAIRY CATTLE FARM WORKER): - Present on admission - Offload with elizabeth boots when in bed - No weight bearing restrictions - Podiatry recommends Allevyn foam dressing change every other day - Betadine paint BID Wound of left groin 07/18/2020 Assessment & Plan (09/25/2020 3:16 PM DAIRY CATTLE FARM WORKER): On home collagenase 250 unit/gram BID. - Continue home collagenase Assessment & Plan (09/12/2020 9:14 AM DAIRY CATTLE FARM WORKER): - STOP Ciprofloxacin 500mg BID and Augmentin [...] concerns. Assessment & Plan (08/15/2020 10:32 AM DAIRY CATTLE FARM WORKER): - Will continue Ciprofloxacin, dose change to [...] hepatitis. Assessment & Plan (07/28/2020 4:38 PM DAIRY CATTLE FARM WORKER): 70 y.o. female w/PMH of T2DM, HTN, [...] follow. Assessment & Plan (07/29/2020 1:06 PM DAIRY CATTLE FARM WORKER): - s/p previous remote R TMA and L PLOW MECHANIC endarterectomy, left EIA angioplasty/stenting and left fem-BK [...] atorvastatin Assessment & Plan (09/25/2020 8:36 AM DAIRY CATTLE FARM WORKER): On home atorvastatin 40 mg daily. - Continue home atorvastatin Assessment & Plan (07/18/2020 8:53 AM DAIRY CATTLE FARM WORKER): - continue home atorvastatin, ASA Drug allergy 07/18/2020 Assessment & Plan (07/26/2020 6:42 AM DAIRY CATTLE FARM WORKER): Previous admission Increasing in area/itching, presumed to be due to drug reaction as she was on empiric antibiotics- cefepime, flagyl, vancomycin, as well as proximity to metoprolol trial. Reported that rash improved after switching back to cefazolin from cefepime; Allergy feels like rash most likely related to medication (Cefepime) vs willy. - Morbilliform rash to L thigh this admission, [facility], now improving - PRN benadryl scheduled zyrtec - Sarna lotion PRN, hydrocortisone cream 4 times daily UTI (urinary tract infection) 07/06/2020 Assessment & Plan (07/07/2020 3:05 PM DAIRY CATTLE FARM WORKER): - Endorsed urinary hesitancy, UA checked with [...] antibiotics. Assessment & Plan (07/26/2020 6:36 AM DAIRY CATTLE FARM WORKER): - dx on 06/28/20 US w/ acute [...] daily Assessment & Plan (09/25/2020 8:35 AM DAIRY CATTLE FARM WORKER): H/o L femoral endarterectomy and profundaplasty, L external iliac artery stenting (Lifestream), and L common femoral to below knee popliteal artery bypass w/ PTFE (06/27/20) c/b LLE DVT. On home xarelto 10 mg daily and ASA 81 mg daily. - Hold home xarelto (see PAD) - Continue home ASA Assessment & Plan (07/07/2020 3:01 PM DAIRY CATTLE FARM WORKER): - Venous injury in OR s/p repair [...] 06/30/2020 Assessment & Plan (09/25/2020 2:54 PM DAIRY CATTLE FARM WORKER): A1c 5.8 (06/22/20). Currently controlled w/ diet. Previously was uncontrolled and was c/b PAD resulting in R toe amputations and RLE arterial bypass in 2011. - LDSSI Assessment & Plan (09/25/2020 8:37 AM DAIRY CATTLE FARM WORKER): A1c 5.8 (06/22/20). Controlled w/ diet. 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 Was on IVP metoprolol in ICU -Transition to PO metoprolol as she is tolerating full diet. Sacral insufficiency fracture 06/25/2020 Assessment & Plan (07/01/2020 9:57 AM DAIRY CATTLE FARM WORKER): - Found on CTA, repeat CT with chronic/subacute right sacral ala insufficiency fracture with no acute fractures noted of the pelvis or proximal femurs - Consulted Orthopedics, non-operative management at this time. - Should follow up in [facility] clinic, ambulatory referral has been placed Candidal intertrigo 06/24/2020 Assessment & Plan (07/01/2020 9:43 AM DAIRY CATTLE FARM WORKER): - Miconazole powder per ID - Keep area clean and dry Assessment & Plan (06/24/2020 10:57 AM DAIRY CATTLE FARM WORKER): Chyna intertrigo under right breast. Recommend nystatin powder and keeping area dry Therapeutic drug monitoring 06/23/2020 Assessment & Plan (06/29/2020 3:46 PM DAIRY CATTLE FARM WORKER): CBC with diff, CMP weekly. Hypertensive disorder 06/22/2020 Assessment & Plan (10/06/2020 2:23 PM CDT): On home amlodipine 2.5 mg daily and metoprolol tartrate 12.5 mg BID. Pt reports good BP control at home (~120/70). - Continue home amlodipine and metoprolol - VS q 4 Assessment & Plan (09/25/2020 8:37 AM DAIRY CATTLE FARM WORKER): On home amlodipine 2.5 mg daily and metoprolol tartrate 12.5 mg BID. - Continue home amlodipine and metroprolol Assessment & Plan (07/18/2020 8:53 AM DAIRY CATTLE FARM WORKER): - VS Q4 hrs - Continue home amlodipine, metoprolol Assessment & Plan (07/07/2020 3:05 PM DAIRY CATTLE FARM WORKER): - Holding all home antihypertensives but resumed low dose metoprolol for HR control - SBP goal 100-160 - Shock postoperatively requiring vasopressors and blood/fluid resuscitation - low dose metoprolol, 2.5mg daily amlodipine started - Monitor I&O and BP Osteomyelitis 06/21/2020 Overview (06/26/2020): Added automatically from request for surgery [id number] Assessment & Plan (11/21/2020 9:19 AM CDT): [...] outcome Assessment & Plan (08/15/2020 10:24 AM DAIRY CATTLE FARM WORKER): - Pt has completed 6 weeks of IV cefazolin 2g q8hrs for osteomyelitis of the L great toe, s/p amputation, Cx + MSSA. - Given good wound healing, ok to stop IV Cefazolin. - Rin may be removed. - Orders provided for pt to take to facility. Assessment & Plan (07/25/2020 2:14 PM DAIRY CATTLE FARM WORKER): cx + MSSA - ESR/CRP (07/17): 49/19 Recommendations: - Wound looks to be healing without without e/o infection. - Continue on cefazolin 2g IV q8h as originally planned,06/28-08/09. Assessment & Plan (07/28/2020 12:13 PM DAIRY CATTLE FARM WORKER): - s/p amputation on 06/28/20 with podiatry [...] antibiotics. Assessment & Plan (07/02/2020 12:13 PM DAIRY CATTLE FARM WORKER): Assessment/Plan 70 year old female with PMH including: T2dm, hyperlipidemia, HTN. Admitted a week after trauma to her L great toe found to be gangrenous on admission to [facility]. She had a bedside debridement there, cx + MSSA. Started on cefazolin and transferred to [facility] for revascularization. - OSH CT/MR L [...] will continue to follow. Matt Hernandez MD,[facility] [place] Reporterpatient access Division of Infectious Diseases Team 3 ID attending phone- [phone] Pager- [phone] Assessment & Plan (07/05/2020 8:45 AM DAIRY CATTLE FARM WORKER): - L foot x-ray with soft tissue [...] ramelteon Assessment & Plan (09/25/2020 8:37 AM DAIRY CATTLE FARM WORKER): On home ramelteon 8 mg nightly prn. - Continue home ramelteon Arteriosclerosis of artery of extremity 07/04/20 11 Assessment & Plan (07/07/2020 2:58 PM DAIRY CATTLE FARM WORKER): - Continue aspirin, statin daily - MIKI [...] 09/25/2020 Assessment & Plan (09/25/2020 8:36 AM DAIRY CATTLE FARM WORKER): On home ferrous sulfate 325 mg (65 mg elemental iron) daily. - Continue home ferrous sulfate Assessment & Plan (07/28/2020 12:57 PM DAIRY CATTLE FARM WORKER): - H/H 7.4/22 - Transfused 1 unit 07/27 with appropriate bump in hgb - Monitor CBC Nausea 07/26/2020 07/28/2020 Assessment & Plan (07/27/2020 9:30 AM DAIRY CATTLE FARM WORKER): - Patient endorses nausea over the last 3 days, she contributes this to flagyl. - Continue zofran PRN Rash 06/30/2020 09/25/2020 Assessment & Plan (09/25/2020 8:40 AM DAIRY CATTLE FARM WORKER): On home camphor-menthol lotion topically q2 prn, collagenase BID, hydrocortisone 2.5% cream QID, and miconazole 2% powder BID. - Continue home camphor-menthol lotion, collagenase, hydrocortisone cream, and miconazole powder Assessment & Plan (07/05/2020 8:48 AM DAIRY CATTLE FARM WORKER): - Increasing in area/itching, presumed to be [...] 07/02/2020 Assessment & Plan (06/30/2020 12:01 PM DAIRY CATTLE FARM WORKER): 70 year old female with PMH including: T2dm, hyperlipidemia, HTN. Admitted a week after trauma to her L great toe found to be gangrenous on admission to [facility]. She had a bedside debridement there, cx + MSSA. Started on cefazolin and transferred to [facility] for revascularization. - OSH CT/MR L [...] weekend. Assessment & Plan (07/01/2020 9:41 AM DAIRY CATTLE FARM WORKER): - Gangrenous left great toe, concern for osteomyelitis - L great toe 3v x-ray with underlying osteomyelitis of the distal phalanx - Continuing cefazolin, OSH cultures with MSSA - ID consulted for antibiotic recommendation/intermediate plans, following patient. - Podiatry consulted; left [...] on file Legal Sex Female 1:08 PM DAIRY CATTLE FARM WORKER Gender Identity Not on file Sexual Orientation [...] Discontinued 10/28/2023 Medical Devices Implanted Type Area Chief Projectionist Device Identifier Shelf Expiration Date Model / Serial / Lot [employer] [id number] Vascu-Guard 8x.8cm Peripheral Patch Vascular Bovine Pericardium - S00 - [id number] Implanted:Qty : 1 on 09/29/2020 by Alessandra Reed MD at [facility] Aneurysm Coils Right: Other - see comments [employer] 06/07/2025 [id number]-[id number] N / 00 / [id number] Description:Popliteal implan t Bard Peripheral Vascular [id number] Lifestream 7mm 37mm 80cm Balloon Expandable Low Profile Cover - S00 - [id number] Implanted:Qty : 1 on 09/29/2020 by Alessandra Reed MD at [facility] Endoprosthesis Right: Iliac Bard Peripheral Vascular [id number] 03/20/2023 [id number] / 00 / [id number] Bard Peripheral Vascular [id number] Lifestream 7mm 58mm 80cm Balloon Expandable Low Profile Cover - S00 - [id number] Implanted:Qty : 1 on 09/29/2020 by Alessandra Reed MD at [facility] Endoprosthesis Right: Iliac Bard Peripheral Vascular [id number] 07/20/2022 [id number] / 00 / [id number] [employer] [id number] Charlotte 6mm 70cm 60cm Removable Ring Stretch Thin Wall Graft - [id number] - [id number] Implanted:Qty : 1 on 06/27/2020 by Alessandra Reed MD at [facility] Graft Left: Leg [employer] [id number] 12/01/2023 [id number] / [id number] / [employer] Vg-[id number] Vascu-Guard 8x.8cm Peripheral Patch Vascular Bovine Pericardium - S00 - [id number] Implanted:Qty : 1 on 06/27/2020 by Alessandra Reed MD at [facility] Graft Left: Femoral [employer] 02/22/2025 VG-0108 N / 00 / [id number] [employer] Vg-[id number] Vascu-Guard 8x.8cm Peripheral Patch Vascular Bovine Pericardium - S00 - [id number] Implanted:Qty : 1 on 06/27/2020 by Alessandra Reed MD at [facility] Graft Left: Leg [employer] 02/22/2025 VG-0108 N / 00 / [id number] Description:Left popliteal a rtery [employer] [id number] Charlotte 6mm 80cm 60cm Removable Ring Stretch Thin Wall Graft - [id number] - [id number] Implanted:Qty : 1 on 09/29/2020 by Alessandra Reed MD at [facility] Other - see comments Right: Leg [employer] [id number] 03/21/2024 [id number] / [id number] / 00 [employer] Vg-0108n Vascu-Guard 8x.8cm Peripheral Patch Vascular Bovine Pericardium - S00 - [id number] Implanted:Qty : 1 on 09/29/2020 by Alessandra Reed MD at [facility] Other - see comments Right: Femoral [employer] 06/07/2025 VG-0108 N / 00 / [id number] Description:Bovine patch [employer] Vg-0108n Vascu-Guard 8x.8cm Peripheral Patch Vascular Bovine Pericardium - [id number] Implanted:Qty : 1 on 09/30/2020 by Alessandra Reed MD at [facility] Other - see comments Right: Leg [employer] 05/17/2025 VG-0108 N / / [id number] Description:Tibial-peritonea l branch Bard Peripheral Vascular [id number] Lifestream 7mm 58mm 80cm Balloon Expandable Low Profile Cover - S00 - [id number] Implanted:Qty : 1 on 06/27/2020 by Alessandra Reed MD at [facility] Stent Left: Iliac Bard Peripheral Vascular 07/20/2022 [id number] / 00 / Description:Left external il iac Bard Peripheral Vascular [id number] Lifestream 7mm 37mm 80cm Balloon Expandable Low Profile Cover - S00 - [id number] Implanted:Qty : 1 on 06/27/2020 by Alessandra Reed MD at [facility] Stent Left: Iliac Bard Peripheral Vascular 07/20/2022 [id number] / / Description:Left external il iac Procedures Procedure Name Priority Date/Time Associated Diagnosis Comments COLONOSCOPY 10/28/2023 10:08 AM CDT HEPATITIS C ANTIBODY Routine 09/29/2020 11:35 AM DAIRY CATTLE FARM WORKER HEMOGLOBIN A1C STAT 09/25/2020 2:14 PM DAIRY CATTLE FARM WORKER LIPID PANEL Routine 06/22/2020 1:40 AM DAIRY CATTLE FARM WORKER from Last 3 Months or Most Recently Relevant to Health Maintenance Results * Colonoscopy (10/28/2023 10:08 AM CDT) Anatomical Region Laterality Modality Other Narrative Procedure Note Erich Terry MD - 10/28/2023 10:08 AM CDT [facility] Patient Name: Camilla Valadez Procedure Date: 10/28/2023 10:08 AM Date of : 1950 Admit Type: Outpatient Age: 73 Gender: Female Attending MD: Erich Buchanan M.D. Room: [facility] 9 Note Status: Finalized Procedure: [...] the bowel preparation was evaluatedusing the BBPS ([place] Bowel Preparation Scale) withscores of: Right Colon = 3, Transverse Colon = 3 and Left Colon = 3 (entire mucosa seen well with no residual staining, small fragments of stool or opaqueliquid). The total BBPS score equals 9. The quality of the bowel preparation was evaluated using the BBPS([place] Bowel Preparation Scale) with scores of: RightColon [...] scope was passedunder direct vision. The PCF [id number] endoscopewas introduced through the anus and [...] today's procedure, please call my office at [phone] and speak to my nurse. - In the unusual situation that you developabdominal pain, bleeding or other significant problems in the days following this procedure please call my office [phone]). After hours and eveningsplease call [phone] and speak to the GI fellow tucker. [...] * Hepatitis C antibody (09/29/2020 11:35 AM DAIRY CATTLE FARM WORKER) Hep C Ab Nonreactive Nonreactive DEE DEE NOONAN Comment:Antibodies to HCV no t detected. Does NOT exclude the possibility of recent exposure to HCV. Blood specimen (specimen) 09/29/2020 11:35 AM DAIRY CATTLE FARM WORKER 09/29/2020 12:06 PM DAIRY CATTLE FARM WORKER Notinfile Unknown LAB MICROBIOLOGY - GENERAL ORD ERABLES Edited Result - Final [facility] Department [place] [address] * Hemoglobin A1c (09/25/2020 2:14 PM DAIRY CATTLE FARM WORKER) Hgb A1C 5.4 4.0 - 5.6 % [facility] Estimated Average Glucose 108 mg/dL DEE DEE [facility] Comment: The ADA recommends reporting an estimated Average Glucose (eAG) with all Hemoglobin A1c results using the equation derived from a study of 507 normal and diabetic adults. Minority populations were underrepresented and children were not included. (Diabetes Care 31:6621-4074, 2008). The eAG is not equivalent to a fasting glucose. Blood specimen (specimen) 09/25/2020 2:14 PM DAIRY CATTLE FARM WORKER 09/25/2020 3:47 PM DAIRY CATTLE FARM WORKER Alessandra Reed MD LAB BLOOD ORDERABLES Alissa lujan Result [facility] Department [place] [address] * Lipid panel (06/22/2020 1:40 AM DAIRY CATTLE FARM WORKER) Cholesterol 121 30 - 199 mg/dL DEE DEE [facility] Comment: Interpretive Data Ages < or [...] 2018. Triglycerides 84 <=149 mg/dL DEE DEE [facility] Comment: Interpretive Data Ages < or [...] revised on 2018. HDL 42 >=40 mg/dL [facility] Comment: Interpretive Data Ages < or [...] on 2018. LDL, calculated 62 <=129 mg/dL [facility] Comment: Interpretive Data Ages < or = [...] revised on 2018. Non-HDL Cholesterol 79 mg/dL [facility] Comment: Interpretive Data Ages < or [...] last revised on 2018. Chol/HDL ratio 3 [facility] Blood specimen (specimen) 06/22/2020 1:40 AM DAIRY CATTLE FARM WORKER 06/22/2020 2:35 AM DAIRY CATTLE FARM WORKER us Alessandra Reed MD LAB BLOOD ORDERABLES Alissa lujan Result [facility] Department [place] [address] from Last 3 Months or Most Recently Relevant to Health Maintenance Insurance MEDICARE MEDICARE [facility] MEDICARE [facility] Advance Directives For more information, please contact: [phone] * Full Code (Latest Code Status on File) Date Activated Date Inactivated Comments 10/28/2023 9:47 AM 10/28/2023 4:32 PM * Full Code Date Activated Date Inactivated Comments 09/25/2020 2:00 PM 10/07/2020 11:21 PM * Full Code Date Activated Date Inactivated Comments 07/17/2020 10:29 PM 07/30/2020 4:35 PM * Full Code Date Activated Date Inactivated Comments 06/22/2020 12:49 AM 07/08/2020 5:16 PM Care Teams Pan Puller Relationship Specialty Start Date End Date Roberto Ocasio DO [address] [place] [address] PCP - General Family Medicine 01/04/22 Alessandra Reed MD Surgeon Vascular Surgery 07/07/20 Martinez Bergman DPM Referring Physician Podiatry 10/07/20 Ricardo Yost DO [facility] [place] [address] Consulting Physician Gastroenterology 09/23/23
--- OUTSIDE RECORDS SUMMARY | 2024-12-10 22:34 | XMS_ITS | Referral Summary ---
Author Organization [facility] [address] [facility] [address] [place] [address] Care Team Providers Care Vertica Architect Name Role Phone Alessandra Reed MD Unavailable Martinez Bergman DPM Unavailable [phone] Roberto Ocasio DO Primary Care Provide r Ricardo Yost DO Unavailable [phone] Allergies Active Allergy Reactions Criticality Noted [...] B12 Assessment & Plan (09/25/2020 2:53 PM PROGRAM COORDINATOR EXECUTIVE EDUCATION): On home B12 injections once monthly. Last had an injection several days prior to admission. - CTM Constipation 09/25/2020 Overview (09/25/2020): On home pericolace 8.6-50 mg BID prn. - Continue home pericolace Environmental allergies 09/25/2020 Assessment & Plan (09/25/2020 3:12 PM PROGRAM COORDINATOR EXECUTIVE EDUCATION): On home benadryl 25 mg QID prn. [...] statin Assessment & Plan (09/25/2020 8:41 AM PROGRAM COORDINATOR EXECUTIVE EDUCATION): H/o RLE PAD s/p RLE bypass c/b [...] 07/27/2020 Assessment & Plan (07/28/2020 12:29 PM PROGRAM COORDINATOR EXECUTIVE EDUCATION): - WBC increased yesterday. Stable this am. T max 38 overnight - C. Diff negative 07/27 - Check blood cultures per ID - Check UA, CXR Pressure injury of right heel, stage 2 0 Assessment & Plan (07/26/2020 6:36 AM PROGRAM COORDINATOR EXECUTIVE EDUCATION): - Present on admission - Offload with elizabeth boots when in bed - No weight bearing restrictions - Podiatry recommends Allevyn foam dressing change every other day - Betadine paint BID Wound of left groin 07/18/2020 Assessment & Plan (09/25/2020 3:16 PM PROGRAM COORDINATOR EXECUTIVE EDUCATION): On home collagenase 250 unit/gram BID. - Continue home collagenase Assessment & Plan (09/12/2020 9:14 AM PROGRAM COORDINATOR EXECUTIVE EDUCATION): - STOP Ciprofloxacin 500mg BID and Augmentin [...] concerns. Assessment & Plan (08/15/2020 10:32 AM PROGRAM COORDINATOR EXECUTIVE EDUCATION): - Will continue Ciprofloxacin, dose change to [...] hepatitis. Assessment & Plan (07/28/2020 4:38 PM PROGRAM COORDINATOR EXECUTIVE EDUCATION): 70 y.o. female w/PMH of T2DM, HTN, [...] follow. 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 - Continue home atorvastatin Assessment & Plan (07/18/2020 8:53 AM PROGRAM COORDINATOR EXECUTIVE EDUCATION): - continue home atorvastatin, ASA Drug allergy 07/18/2020 Assessment & Plan (07/26/2020 6:42 AM PROGRAM COORDINATOR EXECUTIVE EDUCATION): Previous admission Increasing in area/itching, presumed to be due to drug reaction as she was on empiric antibiotics- cefepime, flagyl, vancomycin, as well as proximity to metoprolol trial. Reported that rash improved after switching back to cefazolin from cefepime; Allergy feels like rash most likely related to medication (Cefepime) vs willy. - Morbilliform rash to L thigh this admission, [facility]ed, now improving - PRN benadryl scheduled zyrtec - Sarna lotion PRN, hydrocortisone cream 4 times daily UTI (urinary tract infection) 07/06/2020 Assessment & Plan (07/07/2020 3:05 PM PROGRAM COORDINATOR EXECUTIVE EDUCATION): - Endorsed urinary hesitancy, UA checked with [...] antibiotics. Assessment & Plan (07/26/2020 6:36 AM PROGRAM COORDINATOR EXECUTIVE EDUCATION): - dx on 06/28/20 US w/ acute [...] daily Assessment & Plan (09/25/2020 8:35 AM PROGRAM COORDINATOR EXECUTIVE EDUCATION): H/o L femoral endarterectomy and profundaplasty, L external iliac artery stenting (Lifestream), and L common femoral to below knee popliteal artery bypass w/ PTFE (06/27/20) c/b LLE DVT. On home xarelto 10 mg daily and ASA 81 mg daily. - Hold home xarelto (see PAD) - Continue home ASA Assessment & Plan (07/07/2020 3:01 PM PROGRAM COORDINATOR EXECUTIVE EDUCATION): - Venous injury in OR s/p repair [...] 06/30/2020 Assessment & Plan (09/25/2020 2:54 PM PROGRAM COORDINATOR EXECUTIVE EDUCATION): A1c 5.8 (06/22/20). Currently controlled w/ diet. Previously was uncontrolled and was c/b PAD resulting in R toe amputations and RLE arterial bypass in 2011. - LDSSI Assessment & Plan (09/25/2020 8:37 AM PROGRAM COORDINATOR EXECUTIVE EDUCATION): A1c 5.8 (06/22/20). Controlled w/ diet. - LDSSI Assessment & Plan (07/18/2020 8:52 AM PROGRAM COORDINATOR EXECUTIVE EDUCATION): - Diet controlled at home - LD SSI while inpatient - Carb consistent diet Assessment & Plan (07/03/2020 8:30 AM PROGRAM COORDINATOR EXECUTIVE EDUCATION): T2 DM w/ complications of diabetic neuropathy BLE and non-healing wounds with amputations: - A1c 5.8% - Podiatry reviewed diabetic foot care instructions w/ pt - Managed with dietary modifications at home per pt - HDSSI, continue to monitor BG Tachycardia 06/30/2020 Assessment & Plan (06/30/2020 10:15 PM PROGRAM COORDINATOR EXECUTIVE EDUCATION): Persistent throughout hospitalization, volume status euvolemic postoperatively. Was on IVP metoprolol in ICU -Transition to PO metoprolol as she is tolerating full diet. Sacral insufficiency fracture 06/25/2020 Assessment & Plan (07/01/2020 9:57 AM PROGRAM COORDINATOR EXECUTIVE EDUCATION): - Found on CTA, repeat CT with chronic/subacute right sacral ala insufficiency fracture with no acute fractures noted of the pelvis or proximal femurs - Consulted Orthopedics, non-operative management at this time. - Should follow up in [facility], ambulatory referral has been placed Candidal intertrigo 06/24/2020 Assessment & Plan (07/01/2020 9:43 AM PROGRAM COORDINATOR EXECUTIVE EDUCATION): - Miconazole powder per ID - Keep area clean and dry Assessment & Plan (06/24/2020 10:57 AM PROGRAM COORDINATOR EXECUTIVE EDUCATION): Chyna intertrigo under right breast. Recommend nystatin powder and keeping area dry Therapeutic drug monitoring 06/23/2020 Assessment & Plan (06/29/2020 3:46 PM PROGRAM COORDINATOR EXECUTIVE EDUCATION): CBC with diff, CMP weekly. Hypertensive disorder 06/22/2020 Assessment & Plan (10/06/2020 2:23 PM CDT): On home amlodipine 2.5 mg daily and metoprolol tartrate 12.5 mg BID. Pt reports good BP control at home (~120/70). - Continue home amlodipine and metoprolol - VS q 4 Assessment & Plan (09/25/2020 8:37 AM PROGRAM COORDINATOR EXECUTIVE EDUCATION): On home amlodipine 2.5 mg daily and metoprolol tartrate 12.5 mg BID. - Continue home amlodipine and metroprolol Assessment & Plan (07/18/2020 8:53 AM PROGRAM COORDINATOR EXECUTIVE EDUCATION): - VS Q4 hrs - Continue home amlodipine, metoprolol Assessment & Plan (07/07/2020 3:05 PM PROGRAM COORDINATOR EXECUTIVE EDUCATION): - Holding all home antihypertensives but resumed low dose metoprolol for HR control - SBP goal 100-160 - Shock postoperatively requiring vasopressors and blood/fluid resuscitation - low dose metoprolol, 2.5mg daily amlodipine started - Monitor I&O and BP Osteomyelitis 06/21/2020 Overview (06/26/2020): Added automatically from request for surgery [id number] Assessment & Plan (11/21/2020 9:19 AM CDT): [...] outcome Assessment & Plan (08/15/2020 10:24 AM PROGRAM COORDINATOR EXECUTIVE EDUCATION): - Pt has completed 6 weeks of IV cefazolin 2g q8hrs for osteomyelitis of the L great toe, s/p amputation, Cx + MSSA. - Given good wound healing, ok to stop IV Cefazolin. - Rin may be removed. - Orders provided for pt to take to facility. Assessment & Plan (07/25/2020 2:14 PM PROGRAM COORDINATOR EXECUTIVE EDUCATION): cx + MSSA - ESR/CRP (07/17): 49/19 Recommendations: - Wound looks to be healing without without e/o infection. - Continue on cefazolin 2g IV q8h as originally planned,06/28-08/09. Assessment & Plan (07/28/2020 12:13 PM PROGRAM COORDINATOR EXECUTIVE EDUCATION): - s/p amputation on 06/28/20 with podiatry [...] antibiotics. Assessment & Plan (07/02/2020 12:13 PM PROGRAM COORDINATOR EXECUTIVE EDUCATION): Assessment/Plan 70 year old female with PMH including: T2dm, hyperlipidemia, HTN. Admitted a week after trauma to her L great toe found to be gangrenous on admission to [facility]. She had a bedside debridement there, cx + MSSA. Started on cefazolin and transferred to [facility] for revascularization. - OSH CT/MR L foot [...] will continue to follow. Matt Hernandez MD,MPH Traffic Assistantassistant superintendent for curriculum Division of Infectious Diseases Team 3 ID attending phone- [phone] Pager- [phone] Assessment & Plan (07/05/2020 8:45 AM PROGRAM COORDINATOR EXECUTIVE EDUCATION): - L foot x-ray with soft tissue [...] ramelteon Assessment & Plan (09/25/2020 8:37 AM PROGRAM COORDINATOR EXECUTIVE EDUCATION): On home ramelteon 8 mg nightly prn. - Continue home ramelteon Arteriosclerosis of artery of extremity 07/04/20 11 Assessment & Plan (07/07/2020 2:58 PM PROGRAM COORDINATOR EXECUTIVE EDUCATION): - Continue aspirin, statin daily - MIKI [...] 09/25/2020 Assessment & Plan (09/25/2020 8:36 AM PROGRAM COORDINATOR EXECUTIVE EDUCATION): On home ferrous sulfate 325 mg (65 mg elemental iron) daily. - Continue home ferrous sulfate Assessment & Plan (07/28/2020 12:57 PM PROGRAM COORDINATOR EXECUTIVE EDUCATION): - H/H 7.4/22 - Transfused 1 unit 07/27 with appropriate bump in hgb - Monitor CBC Nausea 07/26/2020 07/28/2020 Assessment & Plan (07/27/2020 9:30 AM PROGRAM COORDINATOR EXECUTIVE EDUCATION): - Patient endorses nausea over the last 3 days, she contributes this to flagyl. - Continue zofran PRN Rash 06/30/2020 09/25/2020 Assessment & Plan (09/25/2020 8:40 AM PROGRAM COORDINATOR EXECUTIVE EDUCATION): On home camphor-menthol lotion topically q2 prn, collagenase BID, hydrocortisone 2.5% cream QID, and miconazole 2% powder BID. - Continue home camphor-menthol lotion, collagenase, hydrocortisone cream, and miconazole powder Assessment & Plan (07/05/2020 8:48 AM PROGRAM COORDINATOR EXECUTIVE EDUCATION): - Increasing in area/itching, presumed to be [...] 07/02/2020 Assessment & Plan (06/30/2020 12:01 PM PROGRAM COORDINATOR EXECUTIVE EDUCATION): 70 year old female with PMH including: T2dm, hyperlipidemia, HTN. Admitted a week after trauma to her L great toe found to be gangrenous on admission to [facility]. She had a bedside debridement there, cx + MSSA. Started on cefazolin and transferred to [facility] for revascularization. - OSH CT/MR L foot [...] weekend. Assessment & Plan (07/01/2020 9:41 AM PROGRAM COORDINATOR EXECUTIVE EDUCATION): - Gangrenous left great toe, concern for [...] on file Legal Sex Female 1:08 PM PROGRAM COORDINATOR EXECUTIVE EDUCATION Gender Identity Not on file Sexual Orientation [...] colon Medical Devices Implanted Type Area Lead Data Architect Device Identifier Shelf Expiration Date Model / Serial / Lot [employer] Vg-[id number] Vascu-Guard 8x.8cm Peripheral Patch Vascular Bovine Pericardium - S00 - [id number] Implanted:Qty : 1 on 09/29/2020 by Alessandra Reed MD at [facility] Aneurysm Coils Right: Other - see comments [employer] 06/07/2025 VG-0108 N / 00 / [id number] Description:Popliteal implan t Bard Peripheral Vascular [id number] Lifestream 7mm 37mm 80cm Balloon Expandable Low Profile Cover - S00 - [id number] Implanted:Qty : 1 on 09/29/2020 by Alessandra Reed MD at [facility] Endoprosthesis Right: Iliac Bard [employer] [id number] 03/20/2023 [id number] / 00 / [id number] Bard Peripheral Vascular [id number] Lifestream 7mm 58mm 80cm Balloon Expandable Low Profile Cover - S00 - [id number] Implanted:Qty : 1 on 09/29/2020 by Alessandra Reed MD at [facility] Endoprosthesis Right: Iliac Bard Peripheral Vascular [id number] 07/20/2022 [id number] / 00 / [id number] Wl [employer] [id number] [place] 6mm 70cm 60cm Removable Ring Stretch Thin Wall Graft - [id number] - [id number] Implanted:Qty : 1 on 06/27/2020 by Alessandra Reed MD at [facility] Graft Left: Leg Wl [employer] [id number] 12/01/2023 [id number] / [id number] / [facility] [employer] Vg-0108n Vascu-Guard 8x.8cm Peripheral Patch Vascular Bovine Pericardium - S00 - [id number] Implanted:Qty : 1 on 06/27/2020 by Alessandra Reed MD at [facility] Graft Left: Femoral [facility] 02/22/2025 VG-0108 N / 00 / [id number] [facility] [employer] Vg-0108n Vascu-Guard 8x.8cm Peripheral Patch Vascular Bovine Pericardium - S00 - [id number] Implanted:Qty : 1 on 06/27/2020 by Alessandra Reed MD at [facility] Graft Left: Leg [facility] [employer] 02/22/2025 VG-0108 N / 00 / [id number] Description:Left popliteal a rtery Wl [employer] [id number] [place] 6mm 80cm 60cm Removable Ring Stretch Thin Wall Graft - [id number] - [id number] Implanted:Qty : 1 on 09/29/2020 by Alessandra Reed MD at [facility] Other - see comments Right: Leg Wl [employer] [id number] 03/21/2024 [id number] / [id number] / 00 [facility] [employer] Vg-0108n Vascu-Guard 8x.8cm Peripheral Patch Vascular Bovine Pericardium - S00 - [id number] Implanted:Qty : 1 on 09/29/2020 by Alessandra Reed MD at [facility] Other - see comments Right: Femoral [facility] [employer] 06/07/2025 VG-0108 N / 00 / [id number] Description:Bovine patch [facility] [employer] Vg-0108n Vascu-Guard 8x.8cm Peripheral Patch Vascular Bovine Pericardium - [id number] Implanted:Qty : 1 on 09/30/2020 by Alessandra Reed MD at [facility] Other - see comments Right: Leg [employer] 05/17/2025 VG-0108 N / / [id number] Description:Tibial-peritonea l branch Bard Peripheral Vascular [id number] Lifestream 7mm 58mm 80cm Balloon Expandable Low Profile Cover - S00 - [id number] Implanted:Qty : 1 on 06/27/2020 by Alessandra Reed MD at [facility] Stent Left: Iliac [employer] 07/20/2022 [id number] / 00 / Description:Left external il iac Bard Peripheral [employer]ascular [id number] Lifestream 7mm 37mm 80cm Balloon Expandable Low Profile Cover - S00 - [id number] Implanted:Qty : 1 on 06/27/2020 by Alessandra Reed MD at [facility] Stent Left: Iliac [employer] 07/20/2022 [id number] / 00 / Description:Left external il iac Procedures Procedure Name Priority Date/Time Associated Diagnosis Comments COLONOSCOPY 10/28/2023 10:08 AM CDT HEPATITIS C ANTIBODY Routine 09/29/2020 11:35 AM PROGRAM COORDINATOR EXECUTIVE EDUCATION HEMOGLOBIN A1C STAT 09/25/2020 2:14 PM PROGRAM COORDINATOR EXECUTIVE EDUCATION LIPID PANEL Routine 06/22/2020 1:40 AM PROGRAM COORDINATOR EXECUTIVE EDUCATION from Last 3 Months or Most Recently [...] Attending MD: Erich Buchanan M.D. Room: [facility] ENDOSCOPY ROOM 9 Note Status: Finalized Procedure: [...] the bowel preparation was evaluatedusing the BBPS ([place] Bowel Preparation Scale) withscores of: Right Colon = 3, Transverse Colon = 3 and Left Colon = 3 (entire mucosa seen well with no residual staining, small fragments of stool or opaqueliquid). The total BBPS score equals 9. The quality of the bowel preparation was evaluated using the BBPS([place] Bowel Preparation Scale) with scores of: RightColon [...] scope was passedunder direct vision. The PCF [id number] endoscopewas introduced through the anus and [...] today's procedure, please call my office at [phone] and speak to my nurse. - In the unusual situation that you developabdominal pain, bleeding or other significant problems in the days following this procedure please call my office [phone]). After hours and eveningsplease call [phone] and speak to the GI fellow tucker. [...] * Hepatitis C antibody (09/29/2020 11:35 AM PROGRAM COORDINATOR EXECUTIVE EDUCATION) Hep C Ab Nonreactive Nonreactive [facility] Comment:Antibodies to HCV no t detected. Does NOT exclude the possibility of recent exposure to HCV. Blood specimen (specimen) 09/29/2020 11:35 AM PROGRAM COORDINATOR EXECUTIVE EDUCATION 09/29/2020 12:06 PM PROGRAM COORDINATOR EXECUTIVE EDUCATION us Notinfile Unknown LAB MICROBIOLOGY - GENERAL ORD ERABLES Edited Result - Final Performing Organization Address [facility] de Phone Number [facility] [place] [address] * Hemoglobin A1c (09/25/2020 2:14 PM PROGRAM COORDINATOR EXECUTIVE EDUCATION) Hgb A1C 5.4 4.0 - 5.6 % [facility] Estimated Average Glucose 108 mg/dL [facility] Comment: The ADA recommends reporting an estimated Average Glucose (eAG) with all Hemoglobin A1c results using the equation derived from a study of 507 normal and diabetic adults. Minority populations were underrepresented and children were not included. (Diabetes Care 31:4578-2097, 2008). The eAG is not equivalent to a fasting glucose. Blood specimen (specimen) 09/25/2020 2:14 PM PROGRAM COORDINATOR EXECUTIVE EDUCATION 09/25/2020 3:47 PM PROGRAM COORDINATOR EXECUTIVE EDUCATION Alessandra Reed MD LAB BLOOD ORDERABLES Alissa l Result Performing Organization Address [facility] de Phone Number [facility] [place] [address] * Lipid panel (06/22/2020 1:40 AM PROGRAM COORDINATOR EXECUTIVE EDUCATION) Cholesterol 121 30 - 199 mg/dL [facility] Comment: Interpretive Data Ages < or [...] on 2018. Triglycerides 84 <=149 mg/dL [facility] Comment: Interpretive Data Ages < or [...] on 2018. HDL 42 >=40 mg/dL [facility] Comment: Interpretive Data Ages < or [...] 2018. LDL, calculated 62 <=129 mg/dL [facility] Comment: Interpretive Data Ages < or [...] on 2018. Non-HDL Cholesterol 79 mg/dL [facility] Comment: Interpretive Data Ages < or [...] NOONAN Blood specimen (specimen) 06/22/2020 1:40 AM PROGRAM COORDINATOR EXECUTIVE EDUCATION 06/22/2020 2:35 AM PROGRAM COORDINATOR EXECUTIVE EDUCATION us Alessandra Reed MD LAB BLOOD ORDERABLES Alissa lujan Result [facility] Department [place] [address] from Last 3 Months or Most Recently Relevant to Health Maintenance Insurance MEDICARE [facility] Address: [facility] [address] [place] [address] MEDICARE [employer] MEDICARE [facility] Advance Directives For more information, please contact: [phone] * Full Code (Latest Code Status on File) Date Activated Date Inactivated Comments 10/28/2023 9:47 AM 10/28/2023 4:32 PM * Full Code Date Activated Date Inactivated Comments 09/25/2020 2:00 PM 10/07/2020 11:21 PM * Full Code Date Activated Date Inactivated Comments 07/17/2020 10:29 PM 07/30/2020 4:35 PM * Full Code Date Activated Date Inactivated Comments 06/22/2020 12:49 AM 07/08/2020 5:16 PM Care Teams Vertica Architect Relationship Specialty Start Date End Date Roberto Ocasio DO [address] [place] [id number] PCP - General Family Medicine 01/04/22 Alessandra Reed MD Surgeon Vascular Surgery 07/07/20 Martinez Bergman, TOMERM Referring Physician Podiatry 10/07/20 Ricardo Yost DO [address] [place] [id number] Consulting Physician Gastroenterology 09/23/23
[2024-12-10 22:59] VITALS: BP 139/77; PULSE 73; RESP 18; O2SAT 96
--- NOTE | 2024-12-10 23:17 | PC.NURSE ---
Pt had 27 beat run of Vtach that was self limiting. States that she was anxious about when a dr would see her, but otherwise denies any symptoms. Dr Slater notified. No new orders at this time.
--- NOTE | 2024-12-10 23:19 | ECG_ITS ---
Test Date: 2024-12-10 23:26:33 Measurements Intervals [place] Rate: 70 P: 22 KS: 185 QRS: -76 QRSD: 130 T: -14 QT: 403 QTc: 435 Interpretive Statements SINUS RHYTHM POSSIBLE LEFT ATRIAL ENLARGEMENT [-0.1mV P-WAVE IN V1/V2] INDETERMINATE AXIS RIGHT BUNDLE BRANCH BLOCK [120+ ms QRS DURATION, UPRIGHT V1, 40+ ms S IN I/aVL/V4/V5/V6] LEFT ANTERIOR FASCICULAR BLOCK [QRS AXIS <= -45, QR IN I, RS IN II] No previous ECG available for comparison Electronically Signed On 12-11-2024 17:11:17 CDT by Hugo Mulligan M.D.
--- NOTE | 2024-12-10 23:25 | ED_ITS ---
HPI - Head Injury General Chief complaint: Head Injury Stated complaint: Hematoma over right eye burst Time Seen by Provider: 12/10/24 22:26 Source: patient and family Limitations: no limitations History of Present Illness HPI Narrative: Patient presents with concern for bleeding from a hematoma. Patient experienced a fall on 11/18/2024. She is on anticoagulation (Xarelto) and experienced significant bruising with injuries at the time requiring a 9 day hospitalization at [facility] which is where she gets much of her care (cardiology, etc.) She notes that her tetanus is up-to-date had been administered within the past 6 months to 1 year. She had a large hematoma over her right eye/at right forehead. This evening it started oozing bleeding and direct pressure was applied with a pressure dressing. Initially at home she had been trying to use several paper towels. This occurred after patient had taken her p.m. dose of Xarelto after dinner. She denies any acute or new trauma to the hematoma, only that it spontaneously started bleeding. Her other medications are as follows: Metoprolol, amlodipine, fenofibrate, statin, aspirin. Related Data Home Medications ?Medication ?Instructions ?Recorded ?Confirmed ?Last Taken ?Type clonidine HCl 0.1 mg tablet 0.05 mg PO BID 10/02/19 06/15/20 Unknown History gabapentin 100 mg capsule 100 mg PO HS 10/02/19 06/15/20 Unknown History amlodipine 5 mg tablet 5 mg PO DAILY 06/15/20 06/15/20 Unknown History melatonin 5 mg tablet 5 mg PO HS PRN Insomnia 06/15/20 06/15/20 Unknown History simvastatin 20 mg tablet 20 mg PO HS 06/15/20 06/15/20 Unknown History temazepam 15 mg capsule 15 mg PO HS 06/15/20 06/15/20 Unknown History triamterene 37.5 37.5 tablet PO DAILY 06/15/20 06/15/20 Unknown History mg-hydrochlorothiazide 25 mg tablet Allergies Allergy/AdvReac Type Severity Reaction Status Date / Time Penicillins Allergy Unknown Rash Verified 12/10/24 21:40 nickel Allergy Rash Verified 12/10/24 21:40 [facility] Past Medical History Medical History Fall 11/18/24 (presented to [facility]); admitted 9 days Chronic anticoagulation Peripheral arterial disease Diet-controlled type 2 diabetes mellitus Gastroesophageal reflux disease Hypercholesterolemia Hypertension Surgical History Surgical History History of section History of vascular surgery (~06/2011) Right lower extremity bypass. History of transmetatarsal amputation of right foot (~06/2011) History of tonsillectomy Family History Family History Father Acute myocardial infarction, Onset Age: 61 Patient's father is Sibling Patient's sister is in good health, Onset Age: 72 Mother Carcinoma of colon, Onset Age: 77 Patient's mother is Social History Social History Social History: Surrogate decision maker: Roberto Valadez, vasiliy. Code status: Full code. Smoking packs per day: 0.75 Smoking cigarettes per day: 15.0 Years smoked: 40 Smoking pack-years: 30.00 Smoking status: Former smoker Smoking end date: 09/19/19 Alcohol intake: current Drinks per week: 7 Substance use: never Substance use type: does not use Additional living arrangements comments: Patient recently moved back to the area after living in [place], [place] for 7 years. Additional occupation/education comments: Retired. Spiritual care concerns: No Exam 2 Narrative: GENERAL: well-nourished, and in no acute distress. EYES: Non injected, non icteric ENT: Nares clear, no rhinorrhea or epistaxis. Gross auditory acuity intact. NECK: Supple. No meningismus. CHEST: Speaking in full sentences. No respiratory distress. HEART: Regular rate and rhythm. . ABDOMEN: Soft, nondistended. No rigidity or guarding. Not peritoneal EXTREMITIES: Normal range of motion. No lower extremity edema. SKIN: Warm, dry. Patient has significant old ecchymoses overlying head/face, neck, and chest, in various stages of healing. Hematoma overlying right forehead has subcentimeter central area that is open, oozing. NEURO: No focal deficits. Alert and oriented. Answering questions. Following commands. Normal speech without aphasia or dysarthria. PSYCH: Normal mood and affect. Course Vital Signs Vital signs: Vital Signs Temperature 97.8 F 12/10/24 21:42 Pulse Rate 67 12/10/24 21:42 Respiratory Rate 16 12/10/24 21:42 Blood Pressure 151/52 H 12/10/24 21:42 Pulse Oximetry 96 12/10/24 21:42 Temperature 97.8 F 12/10/24 21:42 Pulse Rate 69 12/11/24 01:11 Respiratory Rate 18 12/11/24 01:11 Blood Pressure 160/70 H 12/11/24 01:11 Pulse Oximetry 97 12/11/24 01:11 Procedures Laceration Laceration 1: Date: 12/11/24 Time: 00:30 Site: scalp Side (If applicable): right Description: linear Depth: simple, single layer Local Anesthetic: none Pre-repair: wound explored and irrigated ====== Skin Level ====== Skin layer closed with: dermabond and steri strips ====== Subcutaneous Layer ====== ====== Muscle Layer ====== ====== Tendon Layer ====== MDM - Head Injury MDM Narrative Medical decision making narrative: Patient presents with bleeding/oozing from hematoma to her right forehead she developed after a fall on 11/18/2024. This fall injury required her to be admitted for 9 days at [facility] due to various injuries. She is on anticoagulation (Xarelto), and had taken a dose prior to spontaneous bleed from this wound. In the emergency department she is afebrile with acceptable vital signs, slightly elevated systolic and slightly decreased diastolic but with a mean arterial pressure of 85mmHg. Patient does have a run of 27 beat Vtach which resolves spontaneously. Normocytic anemia, had run at this level before but technically a 2+ g drop from previous (though several years ag0). Compared to previous creatinine, today's is an elevation representing an acute kidney injury. IV fluid ordered. Patient declining repeat Head CT. While awaiting to be seen, a 27 beat run of Vtach is appreciated on cardiac monitoring. Immediately went to patient's bedside and She denies any dizziness, chest pain, or shortness of breath. We discussed that there is a high risk of mortality with ventricular tachycardia and the recommendation would be admission for further monitoring this see if she has subsequent episodes whether symptomatic or asymptomatic. The patient is oriented to person, place, and time, has the capacity to make decisions regarding the medical care offered. The patient speaks coherently and exhibits no evidence of having an altered level of consciousness or alcohol or drug intoxication to a point that would impair judgment. Patient would like to be discharged and states that she has follow up care with her aviation program manager and other specialists at [facility]. I again discussed the risks but also encouraged her to follow up and do not hesitate to return to the emergency department with any new, worsening, or unmanaged symptoms. Son present for the discussion. Patient and son signed AMA documentation after thorough discussion. Discharge instructions still provided. Lab Data Attestation: I reviewed the patient's lab results. 12/10/24 23:42 12/10/24 23:42 Labs: Lab Results 12/10/24 Range/Units 23:42 WBC 5.6 (4.5-10.0) K/mm3 RBC 3.67 L (4.2-5.4) M/mm3 Hgb 10.2 L (12.0-15.0) g/dL Hct 32.6 L (37.0-47.0) % MCV 88.8 (80-100) fl MCH 27.8 (26-34) pg MCHC 31.3 L (32-36) g/dl RDW 15.7 H (11.5-14.5) % Plt Count 312 D (150-375) k/mm3 MPV 8.4 (7.4-10.4) fl Immature Gran % (Auto) 0.2 (0-0.5) % Neut % (Auto) 75.1 H (45.5-73.1) % Lymph % (Auto) 10.7 L (18.3-44.2) % Rolette % (Auto) 11.3 H (2.6-8.5) % Eos % (Auto) 1.8 (0-4.4) % Baso % (Auto) 0.9 (0.2-1.2) % Lymph # (Auto) 0.60 L (0.9-3.2) K/mm3 Rolette # (Auto) 0.6 (0.1-0.6) K/mm3 Eos # (Auto) 0.1 (0-0.3) K/mm3 Baso # (Auto) 0.1 (0.0-0.1) K/mm3 Abs Immat Gran (auto) 0.01 (0.00-0.031) K/mm3 Absolute Neuts (auto) 4.2 (1.3-6.7) K/mm3 Absolute Nucleated RBC 0.000 (0.0-0.012) K/mm3 Nucleated RBC % 0.0 (0.0-0.2) % PT 24.3 H (11.1-14.7) Seconds INR 2.1 APTT 37.8 H (22.3-36.8) Seconds Sodium 133 L (137-145) mmol/L Potassium 4.0 (3.4-5.0) mmol/L Chloride 101 (98-107) mmol/L Carbon Dioxide 22 (22-30) mmol/L Anion Gap 10 (4-12) mmol/L BUN 29 H D (7-17) mg/dL Creatinine 1.07 H (0.7-1.0) mg/dL Estim Creat Clear Calc 37 ml/min Estimated GFR 50 L (59 - ) Glucose 136 H (65-110) mg/dL Calcium 9.1 (8.4-10.2) mg/dL Magnesium 1.9 (1.6-2.3) mg/dL Total Bilirubin 0.6 (0.2-1.3) mg/dL AST 29 (14-36) U/L ALT 19 (6-35) U/L Alkaline Phosphatase 65 (38-126) U/L Troponin I < 0.012 (0.000-0.034) ng/mL Total Protein 7.0 (6.3-8.2) g/dL Albumin 4.0 (3.5-5.1) g/dL ECG Data EKG #1: Attestation: I personally reviewed and interpreted this ECG as follows: ECG completion date: 12/10/24 ECG completion time: 23:26 Prior ECG tracings: available for review (06/16/20 incomplete right bundle-branch block) Interpretation: Sinus rhythm at a rate of 70 beats per minute. AK interval 185. QRS 130. QT/QTC 403/423. RBBB given QRS greater [id number]; RSR' M-shaped pattern in V1-V3; wide, slurred S wave in lateral leads (I, aVL and to a lesser degree V5- 6). Discharge Plan Discharge Clinical Impression: Ventricular tachycardia seen on mix house tender, Normocytic anemia, MARCIE (acute kidney injury), Open forehead wound Patient Disposition: Left Against Medical Advice Condition: Stable Instructions: Antibiotic Form, Acute Kidney Injury (DC), Skin Adhesive Care (ED), Anemia (ED) Additional Instructions: As we discussed, and the Steri-Strips and skin glue should flake off over the coming week. Keep the area clean warm and dry especially over the next 24 hours but warm soapy water is fine after that. We discussed the risk of you having ventricular tachycardia again. It is important that you follow-up with your aviation program manager. Do not hesitate to return to the emergency department for any reason. Patient Language: Ukrainian Prescriptions: No Action clonidine HCl 0.1 mg Tablet 0.05 mg PO BID gabapentin 100 mg Capsule 100 mg PO HS amlodipine 5 mg tablet 5 mg PO DAILY temazepam 15 mg capsule 15 mg PO HS simvastatin 20 mg tablet 20 mg PO HS triamterene-hydrochlorothiazid 37.5-25 mg tablet 37.5 tablet PO DAILY Rx Instructions: hydrochlorthiazid 25 mg melatonin 5 mg Tablet 5 mg PO HS PRN (Reason: Insomnia) oxycodone 5 mg tablet 5 mg PO Q4H PRN (Reason: pain) Qty: 90 0RF Follow-up/Referrals: Amarjit,DO Roberto [Primary Care Provider] - Time of Disposition: 00:58
[2024-12-10 23:32] VITALS: BP 163/79; PULSE 73; RESP 18; O2SAT 97
[2024-12-10 23:49] LABS: Basophils Absolute Auto 0.1 K/mm3 (0.0-0.1); Basophils Percent Auto 0.9 % (0.2-1.2); Eosinophils Absolute Auto 0.1 K/mm3 (0-0.3); Eosinophils Percent Auto 1.8 % (0-4.4); Hematocrit 32.6 % (37.0-47.0); Hemoglobin 10.2 g/dL (12.0-15.0); Immature Granulocyte Absolute 0.01 K/mm3 (0.00-0.031); Immature Granulocyte Percent A 0.2 % (0-0.5); Lymphocytes Percent Auto 10.7 % (18.3-44.2); Mean Corpuscular HGB Conc 31.3 g/dl (32-36); Mean Corpuscular Hemoglobin 27.8 pg (26-34); Mean Corpuscular Volume 88.8 fl (80-100); Mean Platelet Volume 8.4 fl (7.4-10.4); Monocytes Absolute Auto 0.6 K/mm3 (0.1-0.6); Monocytes Percent Auto 11.3 % (2.6-8.5); Neutrophils Absolute Auto 4.2 K/mm3 (1.3-6.7); Neutrophils Percent Auto 75.1 % (45.5-73.1); Platelet Count Result 312 k/mm3 (150-375); Red Blood Count 3.67 M/mm3 (4.2-5.4); Red Cell Distribution Width 15.7 % (11.5-14.5); White Blood Count 5.6 K/mm3 (4.5-10.0)
[2024-12-11 00:01] LABS: INR 2.1; Partial Thromboplastin Time 37.8 Seconds (22.3-36.8); Prothrombin Time 24.3 Seconds (11.1-14.7)
--- NOTE | 2024-12-11 00:09 | PC.NURSE ---
Patient requesting to delay head CT. Discussed the need for head CT for pending admission r/t run of vtach. Patient is currently declining admission and therefore does not want the head CT. Education provided, we discussed this at length. Patient calling her son to discuss further.
[2024-12-11 00:14] LABS: Troponin I < 0.012 ng/mL (0.000-0.034)
[2024-12-11 00:25] LABS: Alanine Aminotransferase 19 U/L (6-35); Alkaline Phosphatase 65 U/L (38-126); Anion Gap 10 mmol/L (4-12); Aspartate Amino Transferase 29 U/L (14-36); Bilirubin,Total 0.6 mg/dL (0.2-1.3); Blood Urea Nitrogen 29 mg/dL (7-17); Calcium 9.1 mg/dL (8.4-10.2); Carbon Dioxide 22 mmol/L (22-30); Chloride 101 mmol/L (98-107); Estimated CRCL calculation 37 ml/min; Estimated Glomerular Filt Rate 50; Glucose 136 mg/dL (65-110); Magnesium 1.9 mg/dL (1.6-2.3); Sodium 133 mmol/L (137-145)
--- NOTE | 2024-12-11 00:26 | PC.NURSE ---
Wound irrigated with saline. Dermabond at bedside. Patient continues to refuse admission and head CT. Will notify .
[2024-12-11] MEDS: SODIUM CHLORIDE 0.9% IV 500 ML 999 ML IV CONT (00:45)
[2024-12-11 00:49] VITALS: BP 155/68; PULSE 71; RESP 18; O2SAT 97
--- NOTE | 2024-12-11 00:49 | PC.NURSE ---
MD at bedside for lac repair and discussing recommendation for admission.
--- NOTE | 2024-12-11 01:08 | PC.NURSE ---
AMA paperwork completed by MD. Patient aware of risks of refusal of admission for ventricular tachycardia. Patient continues to refuse admission and further work up. Patient refusing remaining IVF and requesting to leave. Discharge paperwork, AMA paperwork and close f/u instructions reviewed. Patient verbalized understanding. PIV removed. Pt provided wheelchair to exit.
[2024-12-11 01:11] VITALS: BP 160/70; PULSE 69; RESP 18; O2SAT 97
== END 2024-12-11 01:14 | disposition left against medical advice (07) ==
PROVIDERS: Emergency Provider Student in an Organized Health Care Education/Training Program; PCP Student in an Organized Health Care Education/Training Program
DX: S01.80XA Unspecified open wound of other part of head, initial encounter (principal); I47.20 Ventricular tachycardia, unspecified; N17.9 Acute kidney failure, unspecified; I73.9 Peripheral vascular disease, unspecified; I10 Essential (primary) hypertension; E11.51 Type 2 diabetes mellitus with diabetic peripheral angiopathy without gangrene; E78.00 Pure hypercholesterolemia, unspecified; K21.9 Gastro-esophageal reflux disease without esophagitis; Z87.891 Personal history of nicotine dependence; Z89.431 Acquired absence of right foot; Z79.01 Long term (current) use of anticoagulants; W19.XXXA Unspecified fall, initial encounter
CPT/HCPCS: 12001; 36415; 80053; 83735; 84484; 85025; 85610; 85730; 93005; 96360; 99284; J7040